=== PATIENT | female | born 1980 | race Caucasian/White ===

== ENCOUNTER 2025-02-26 21:18 | Observation (INO) | payer OTHER, SELFPAY ==
--- NOTE | ~2025-02-26 | CT_ITS ---
EXAMINATION: CT pelvis wo con DATE: 02/27/2025 01:01 INDICATION: Left hip pain post fall TECHNIQUE: High resolution computed tomography (CT) of the pelvis was performed without intravenous contrast. Additional sagittal and coronal reconstructions were performed. Automated exposure control and iterative reconstruction technique were employed. The dose-length product was 1051.27 mGy-cm. COMPARISON: Radiographs dated 02/26/2025 FINDINGS: Noncemented bilateral total hip arthroplasties which are in near-anatomic alignment. Distal tips of the femoral components extend beyond the caudal margin of the field of imaging. No periprosthetic fractures identified. There are prominent lucencies in the bilateral supra-acetabular regions which suggests particle disease. No evident loosening of the arthroplasty components. There is a nondisplaced sagittal oriented fracture of the left sacral ala. Additional minimally displaced fractures of the left superior pubic ramus and left pubic body. Mild to moderate lower lumbar spondylosis with moderate to severe facet osteoarthritis. Bladder, uterus and bilateral adnexa are unremarkable. There are few diverticula without adjacent from trace stranding along the sigmoid colon. Normal appendix. No free fluid in the pelvis. There are some skin thickening and subcutaneous stranding along the pannus of the anterior pelvic wall which could be seen with cellulitis. No pathologically enlarged pelvic or inguinal lymphadenopathy. IMPRESSION: 1. Minimally displaced fractures of the left sacral ala, left superior pubic ramus and left pubic body. 2. 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 Reviewed, dictated and finalized at location A. [facility] IMPRESSION: 1. Minimally displaced fractures of the left sacral ala, left superior pubic ra mus and left pubic body. 2. 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
--- NOTE | ~2025-02-26 | XR_ITS ---
Examination: XR hip LT 2V w AP pelvis Clinical History: fall Comparison: None Technique: 2 views left hip with AP pelvis Findings/impression: No acute abnormality- 1. Left hip arthroplasty intact without associated fracture or dislocation. 2. No pelvic fracture identified but pubic rami poorly seen due to soft tissue attenuation. 3. Single view right hip arthroplasty intact. Reviewed, dictated and finalized at location R. DEVELOPER
--- NOTE | ~2025-02-26 | XR_ITS ---
Examination: XR knee LT 3V Clinical History: fall Comparison: None Technique: 3 views left knee Findings/impression: 1. Arthroplasty intact without associated fracture or effusion. 2. Small posterior calcifications or joint bodies. Reviewed, dictated and finalized at location R. E COMM[employer] MERCHANT
--- NOTE | ~2025-02-26 | US_ITS ---
EXAMINATION: US venous doppler [facility] DATE: 02/28/2025 16:24 INDICATION: Lower extremity swelling. TECHNIQUE: Grayscale ultrasound images without and with compression and Doppler ultrasound images of the bilateral lower extremity veins were obtained. COMPARISON: None. FINDINGS: The visualized portions of right common femoral vein, profunda (deep) femoral vein, femoral vein, popliteal vein, peroneal veins, posterior tibial veins, and greater saphenous vein outflow are patent. The visualized portions of left common femoral vein, profunda femoral vein, femoral vein, popliteal vein, peroneal veins, posterior tibial veins, and greater saphenous vein outflow are patent. IMPRESSION: 1. No evidence of DVT involving major veins of both Reviewed, dictated and finalized at location T. LE BRANDER
[2025-02-26 21:13] VITALS: BP 120/91; PULSE 97; RESP 19; TEMP 36.4; O2SAT 100
[2025-02-26 21:31] VITALS: BP 130/55; PULSE 91; RESP 20; O2SAT 100
[2025-02-26 21:46] VITALS: BP 135/58; PULSE 90; RESP 15; O2SAT 100
[2025-02-26 22:01] VITALS: BP 132/60; PULSE 95; RESP 14; O2SAT 99
--- OUTSIDE RECORDS SUMMARY | 2025-02-26 23:57 | XMS_ITS ---
Author Organization [facility] Address [address] [place] [address] Care Team Providers Care Eyewear Manufacturing Tech Name Role Phone Yari Wu MD Primary Care Prov ider Leah Moran MD Unavailable [phone] Robert Winkler MD Unavailable [phone] Dedrick Kim MD PhD Unavailable [phone] Johnna Walls RN Unavailable [phone] Transplant Episode Liver Candidate [facility] ([place], [place]) - [facility] Evaluation began on 08/10/2024 Marked as Active on 08/10/2024 Reason: Evaluation - Standard Liver CoordinatorJohnna Walls RN Fax: N/A Email: N/A Scores Score Value Updated Expires Exceptions/Juhi sons CPRA Not available MELD (Calc) 22 02/03/2025 Chinik Organ Diagnosis Organ Primary Contributory Liver Cirrhosis: Autoimmune Care Team Name Role Phone Fax Email Johnna Walls RN Liver Coordinator [phone] N/A N/A Debbie Brooks RN Secondary Coordinator [phone] N/A Robert Winkler MD Referring Physician [phone] N/A Sherrie Álvarez Primary Virtual Recruiter N/A N/A N/A Vanda Flood Resident Services Manager [phone] N/A N/A Events Pre-Transplant Referred: 08/10/2024 Evaluation began: 08/10/2024 Committee: 09/22/2024
--- OUTSIDE RECORDS SUMMARY | 2025-02-26 23:57 | XMS_ITS | Encounter Summary ---
Author Organization [facility] Address [address] [place] [address] Phone Care Team Providers Care Purchasing Coordinator Name Role Phone Yari Wu MD Primary Care Prov ider Leah Moran MD Unavailable [phone] Robert Winkler MD Unavailable Dedrick Kim MD PhD Unavailable [phone] Johnna Walls RN Unavailable [phone] Cheryl Owusu RN Unavailable [phone] Encounter Details Date Type Department Care Team (Latest Contact Info) Description 01/05/2025 Results Follow-Up [facility] Medicine Allergy and Immunology [address] [facility] [address] [place] [address] Adithya Ferrari MD [address] [place] [address] Respiratory pathogen panel Nasopharyngeal, Immune competence, CT Sinus WO Contrast, Cytomegalovirus (CMV) DNA PCR, quantitative Blood Social History Tobacco Use Types Packs/Day Years Used Date Smoking Tobacco: Never Smokeless Tobacco: Never [facility] Utilities Answer Date Recorded In the past 12 months has [employer] electric, gas, oil, or water company threatened to shut off services in your home? No 09/09/2023 Social Connection and Isolation Panel Answer Date Recorded In a typical week, how many times do you talk on the phone with family, friends, or neighbors? More than three times a week 09/09/2023 How often do you get togethe r with friends or relatives? More than three times a week 09/09/2023 How often do you attend chur ch or islam services? Patient declined 09/09/2023 Do you belong to any clubs o r organizations such as mosque groups, unions, fraternal or athletic groups, or school groups? Patient declined 09/09/2023 How often do you attend meet ings of the clubs or organizations you belong to? Patient declined 09/09/2023 Are you , , di vorced, , never , or living with a partner? Never 09/09/2023 Overall Financial Resource Strain (CARDIA) Answe r Date Recorded How hard is it for you to pa y for the very basics like food, housing, medical care, and heating? Not hard at all 08/31/2023 PHQ-2 Answer Date Recorded PHQ-2 Total Score 2 09/17/2024 Exercise Vital Sign Answer Date Recorde d On average, how many days pe r week do you engage in moderate to strenuous exercise (like a brisk walk)? 0 days 08/31/2023 On average, how many minutes do you engage in exercise at this level? 0 min 08/31/2023 Hunger Vital Sign Answer Date Recorded Within the past 12 months, y ou worried that your food would run out before you got the money to buy more. Never true 09/09/19 24 Within the past 12 months, t he food you bought just didn't last and you didn't have money to get more. Never true 09/09/2023 PRAPARE - Transportation Answer Date Re corded In the past 12 months, has l ack of transportation kept you from medical appointments or from getting medications? No 10/2023 In the past 12 months, has l ack of transportation kept you from meetings, work, or from getting things needed for daily living? No 09/09/2023 PHQ-9 Answer Date Recorded PHQ-9 Total Score 11 09/17/2024 Housing Stability Vital Sign Answer Edin e Recorded In the last 12 months, was t here a time when you were not able to pay the mortgage or rent on time? No 09/09/2023 In the past 12 months, how m any times have you moved where you were living? 0 09/09/2023 At any time in the past 12 m [facility], were you homeless or living in a intermediate (including now)? No 09/09/2023 AUDIT-C Answer Date Recorded Frequency of Alcohol Consumption Not on file 12/15/2024 Q2: How many drinks containi ng alcohol do you have on a typical day when you are drinking? Patient does not drink Frequency of Binge Drinking Not on file 12/02 Personal Safety Answer Date Recorded Have you ever been in or are you currently in a harmful physical or emotional relationship or is someone making you feel afraid or unsafe? Denies 09/15/2024 Comments No Sex and Gender Information Value Date Recorded Sex Assigned at Not on file Legal Sex Female 7:24 AM JEWELRY JOBBER Gender Identity Not on file Sexual Orientation Not on file documented as of this encounter Plan of Treatment Upcoming Encounters Date Type Department Care Team (Latest Contact Info) Description 03/11/2025 12:15 PM JEWELRY JOBBER Hospital Encounter [facility] Operating Room [address] [place] [address] [id number] Jay Desouza MD [address] [id number] 03/11/2025 12:15 PM JEWELRY JOBBER - 03/11/2025 1:[address] [facility] Surgery [facility] Operating Room [id number] [place] [address] Jay Desouza MD [address] [address] LARYNGOSCOPY W BIOPSIES Scheduled Procedures Name Priority Associated Diagnoses Date/Ti ms LARYNGOSCOPY PROCEDURE Chronic laryngitis 03/11/2025 12:15 PM JEWELRY JOBBER TRANSPLANT LIVER Encounter for pre-transplant evaluation for liver transplant Autoimmune hepatitis (HCC) documented as of this encounter Visit Diagnoses Not on filedocumented in this encounter Additional Health Concerns Infection Onset Date Last Indicated Resolved Time COVID: Suspected 01/05/2025 01/05/2025 01/05/2025 10:00 PM JEWELRY JOBBER Ring Surveillance: C. auris 01/20/2025 01/20/2025 01/27/2025 7:26 PM JEWELRY JOBBER documented as of this encounter Care Teams Purchasing Coordinator Relationship Specialty Start Date End Date Yari Wu MD PCP - General Family Medicine 06/11/19 Leah Moran MD [address] [place] [address] Referring Physician Gastroenterology 06/13/22 Robert Winkler MD [address] [facility] [address] [place] [address] Referring Physician Transplant Hepatology 06/21/22 Dedrick Kim MD PhD [address] [facility] [address] [place] [address] Referring Physician Allergy and Immunology 06/19/23 Johnna Walls RN [address] [facility] [address] [place] [address] Verifying Specialist 08/10/24 Cheryl Owusu RN [address] [facility] [address] [place] [address] SHOP Outpatient Oral And Maxillofacial Surgeon 01/22/25 02/03/25 documented as of this encounter
--- OUTSIDE RECORDS SUMMARY | 2025-02-26 23:57 | XMS_ITS | Clinical Summary ---
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 Name Role Phone Yari Wu MD Primary Care Prov ider Leah Moran MD Unavailable [phone] Robert Winkler MD Unavailable [phone] Dedrick Kim MD PhD Unavailable [phone] Johnna Walls RN Unavailable [phone] Allergies Active Allergy Reactions Criticality Noted Date Comments Infliximab Itching,Rash Medium 03/10/2015 Cerner Allergy Text Annotation: Remicade rigors Penicillins Rash,Other (See comments) Medium 11/10/2014 Reaction: Cerner Allergy Text Annotation: penicillins Fever Reaction was as a child Medications pantoprazole DR (PROTONIX) 20 mg EC tabletIndications: GERD Take 1 tablet (20 mg total) by mouth nightly 10/10/19 24 Active ursodioL (ACTIGALL) 300 mg capsuleIndications :Cholestatic liver disease Take 5 capsules (1,500 mg total) by mouth with evening meal 150 capsule 11 06/09/19 25 Active predniSONE (DELTASONE) 5 mg tabletIndications: Autoimmune hepatitis (HCC) Take 1.5 tablets (7.5 mg) by mouth daily 7.5 mg QD 45 tablet 11 08/11/19 25 026 Active venlafaxine XR (EFFEXOR-XR) 150 mg 24 hr capsuleIndications :Anxiety with Depression Take 1 capsule (150 mg total) by mouth every morning 75 mg tab and 150 mg tab to equal total daily dose of 225mg 08/20/19 25 Active venlafaxine XR (EFFEXOR-XR) 75 mg 24 hr capsuleIndications :Anxiety with Depression Take 1 capsule (75 mg total) by mouth every morning 75 mg tab and 150 mg tab to equal total daily dose of 225mg 08/20/19 25 Active ibuprofen 200 mg tab/cap Take 2 tablet/capsule (400 mg total) by mouth every 6 (six) hours as needed for pain, fever or headaches Active amitriptyline (ELAVIL) 25 mg tabletIndications: Insomnia, unspecified type Take 2 tablets (50 mg total) by mouth nightly 60 tablet 09/22/19 Active Gammagard Liquid infusionIndication s:D83.9 Gammagard Liquid 14 grams subq weekly 560 mL 10/07/19 Active Additional Information Patient taking differently: Gammagard Liquid 14 grams subq weekly on Fridays, Indications: D83.9, Reported on 01/22/2025 furosemide (Lasix) 20 mg tablet Take 1 tablet (20 mg total) by mouth daily 30 tablet 11/28/19 Active spironolactone (ALDACTONE) 50 mg tablet Take 1 tablet (50 mg total) by mouth daily 30 tablet 11/28/19 Active EPINEPHrine 0.3 mg/0.3 mL auto-injection syringe Active potassium chloride ER 10 mEq CR tablet TAKE 1 TABLET BY MOUTH EVERY DAY FOR 30 DAYS 12/05/19 Active ondansetron ODT (ZOFRAN-ODT) 4 mg disintegrating tablet Take 1 tablet (4 mg total) by mouth every 12 (twelve) hours as needed for nausea or vomiting 20 tablet 01/14/20 25 Active apixaban (ELIQUIS) 5 mg tabletIndications: atrial fibrillation Take 1 tablet (5 mg total) by mouth every 12 (twelve) hours 60 tablet 1 01/22/20 25 Active metoprolol tartrate (LOPRESSOR) 25 mg immediate release tablet Take 1 tablet (25 mg total) by mouth 2 (two) times a day 60 tablet 01/22/20 25 Active sulfamethoxazole-t rimethoprim (BACTRIM) 800-160 mg per tabletIndications: Low natural killer cell count determined by flow cytometry Take 1 tablet (160 mg of trimethoprim total) by mouth daily 30 tablet 02/06/20 25 026 Active sulfamethoxazole-t rimethoprim (BACTRIM) 800-160 mg per tabletIndications: Low natural killer cell count determined by flow cytometry Take 1 tablet (160 mg of trimethoprim total) by mouth 2 (two) times a day for 14 days Patient received 1st dose in the clinic today. 27 tablet 01/23/20 25 025 nystatin 100,000 unit/mL suspensionIndicati ons:oral candidiasis Take 5 mL (500,000 Units total) by mouth 4 (four) times a day for 10 days 200 mL 01/30/20 025 minocycline (MINOCIN,DYNACIN) 100 mg capsuleIndications :Chronic sinusitis Take 1 capsule (100 mg total) by mouth 2 (two) times a day for 10 days 20 capsule 01/30/20 025 Active Problems Problem Noted Date Diagnosed Date Chronic laryngitis 01/27/2025 Hypotension, unspecified hypotension type 2024 Assessment & Plan (01/21/2025 5:08 PM STAFFING COORDINATOR): Most likely iso breakthrough aflutter despite BB usage. Dehydration also possible iso diuretic usage for ascites ppx though she has been on a stable dose of those medications for 2 mos. BP has recovered since resolution of SVT and s/p 1L. Patient with concern for orthostatic symptoms iso BB usage. - orthostatic vitals positive - restart spironolactone 50mg daily for ascites prevention - discontinue furosemide and KCl to avoid over-diuresis Assessment & Plan (01/20/2025 3:14 PM STAFFING COORDINATOR): Most likely iso breakthrough aflutter despite BB usage. Dehydration also possible iso diuretic usage for ascites ppx though she has been on a stable dose of those medications for 2 mos. BP has recovered since resolution of SVT and s/p 1L. Patient with concern for orthostatic symptoms iso BB usage. - hold diuretics: spironolactone and furosemide - orthostatic vitals Assessment & Plan (01/19/2025 10:18 PM STAFFING COORDINATOR): Most likely iso BB usage with clear onset with start of metop tartrate with worsening upon consolidation to metop succinate. No other changes in intake or recent illness to precipitate hypotension. Dehydration also possible iso diuretic usage for ascites ppx though she has been on a stable dose of those medications for an extended period of time without issue. - hold diuretics: spironolactone and furosemide - hold BB - orthostatic vitals Anemia 01/19/2025 Assessment & Plan (01/21/2025 9:14 AM STAFFING COORDINATOR): Chronic, at baseline of ~10.5 - daily CBC Assessment & Plan (01/20/2025 7:13 AM STAFFING COORDINATOR): Chronic, at baseline of ~10.5 - daily CBC Assessment & Plan (01/19/2025 10:18 PM STAFFING COORDINATOR): Chronic, at baseline of ~10.5 - daily CBC Sustained SVT 01/19/2025 Assessment & Plan (01/21/2025 5:08 PM STAFFING COORDINATOR): Unclear etiology, TTE relatively normal. Was being treated with BB outpatient but has since developed symptomatic hypotension. Original EKG on presentation with A flutter, has since converted to sinus rhythm. Symptoms likely 2/2 breakthrough aflutter which warrants ongoing rate control. - discontinue amiodarone, chemically converted and not a good group home medication for this patient - restart metoprolol 25 BID - start eliquis 5mg BID- [id number] score of 3 (Female, Hx of PE)' -DOAC burroughs checked- eliquis and xarelto $0 - cardiology follow-up outpatient, scheduled by patient in 1 month Assessment & Plan (01/20/2025 3:14 PM STAFFING COORDINATOR): Unclear etiology, TTE relatively normal. Was being treated with BB outpatient but has since developed symptomatic hypotension. Original EKG on presentation with A flutter, has since converted to sinus rhythm. Symptoms likely 2/2 breakthrough aflutter which warrants ongoing rate control. - discontinue amiodarone, chemically converted and not a good group home medication for this patient - restart metoprolol 25 BID - patient considering starting DOAC, [id number] score of 3 (Female, Hx of PE)- previously refused 2/2 bruising but with education has decided to consider DOAC burroughs checked- eliquis and xarelto $0 - cardiology follow-up outpatient Assessment & Plan (01/19/2025 10:18 PM STAFFING COORDINATOR): Unclear etiology, TTE relatively normal. Was being treated with BB outpatient but has since developed symptomatic hypotension. Original EKG on presentation with A flutter, has since converted to sinus rhythm. - continue amiodarone gtt to complete 18 at 0.5mg/min - likely resume metop tartrate 6.25 TID tomorrow and monitor inpatient for tolerance and efficacy Atrial flutter 12/04/2024 Assessment & Plan (01/21/2025 5:08 PM STAFFING COORDINATOR): Unclear etiology, TTE relatively normal. Was being treated with BB outpatient but has since developed symptomatic hypotension. Original EKG on presentation with A flutter, has since converted to sinus rhythm. Symptoms likely 2/2 breakthrough aflutter which warrants ongoing rate control. - discontinue amiodarone, chemically converted and not a good group home medication for this patient - restart metoprolol 25 BID - start eliquis 5mg BID- [id number] score of 3 (Female, Hx of PE)' -DOAC burroughs checked- eliquis and xarelto $0 - cardiology follow-up outpatient, scheduled by patient in 1 month Assessment & Plan (01/20/2025 3:14 PM STAFFING COORDINATOR): Unclear etiology, TTE relatively normal. Was being treated with BB outpatient but has since developed symptomatic hypotension. Original EKG on presentation with A flutter, has since converted to sinus rhythm. Symptoms likely 2/2 breakthrough aflutter which warrants ongoing rate control. - discontinue amiodarone, chemically converted and not a good group home medication for this patient - restart metoprolol 25 BID - patient considering starting DOAC, [id number] score of 3 (Female, Hx of PE)- previously refused 2/2 bruising but with education has decided to consider DOAC burroughs checked- eliquis and xarelto $0 - cardiology follow-up outpatient Assessment & Plan (01/19/2025 10:18 PM STAFFING COORDINATOR): Unclear etiology, TTE relatively normal. Was being treated with BB outpatient but has since developed symptomatic hypotension. Original EKG on presentation with A flutter, has since converted to sinus rhythm. - continue amiodarone gtt to complete 18 at 0.5mg/min - likely resume metop tartrate 6.25 TID tomorrow and monitor inpatient for tolerance and efficacy Encounter for pre-transplant evaluation for liver transplant 08/10/2024 ILD (interstitial lung disease) 11/13/2023 Assessment & Plan (01/21/2025 9:14 AM STAFFING COORDINATOR): Follows with pulmonology, Not currently on treatment, most likely 2/2 RA and lung injury due to organizing PNA. - monitor spO2 Assessment & Plan (01/20/2025 7:13 AM STAFFING COORDINATOR): Follows with pulmonology, Not currently on treatment, most likely 2/2 RA and lung injury due to organizing PNA. - monitor spO2 Assessment & Plan (01/19/2025 10:18 PM STAFFING COORDINATOR): Follows with pulmonology, Not currently on treatment, most likely 2/2 RA and lung injury due to organizing PNA. - monitor spO2 Fever of unknown origin (FUO) 08/31/2023 Morbid obesity 05/13/2023 CVID (common variable immunodeficiency) 01/30/20 23 Assessment & Plan (01/21/2025 9:14 AM STAFFING COORDINATOR): Follows with allergy and immunology, On weekly gamma guard qFriday - monitor for infection Assessment & Plan (01/20/2025 7:13 AM STAFFING COORDINATOR): Follows with allergy and immunology, On weekly gamma guard qFriday - monitor for infection Assessment & Plan (01/19/2025 10:18 PM STAFFING COORDINATOR): Follows with allergy and immunology, On weekly gamma guard qFriday - monitor for infection Recurrent sinusitis 01/29/2023 Assessment & Plan (01/21/2025 9:14 AM STAFFING COORDINATOR): Follows with ENT, Unclear etiology - continue minocycline 100mg BID Assessment & Plan (01/20/2025 7:13 AM STAFFING COORDINATOR): Follows with ENT, Unclear etiology - continue minocycline 100mg BID Assessment & Plan (01/19/2025 10:18 PM STAFFING COORDINATOR): Follows with ENT, Unclear etiology - continue minocycline 100mg BID 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 Sinus tachycardia 06/22/2022 Bronchiectasis 06/21/2022 Dyspnea on exertion 06/21/2022 Posterior rhinorrhea 06/21/2022 Calculus of gallbladder with out cholecystitis without obstruction 06/12/2022 Overview (06/12/2022): Added automatically from request for surgery [id number] Splenomegaly 02/16/2020 Vitamin D deficiency 04/25/2018 Iron deficiency 04/25/2018 Depression 03/20/2018 Assessment & Plan (01/21/2025 9:14 AM STAFFING COORDINATOR): -Continue venlafaxine 225mg daily Assessment & Plan (01/20/2025 7:13 AM STAFFING COORDINATOR): -Continue venlafaxine 225mg daily Assessment & Plan (01/19/2025 10:18 PM STAFFING COORDINATOR): -Continue venlafaxine 225mg daily Gastroesophageal reflux disease 10/07/2017 Assessment & Plan (01/21/2025 9:14 AM STAFFING COORDINATOR): Chronic, no hx of ulcer - continue pantoprazole 20mg daily Assessment & Plan (01/20/2025 7:13 AM STAFFING COORDINATOR): Chronic, no hx of ulcer - continue pantoprazole 20mg daily Assessment & Plan (01/19/2025 10:18 PM STAFFING COORDINATOR): Chronic, no hx of ulcer - continue pantoprazole 20mg daily ELVIA (obstructive sleep apnea) 07/22/2015 Overview (06/16/2019): Doesn't tolerate CPAP well due to nasal congestion. Autoimmune hepatitis 07/22/2015 Overview (09/04/2023): >>OVERVIEW FOR ELEVATED LIVER ENZYMES WRITTEN ON 06/16/2019 11:49 AM BY ROSSANA TUCKER RN 02/2015 AP 75, ALT 24, AST 10 03/18/2015 AP 115, ALT 55, AST 41 05/20/2015 AP 85, ALT 67 AST 64 07/12/2015 AP 93, ALT 34, AST 13 As of 07/2015 total cumulative MTX dose over 8g 01/08/19 AP 123, ALT 54, AST 32, t bili 0.7 04/23/19 AP 413, ALT 129, AST 103, t bili 0.9, total prot 6.0, plts 326 04/27/19 US: fatty liver, no focal lesions, large stone in GB 04/27/19 CT w/contrast: multiple faint hypoattenuating areas up to 3.6 cm, large stone in GB, splenomegaly, mild adenopathy throughout 05/23/19 MRI: Non-specific sub-centimeter liver lesion, splenomegaly and non- specific adenopathy, repeat imaging in 1 yr Assessment & Plan (01/21/2025 9:14 AM STAFFING COORDINATOR): Follows with GI, Chronic jaundice/hyperbilirubinemia. On spironolactone and furosemide for ascites ppx. No hx of EGD so EV unknown, no hx of HE. - continue prednisone 7.5mg daily - monitor LFTs Assessment & Plan (01/20/2025 7:13 AM STAFFING COORDINATOR): Follows with GI, Chronic jaundice/hyperbilirubinemia. On spironolactone and furosemide for ascites ppx. No hx of EGD so EV unknown, no hx of HE. - continue prednisone 7.5mg daily - monitor LFTs Assessment & Plan (01/19/2025 10:18 PM STAFFING COORDINATOR): Follows with GI, Chronic jaundice/hyperbilirubinemia. On spironolactone and furosemide for ascites ppx. No hx of EGD so EV unknown, no hx of HE. 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 Assessment & Plan (09/19/2023 6:45 PM CDT): Markedly improved on higher dose prednisone, similar to previous episodes. I will cut the prednisone to 20 mg daily. With the improvement in liver biochemistries, liver transplantation is not an immediate need. She is going to check to see when open enrollment is for her insurance so she may change to a carrier that we are contracted with. Ideally, I would like to control her autoimmune liver disease medically, however, higher dose steroids has been the only treatment that keeps things under control. I added tacrolimus and this has not allowed me to spare the corticosteroids as I had hoped. I will slowly taper the prednisone and also consider the use of other immunosuppressive agents. She will return in 6 months or when clinically indicated. 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 Recent repeat liver bx (11/2022) with moderate lymphoplasmacytic inflammation involving the lobules again suggesting significant autoimmune component to her pathology. She has been treated with a number of different medications including bile acid therapy, azathioprine, mycophenolate, corticosteroids, and most recently tacrolimus (initiated in 01/2023). She initially was not tolerating tacro but now with correction of dosing and appropriate troughs she has been doing well on the medication. Recent lab work from 03/01 indicates some improvement in transaminases but with sustained elevation of alkaline phosphatase. ALP 707 (from 547 on 01/28), AST 229 (from 449 01/28), ALT 142 (from 247 on 01/28). Will continue tacrolimus treatment for now given ongoing immune-mediated injury and continue trending liver chemistries monthly for response. PLAN: - cont tacrolimus 1mg daily, prednisone 2.5mg daily, mycophenolate 1g BID, ursodiol 1500mg daily - cont q2wk tacrolimus troughs, qmonthly liver chemistries - 6 [address] follow up [address]. 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 The transaminases have nearly normalized. Thus, one possibility is that the autoimmune hepatitis is under control and the persistently elevated transaminases are related to MUKHERJEE. The cholestasis has improved, though the alkaline phosphatase remains markedly elevated. I had hoped to see normalization. An alternative therapy would be the addition of obeticholic acid to ursodeoxycholic acid, even though this is not a classic case of primary biliary cholangitis. Based on the laboratory work today, I am not going to make changes. If the alkaline phosphatase fails to improve, I will seek approval for obeticholic acid. We also discussed the possibility of another liver biopsy to see if there was additional improvement in the immune mediated injury. Psoriatic arthropathy 12/02/2014 group home current use of anticoagulant therapy 0 03/12/2013 Cough 01/12/2013 Pulmonary embolism 01/12/2013 Rheumatoid arthritis 06/23/2009 Assessment & Plan (01/21/2025 9:14 AM STAFFING COORDINATOR): Follows with rheumatology, not currently on treatment aside from prednisone for autoimmune hepatitis - monitor for symptoms Assessment & Plan (01/20/2025 7:13 AM STAFFING COORDINATOR): Follows with rheumatology, not currently on treatment aside from prednisone for autoimmune hepatitis - monitor for symptoms Assessment & Plan (01/19/2025 10:18 PM STAFFING COORDINATOR): Follows with rheumatology, not currently on treatment aside from prednisone for autoimmune hepatitis - monitor for symptoms Resolved Problems Problem Noted Date Diagnosed Date Resolved Date Hyponatremia 01/19/2025 01/20/2025 Assessment & Plan (01/20/2025 7:13 AM STAFFING COORDINATOR): Unclear etiology, possibly 2/2 GRIS Assessment & Plan (01/19/2025 10:18 PM STAFFING COORDINATOR): Unclear etiology, possibly 2/2 GRIS GRIS (acute kidney injury) 01/19/2025 Assessment & Plan (01/20/2025 7:13 AM STAFFING COORDINATOR): Likely iso demand ischemia due to hypotension. - hold diuretics - renal dosing as appropriate Assessment & Plan (01/19/2025 10:18 PM STAFFING COORDINATOR): Likely iso demand ischemia due to hypotension. - hold diuretics - renal dosing as appropriate Encounters Date Type Department Care Team Description 02/18/2025 Results Follow-Up [facility] Medicine Allergy and Immunology [address] [facility] [address] [place] [address] Adithya Ferrari MD Miscellaneous Test Sendout Chemistry 02/04/2025 SHOP/CHAP Subsequent Outreach [facility] [address] [place] [address] [phone] [place] [address] Cheryl Owusu RN 02/03/2025 7:10 AM STAFFING COORDINATOR Lab [facility] ([facility]) [address] [place] [phone] Autoimmune hepatitis (HCC); Low natural killer cell count determined by flow cytometry; CD4 T lymphopenia; Autoimmune liver disease; Rheumatoid arthritis with positive rheumatoid factor, involving unspecified site (HCC); ILD (interstitial lung disease) (HCC); High serum interleukin 18 (IL-18); Natural killer (NK) cell deficiency; CVID (common variable immunodeficiency); Oral thrush 02/03/2025 Telephone [facility] Medicine Allergy and Immunology [address] [place] [address] [address] [place] [phone] Liz Davila, BRITTANY Labs 01/29/2025 SHOP/CHAP Subsequent [facility]reach [facility] [address] [facility] [phone] [place] [phone] Cheryl Owusu RN 01/28/2025 Results Follow-Up [facility] Allergy and Immunology [address] [place] [address] [address] [place] [phone] Adithya Ferrari MD BLOOD MISC TO [facility] 01/26/2025 3:59 PM STAFFING COORDINATOR - 01/26/2025 11:59 PM STAFFING COORDINATOR Hospital Encounter [facility] [address] [place] [phone] CVID (common variable immunodeficiency); Recurrent sinusitis Discharge Disposition: Discharge to home or self care 01/26/2025 1:58 PM STAFFING COORDINATOR - 01/26/2025 11:59 PM STAFFING COORDINATOR Hospital Encounter [facility] [address] [place] [address] Discharge Disposition: Discharge to home or self care 01/26/2025 1:20 PM STAFFING COORDINATOR Office Visit [facility] Infectious Diseases [address] [place] [phone] Katya Hinson MD Recurrent sinusitis (Primary Dx); CD4 T lymphopenia; Immunocompromised state 01/22/2025 1:20 PM STAFFING COORDINATOR - 01/22/2025 11:59 PM STAFFING COORDINATOR Hospital Encounter [facility] [address] [place] [address] Discharge Disposition: Discharge to home or self care 01/22/2025 9:00 AM STAFFING COORDINATOR Office Visit [facility] Allergy and Immunology [address] [facility] Medical [facility] Building [address] [place] [phone] Eileen Carolina NP Adverse effect of drug, sequela (Primary Dx); Low natural killer cell count determined by flow cytometry 01/22/2025 Telephone [facility] Medicine Allergy and Immunology [address] [facility] [address] [place] [phone] Radha Lawton RN 01/22/2025 Orders Only [facility] Infectious Diseases [address] [phone] Adithya Frerari MD Recurrent sinusitis; Long-term current use of intravenous immunoglobulin (IVIG); CD4 T lymphopenia; Autoimmune liver disease; Rheumatoid arthritis with positive rheumatoid factor, involving unspecified site (HCC); ILD (interstitial lung disease) ([facility]); Low natural killer cell count determined by flow cytometry 01/22/2025 Orders Only [facility] Medicine Allergy and Immunology [address] [facility] [address] [place] [address] Eileen Carolina NP Low natural killer cell count determined by flow cytometry (Primary Dx) 01/22/2025 SHOP/CHAP Initial Outreach [facility] [address] [phone] [place] [phone] Mily Astorga LCSW 01/22/2025 SHOP/CHAP Initial Eligibility Review [facility] [address] [phone] [place] [phone] Mily Astorga LCSW 01/19/2025 1:47 AM STAFFING COORDINATOR - 01/21/2025 6:30 PM STAFFING COORDINATOR Hospital Encounter [facility] [address] [place] [address] Florencia Thomas MD Bakeer, MD Mariah Richardson, MD Papa Craft, MD Epifanio Licea Anubha, MD Hypotension, unspecified hypotension type (Primary Dx); Atrial tachycardia Discharge Disposition: Discharge to home or self care 01/13/2025 Orders Only [facility] Medicine Allergy and Immunology [address] [place] [phone] Adithya Ferrari MD 01/13/2025 Telephone [facility] Medicine Allergy and Immunology [address] [place] [address] [address] [place] [address] Adithya Ferrari MD Prior Auth (Please see note) 01/13/2025 Telephone [facility] Medicine Allergy and Immunology [address] [place] [phone] Radha Lawton RN 01/13/2025 Telephone [facility] Medicine Allergy and Immunology [address] [place] [phone] Adithya Ferrari MD 01/05/2025 5:39 PM STAFFING COORDINATOR - 01/05/2025 11:59 PM STAFFING COORDINATOR Hospital Encounter [facility] [address] [place] [address] CVID (common variable immunodeficiency); Chronic maxillary sinusitis; Recurrent sinusitis; Pharyngitis, unspecified etiology Discharge Disposition: Discharge to home or self care 01/05/2025 1:30 PM STAFFING COORDINATOR Office Visit [facility] Allergy and Immunology [address] [phone] Adithya Ferrari MD CVID (common variable immunodeficiency); Chronic maxillary sinusitis; Recurrent sinusitis; Pharyngitis, unspecified etiology; Autoimmune liver disease; Rheumatoid arthritis with positive rheumatoid factor, involving unspecified site (HCC); ILD (interstitial lung disease) (HCC); Low natural killer cell count determined by flow cytometry; CD4 T lymphopenia; Long-term current use of intravenous immunoglobulin (IVIG); Oral thrush; High serum interleukin 18 (IL-18); Natural killer (NK) cell deficiency 01/05/2025 Results Follow-Up [facility] Immunology [address] [place] [phone] Adithya Ferrari MD Respiratory pathogen panel Nasopharyngeal, Immune competence, CT Sinus WO Contrast, Cytomegalovirus (CMV) DNA PCR, quantitative Blood 01/05/2025 Orders Only [facility] Infectious Diseases [address] [phone] Araseli Wilson MD CVID (common variable immunodeficiency); Recurrent sinusitis 12/28/2024 Telephone [facility] [address] [place] [phone] Adithya Ferrari MD 12/23/2024 4:12 PM CDT - 12/23/2024 11:59 PM CDT Hospital Encounter [facility] [address] [place] [phone] ELVIA (obstructive sleep apnea); CVID (common variable immunodeficiency); Autoimmune hepatitis (HCC); ILD (interstitial lung disease) (HCC); Seropositive rheumatoid arthritis (HCC) Discharge Disposition: Discharge to home or self care 12/16/2024 Telephone [facility] Medicine Pulmonary [address] [facility] 8th [place] [address] [place] [address] Murtaza Butt MD 12/16/2024 Orders Only [facility] Medicine Rheumatology [address] 2[address] [place] [address] Estuardo Ford 12/16/2024 Results Follow-Up [facility] Transplant Liver [address] [facility] [address] Mailstop [phone] [place] [address] Johnna Walls RN Transthoracic Echo (TTE) With Bubble Study 12/15/2024 4:00 PM CDT Office Visit [facility] Medicine Pulmonary [address] [facility] [address] [place] [phone] Murtaza Butt MD ELVIA (obstructive sleep apnea) (Primary Dx); CVID (common variable immunodeficiency); Autoimmune hepatitis (HCC); ILD (interstitial lung disease) (HCC); Seropositive rheumatoid arthritis (HCC) 12/15/2024 2:49 PM CDT - 12/15/2024 11:59 PM CDT Hospital Encounter [facility] Medicine PFT Lab [address] [facility] [address] [place] [phone] Chronic cough; ELVIA (obstructive sleep apnea); Gastroesophageal reflux disease, unspecified whether esophagitis present; CVID (common variable immunodeficiency); Autoimmune hepatitis (HCC); ILD (interstitial lung disease) (HCC); Rheumatoid arthritis involving both hands with positive rheumatoid factor (HCC) Discharge Disposition: Discharge to home or self care 12/15/2024 1:29 PM CDT - 12/15/2024 11:59 PM CDT Hospital Encounter [facility] Radiology Echo Lab [address] [address] Chronic cough; ELVIA (obstructive sleep apnea); Gastroesophageal reflux disease, unspecified whether esophagitis present; CVID (common variable immunodeficiency); Autoimmune hepatitis (HCC); ILD (interstitial lung disease) (HCC); Rheumatoid arthritis involving both hands with positive rheumatoid factor (HCC) Discharge Disposition: Discharge to home or self care 12/15/2024 Results [facility] Rhe[facility] [address] [facility] 5th [place] [address] [place] [address] Gareth Rodriguez MD XR Hand Bilateral 3 or More Views of Each 12/14/2024 9:30 PM CDT Lab [facility] [address] [place] [phone] 12/14/2024 9:15 PM CDT Lab [facility] [address] [place] [phone] Autoimmune hepatitis (HCC) 12/14/2024 6:07 PM CDT - 12/14/2024 11:59 PM CDT Hospital Encounter [address] [address] Discharge Disposition: Discharge to home or self care 12/14/2024 5:48 PM CDT - 12/14/2024 11:59 PM CDT Hospital Encounter [facility] [address] [place] [phone] Rheumatoid arthritis involving multiple sites with positive rheumatoid factor (HCC) Discharge Disposition: Discharge to home or self care 12/14/2024 5:16 PM CDT - 12/14/2024 11:59 PM CDT Hospital Encounter [facility] [address] [place] [address] Rheumatoid arthritis involving multiple sites with positive rheumatoid factor (HCC) Discharge Disposition: Discharge to home or self care 12/14/2024 4:30 PM CDT [facility] [address] [facility] 5th [place] [address] [place] [phone] Gareth Rodriguez MD Rheumatoid arthritis involving multiple sites with positive rheumatoid factor (HCC) (Primary Dx); Dry mouth; CVID (common variable immunodeficiency); ILD (interstitial lung disease) (HCC); Recurrent sinusitis; Autoimmune hepatitis (HCC) 12/09/2024 Telephone [facility] Transplant Liver [address] [facility] [address] Mailstop [phone] [place] [address] Ryann Jennings 12/04/2024 Orders Only [facility] Transplant Liver [address] [facility] [address] Mailstop [phone] [place] [address] Johnna Walls, RN 12/04/2024 Telephone [facility] Transplant Liver [address] [facility] [address] Mailstop [phone] [place] [address] Johnna Walls, RN 11/27/2024 Telephone [facility] Transplant Liver [address] [facility] [address] Mailstop [phone] [place] [address] Johnna Walls, RN from Last 3 Months Immunizations Immunization Administration Dates Next Due Hep A / Hep B 04/29/2017,03/29/2017 Influenza, Quadrivalent, Светлана l Culture-based MDCK, Preservative Free, Antibiotic Free, Intramuscular 12/17/2022 Influenza, Quadrivalent, Spl it, Intramuscular 01/08/2019,2018,12/26/2016,11/14 Influenza, Quadrivalent, Spl it, Preservative Free, Intramuscular 12/06/2014,11/02/2012 Influenza, Trivalent, IM (MDV) 12/26/2016 Influenza, Trivalent, Preser vative Free, Intramuscular 11/29/2008 Pneumococcal Conjugate PCV 13 06/27/2017 Pneumococcal Polysaccharide PPV23 05/08/2022 Surgical History Surgery Date Site/Laterality Comments TOTAL KNEE ARTHROPLASTY 03/04/2009 - 03/03/2010 Left Knee Replacement - (Added by TW Conv) TOTAL HIP ARTHROPLASTY 03/04/2010 - 03/03/2011 Bilateral Both hips replaced US GUIDED BIOPSY LIVER 05/24/2021 N/A THORACOTOMY 03/04/2006 - 03/03/2007 Right for complications of pneumonia per pt per pt thoracoscopy CHOLECYSTECTOMY 06/25/2022 BRONCHOSCOPY 2006 OTHER SURGICAL HISTORY 03/04/1983 - 03/03/1984 ureter (duplex ureter) when was 4, in surprise Medical History Medical History Date Comments Sleep apnea 2014 Doesnt use machi ne d/t claustrophobia GERD (gastroesophageal reflux disease) PONV (postoperative nausea and vomiting) Obesity 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-- Currently treated with Cellcept-- followed by squilgeer, Dr Winkler Rheumatoid arthritis (HCC) RA dx d 1997-- 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 by 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 sewing 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, Dr Giovanna Riggins Bronchiectasis Sinusitis Nosebleed 2023 Sleep difficulties Autoimmune disease 1997 Family History Medical History Relation Name Comments Diabetes Brother Koby Preston Hypertension Brother Koby Preston Allergies Father Virgil Preston Snoring Father Virgil Preston No Known Problems Half-Brother Asthma Mother Myrna Flood Diabetes Mother Myrna Flood Fibromyalgia Mother Myrna Flood Family history of fibromyalgia - (Added by TW Conv) Osteoarthritis Mother Myrna Flood Family histor y of osteoarthritis - (Added by TW Conv) anxiety/depression Mother Myrna Flood fast heart beat Mother Myrna Flood fibromyalgia Mother Myrna Flood graves disease Mother Myrna Flood osteonecropathy Mother Myrna Flood Anesthesia problems Neg Hx Relation Name Status Comments Brother Koby Preston Alive Father Virgil Preston Alive Half-Brother Alive Mother Myrna Flood Social History Tobacco Use Types Packs/Day Years Used Date Smoking Tobacco: Never Smokeless Tobacco: Never Tobacco Cessation:Counseling Given: Not Answered Social Connection and Isolation Panel Answer Date Recorded In a typical week, how many times do you talk on the phone with family, friends, or neighbors? More than three times a week 09/09/2023 How often do you get togethe r with friends or relatives? More than three times a week 09/09/2023 How often do you attend chur or confucianist services? Patient declined 09/09/2023 Do you belong to any clubs o r organizations such as zoroastrian groups, unions, fraternal or athletic groups, or [...] exercise at this level? 0 min 08/31/2023 PRAPARE - Transportation Answer Date Re corded [...] any time in the past 12 m [facility], were you homeless or living in a prison (including now)? No 09/09/2023 Social Connection and Isolation Panel Answer Date Recorded In a typical week, how many times do you talk on the phone with family, friends, or neighbors? More than three times a week 01/22/2025 How often do you get togethe r with friends or relatives? More than three times a week 01/22/2025 How often do you attend chur ch or confucianist services? Never 01/22/2025 Do you belong to any clubs o r organizations such as zoroastrian groups, unions, fraternal or athletic groups, or school groups? No 01/22/2025 How often do you attend meet ings of the clubs or organizations you belong to? Never 01/22/2025 Are you , , di vorced, , never , or living with a partner? Never 01/22/2025 AUDIT-C Answer Date Recorded Frequency of Alcohol Consumption Not on file 01/22/2025 Q2: How many drinks containi ng alcohol do you have on a typical day when you are drinking? Patient does not drink Frequency of Binge Drinking Not on file 01/03 Overall Financial Resource Strain (CARDIA) Answe r Date Recorded How hard is it for you to pa y for the very basics like food, housing, medical care, and heating? Not hard at all 01/22/2025 Hunger Vital Sign Answer Date Recorded Within the past 12 months, y ou worried that your food would run out before you got the money to buy more. Never true 01/23/20 25 Within the past 12 months, t he food you bought just didn't last and you didn't have money to get more. Never true 01/22/2025 PRAPARE - Transportation Answer Date Re corded In the past 12 months, has l ack of transportation kept you from medical appointments or from getting medications? No 01/03 In the past 12 months, has l ack of transportation kept you from meetings, work, or from getting things needed for daily living? No 01/22/2025 Housing Stability Vital Sign Answer Edin e Recorded In the last 12 months, was t here a time when you were not able to pay the mortgage or rent on time? No 01/22/2025 In the past 12 months, how m any times have you moved where you were living? 0 01/22/2025 At any time in the past 12 m [facility], were you homeless or living in a prison (including now)? No 01/22/2025 [facility] Utilities Answer Date Recorded In the past 12 months has th e electric, gas, oil, or water company threatened to shut off services in your home? No 01/22/2025 Personal Safety Answer Date Recorded Have you ever been in or are you currently in a harmful physical or emotional relationship or is someone making you feel afraid or unsafe? Denies 01/19/2025 Comments No Sex and Gender Information Value Date Recorded Sex Assigned at Not on file Legal Sex Female 7:24 AM STAFFING COORDINATOR Gender Identity Not on file Sexual Orientation Not on file Last Filed Vital Signs Vital Sign Reading Time Taken Comments Blood Pressure 105/68 01/26/2025 1:19 PM STAFFING COORDINATOR Pulse 82 01/26/2025 1:19 PM STAFFING COORDINATOR Temperature 37.3 C (99.1 F) 01/26/2025 1:19 PM STAFFING COORDINATOR Respiratory Rate 18 01/22/2025 9:09 AM STAFFING COORDINATOR Oxygen Saturation 99% 01/26/2025 1:19 PM STAFFING COORDINATOR Inhaled Oxygen Concentration - - Weight 124.5 kg (274 lb 6.4 oz) 01/26/2025 1:19 PM STAFFING COORDINATOR Height 172.7 cm (5' 8) 01/26/2025 1:19 PM STAFFING COORDINATOR Body Mass Index 41.72 01/26/2025 1:19 PM STAFFING COORDINATOR Plan of Treatment Upcoming Encounters Date Type Department Care Team (Latest Contact Info) Description 03/11/2025 12:15 PM STAFFING COORDINATOR [facility] [address] [address] [id number] Jay Desouza MD [address] [phone] 03/11/2025 12:15 PM STAFFING COORDINATOR - 03/11/2025 1:20 PM STAFFING COORDINATOR [facility] [address] [address] [address] Jay Desouza MD [address] [employer] [address] [phone] LARYNGOSCOPY W BIOPSIES Scheduled Procedures Name Priority Associated Diagnoses Date/Ti me LARYNGOSCOPY PROCEDURE Chronic laryngitis 03/11/2025 12:15 PM STAFFING COORDINATOR TRANSPLANT LIVER Encounter for pre-transplant evaluation for liver transplant Autoimmune hepatitis (HCC) Health Maintenance Due Date Last Done Comments Breast Cancer Screening-Mammogram 1982 Cervical Cancer Screening 1982 DTaP/Tdap/Td Vaccine (1 - Tdap) 1993 Varicella Vaccines (1 of 2 - 13+ 2-dose series) 1995 Regular Well Visit/Exam 18-64 02/08/2000 Zoster Vaccine (1 of 2) 2001 HPV Vaccines (1 - 3-dose SCD M series) 2009 Depression Screening 09/16/2025 09/16/2024, 09/17/19 25 Pneumococcal vaccine <65 (3 of 3 - PCV20 or PCV21) 05/09/2027 05/08/2022, 06/27/2017 Hepatitis C Screening Completed 09/15/2024 , 04/19/2021, 06/17/2019 Influenza Vaccine Completed 11/06/2024, , 12/17/2022, Additional history exists Medical Devices Implanted Type Area Lending Manager Device Identifier Shelf Expiration Date Model / Serial / Lot [employer] Surgery Ligaclip Extra Ligate Open Medium Large Clip Internal Titanium Latex Free Lt300 - [id number] Implanted:Qty: 1 on 06/25/2022 by Fariba Shook MD at [facility] Clip N/A: Bile Duct [employer] [id number] 04/03/2027 [id number] / / [id number] [employer] End[employer] Surgery Ligaclip Extra Ligate Open Medium Large Clip Internal Titanium Latex Free Lt300 - [id number] Implanted:Qty: 1 on 06/25/2022 by Fariba Shook MD at [facility] Clip N/A: Bile Duct [employer] [id number] 08/31/2026 LT300 / / [id number] Procedures Procedure Name Priority Date/Time Associated Diagnosis Comments MISCELLANEOUS MOLECULAR SEND-OUT REQUEST Routine 02/03/2025 7:24 AM STAFFING COORDINATOR MISCELLANEOUS TEST SENDOUT CHEMISTRY Routine 02/03/2025 7:24 AM STAFFING COORDINATOR MISCELLANEOUS TEST SENDOUT CHEMISTRY Routine 02/03/2025 7:24 AM STAFFING COORDINATOR MISCELLANEOUS TEST SENDOUT CHEMISTRY Routine 02/03/2025 7:24 AM STAFFING COORDINATOR TIFFANIE-BAJWA VIRUS (EBV) DNA QUANTITATIVE Routine 02/03/2025 7:24 AM STAFFING COORDINATOR Low natural killer cell count determined by flow cytometry CD4 T lymphopenia CYTOMEGALOVIRUS (CMV) DNA, QUANT GEN LAB Routine 02/03/2025 7:24 AM STAFFING COORDINATOR Low natural killer cell count determined by flow cytometry CD4 T lymphopenia EGFR Routine 02/03/2025 7:20 AM STAFFING COORDINATOR Autoimmune hepatitis (HCC) BILIRUBIN, DIRECT Routine 02/03/2025 7:2 0 AM STAFFING COORDINATOR Autoimmune hepatitis (HCC) DIFFERENTIAL AUTO Routine 02/03/2025 7:2 0 AM STAFFING COORDINATOR Autoimmune hepatitis (HCC) FERRITIN Routine 02/03/2025 7:20 AM STAFFING COORDINATOR High serum interleukin 18 (IL-18) LACTATE DEHYDROGENASE Routine 02/03/2025 7:20 AM STAFFING COORDINATOR High serum interleukin 18 (IL-18) TRIGLYCERIDES Routine 02/03/2025 7:20 AM STAFFING COORDINATOR High serum interleukin 18 (IL-18) CBC WITH AUTO DIFFERENTIAL Routine 02/03/2025 7:20 AM STAFFING COORDINATOR Autoimmune hepatitis (HCC) COMPREHENSIVE METABOLIC PANEL Routine 02/03/2025 7:20 AM STAFFING COORDINATOR Autoimmune hepatitis (HCC) PROTIME-INR Routine 02/03/2025 7:20 AM STAFFING COORDINATOR Autoimmune hepatitis (HCC) T-SPOT.TB Routine 02/03/2025 7:20 AM STAFFING COORDINATOR CVID (common variable immunodeficiency) Autoimmune liver disease Rheumatoid arthritis with positive rheumatoid factor, involving unspecified site (HCC) ILD (interstitial lung disease) (HCC) Low natural killer cell count determined by flow cytometry CD4 T lymphopenia High serum interleukin 18 (IL-18) GENOMICS ([facility]) Routine 01/29/2025 12:00 AM STAFFING COORDINATOR Autoimmune liver disease Rheumatoid arthritis with positive rheumatoid factor, involving unspecified site (HCC) ILD (interstitial lung disease) (HCC) Low natural killer cell count determined by flow cytometry CD4 T lymphopenia [address] SINUS WO CONTRAST Schedule Routine, Read Routine (OP Routine) 01/26/2025 4:18 PM STAFFING COORDINATOR CVID (common variable immunodeficiency) Recurrent sinusitis MISCELLANEOUS TEST SENDOUT CHEMISTRY Routine 01/26/2025 1:58 PM STAFFING COORDINATOR CD4 T lymphopenia LYMPHOCYTE PROLIFERATION TO MITOGENS Routine 01/26/2025 1:58 PM STAFFING COORDINATOR CD4 T lymphopenia MISCELLANEOUS TEST SENDOUT CHEMISTRY Routine 01/26/2025 1:54 PM STAFFING COORDINATOR BLOOD MISC TO VERONICA Routine 01/26/2025 1: 54 PM STAFFING COORDINATOR BLOOD MISC TO [place] Routine 01/22/2025 1: 20 PM STAFFING COORDINATOR BLOOD MISC TO [place] Routine 01/22/2025 1:20 PM STAFFING COORDINATOR DIFFERENTIAL AUTO Routine 01/22/2025 1:2 0 PM STAFFING COORDINATOR CD4 T lymphopenia CBC WITH AUTO DIFFERENTIAL Routine 01/22/2025 1:20 PM STAFFING COORDINATOR CD4 T lymphopenia IMMUNE COMPETENCE Routine 01/22/2025 1:2 0 PM STAFFING COORDINATOR CD4 T lymphopenia MISCELLANEOUS TEST SENDOUT CHEMISTRY Routine 01/22/2025 1:13 PM STAFFING COORDINATOR STREP PNEUMONIAE ANTIBODY SEROTYPES Routine 01/22/2025 1:13 PM STAFFING COORDINATOR Recurrent sinusitis Long-term current use of intravenous immunoglobulin (IVIG) SCAN - LABS 01/22/2025 EGFR Timed 01/21/2025 9:38 AM STAFFING COORDINATOR DIFFERENTIAL AUTO Timed 01/21/2025 9:3 8 AM STAFFING COORDINATOR COMPREHENSIVE METABOLIC PANEL Timed 01/21/2025 9:38 AM STAFFING COORDINATOR CBC WITH AUTO DIFFERENTIAL Timed 01/21/2025 9:38 AM STAFFING COORDINATOR INFECTION PREVENTION ZACH AURIS PCR, SURVEILLANCE Routine 01/20/2025 11:06 AM STAFFING COORDINATOR EGFR Routine 01/20/2025 6:18 AM STAFFING COORDINATOR PHOSPHORUS Routine 01/20/2025 6:18 AM STAFFING COORDINATOR MAGNESIUM Routine 01/20/2025 6:18 AM STAFFING COORDINATOR BASIC METABOLIC PANEL Routine 01/20/2025 6:18 AM STAFFING COORDINATOR TROPONIN I HIGH-SENSITIVITY SERIES (BASELINE, 2HR, 4HR, 6HR) Routine 01/19/2025 11:59 AM STAFFING COORDINATOR URINALYSIS, MICROSCOPIC ONLY STAT 01/19/2025 10:34 AM STAFFING COORDINATOR URINALYSIS AND REFLEX TO MICROSCOPIC AND CULTURE STAT 01/19/2025 10:34 AM STAFFING COORDINATOR CRITICAL RESULT CALLBACK CARDIO CHEM Timed 01/19/2025 9:58 AM STAFFING COORDINATOR TROPONIN I HIGH-SENSITIVITY 6-HOUR Timed 01/19/2025 9:58 AM STAFFING COORDINATOR TROPONIN I HIGH-SENSITIVITY 4-HOUR Timed 01/19/2025 8:08 AM STAFFING COORDINATOR ECG 12-LEAD Routine 01/19/2025 7:16 AM STAFFING COORDINATOR ECG 12-LEAD STAT 01/19/2025 7:02 AM STAFFING COORDINATOR TROPONIN I HIGH-SENSITIVITY 2-HOUR Timed 01/19/2025 5:50 AM STAFFING COORDINATOR TROPONIN I HIGH-SENSITIVITY SERIES (BASELINE, 2HR, 4HR, 6HR) STAT 01/19/2025 4:03 AM STAFFING COORDINATOR XR CHEST 1 VIEW ED 01/19/2025 3:13 AM STAFFING COORDINATOR ECG 12-LEAD STAT 01/19/2025 2:46 AM STAFFING COORDINATOR T4, FREE STAT 01/19/2025 2:02 AM STAFFING COORDINATOR THYROID FUNCTION CASCADE STAT 01/19/2025 2:02 AM STAFFING COORDINATOR PRO B-TYPE NATRIURETIC PEPTIDE STAT 01/19/2025 2:02 AM STAFFING COORDINATOR EGFR STAT 01/19/2025 2:02 AM STAFFING COORDINATOR DIFFERENTIAL AUTO STAT 01/19/2025 2:0 2 AM STAFFING COORDINATOR HCG, BLOOD, QUANTITATIVE STAT 01/19/2025 2:02 AM STAFFING COORDINATOR TROPONIN I HIGH-SENSITIVITY Routine 01/19/2025 2:02 AM STAFFING COORDINATOR COMPREHENSIVE METABOLIC PANEL STAT 01/19/2025 2:02 AM STAFFING COORDINATOR CBC WITH AUTO DIFFERENTIAL STAT 01/19/2025 2:02 AM STAFFING COORDINATOR RESPIRATORY PATHOGEN PANEL Routine 01/05/2025 4:23 PM STAFFING COORDINATOR CVID (common variable immunodeficiency) Chronic maxillary sinusitis Recurrent sinusitis Pharyngitis, unspecified etiology THROAT CULTURE Routine 01/05/2025 4:23 PM STAFFING COORDINATOR CVID (common variable immunodeficiency) Chronic maxillary sinusitis Recurrent sinusitis Pharyngitis, unspecified etiology IMMUNE COMPETENCE Routine 01/05/2025 3:3 9 PM STAFFING COORDINATOR CVID (common variable immunodeficiency) Recurrent sinusitis ERYTHROCYTE SEDIMENTATION RATE Routine 01/05/2025 3:39 PM STAFFING COORDINATOR CVID (common variable immunodeficiency) Recurrent sinusitis CRP (ACUTE PHASE) Routine 01/05/2025 3:3 9 PM STAFFING COORDINATOR CVID (common variable immunodeficiency) Recurrent sinusitis STREP PNEUMONIAE ANTIBODY SEROTYPES Routine 01/05/2025 3:39 PM STAFFING COORDINATOR CVID (common variable immunodeficiency) Recurrent sinusitis ALLERGEN MUGWORT (WEED) IGE Routine 01/05/2025 3:39 PM STAFFING COORDINATOR CVID (common variable immunodeficiency) Recurrent sinusitis ALLERGEN PECAN (TREE) IGE Routine 01/05/2025 3:39 PM STAFFING COORDINATOR CVID (common variable immunodeficiency) Recurrent sinusitis ALLERGEN OTTONIEL WHITE (TREE) IGE Routine 01/05/2025 3:39 PM STAFFING COORDINATOR CVID (common variable immunodeficiency) Recurrent sinusitis ALLERGEN COTTONWOOD (TREE) IGE Routine 01/05/2025 3:39 PM STAFFING COORDINATOR CVID (common variable immunodeficiency) Recurrent sinusitis ALLERGEN MOUSE URINE PROTEINS (ANIMAL) IGE E72 Routine 01/05/2025 3:39 PM STAFFING COORDINATOR CVID (common variable immunodeficiency) Recurrent sinusitis ALLERGEN EPITHELIA/DANDER DOG (ANIMAL) IGE Routine 01/05/2025 3:39 PM STAFFING COORDINATOR CVID (common variable immunodeficiency) Recurrent sinusitis ALLERGEN DERMATOPHAGOIDES PTERONYSSINUS (INSECT) IGE Routine 01/05/2025 3:39 PM STAFFING COORDINATOR CVID (common variable immunodeficiency) Recurrent sinusitis ALLERGEN DERMATOPHAGOIDES FARINAE (INSECT) IGE Routine 01/05/2025 3:39 PM STAFFING COORDINATOR CVID (common variable immunodeficiency) Recurrent sinusitis ALLERGEN COCKROACH COSTA RICAN (INSECT) IGE Routine 01/05/2025 3:39 PM STAFFING COORDINATOR CVID (common variable immunodeficiency) Recurrent sinusitis ALLERGEN EPITHELIA/DANDER CAT (ANIMAL) IGE Routine 01/05/2025 3:39 PM STAFFING COORDINATOR CVID (common variable immunodeficiency) Recurrent sinusitis ALLERGEN PENICILLIUM CHRYSOGENUM (MOLD) IGE Routine 01/05/2025 3:39 PM STAFFING COORDINATOR CVID (common variable immunodeficiency) Recurrent sinusitis ALLERGEN CLADOSPORIUM HERBARUM (MOLD) IGE Routine 01/05/2025 3:39 PM STAFFING COORDINATOR CVID (common variable immunodeficiency) Recurrent sinusitis ALLERGEN ASPERGILLUS FUMIGATUS (MOLD) IGE Routine 01/05/2025 3:39 PM STAFFING COORDINATOR CVID (common variable immunodeficiency) Recurrent sinusitis ALLERGEN ALTERNARIA TENUIS (MOLD) IGE Routine 01/05/2025 3:39 PM STAFFING COORDINATOR CVID (common variable immunodeficiency) Recurrent sinusitis ALLERGEN NETTLE (WEED) IGE Routine 01/05/2025 3:39 PM STAFFING COORDINATOR CVID (common variable immunodeficiency) Recurrent sinusitis ALLERGEN RAGWEED SHORT/COMMON (WEED) IGE Routine 01/05/2025 3:39 PM STAFFING COORDINATOR CVID (common variable immunodeficiency) Recurrent sinusitis ALLERGEN PIGWEED ROUGH (WEED) IGE Routine 01/05/2025 3:39 PM STAFFING COORDINATOR CVID (common variable immunodeficiency) Recurrent sinusitis ALLERGEN LAWTON'S QUARTER (WEED) IGE Routine 01/05/2025 3:39 PM STAFFING COORDINATOR CVID (common variable immunodeficiency) Recurrent sinusitis ALLERGEN PLANTAIN TAMAZIGHT (WEED) IGE Routine 01/05/2025 3:39 PM STAFFING COORDINATOR CVID (common variable immunodeficiency) Recurrent sinusitis ALLERGEN JARED GRASS (GRASS) IGE Routine 01/05/2025 3:39 PM STAFFING COORDINATOR CVID (common variable immunodeficiency) Recurrent sinusitis ALLERGEN RADHA GRASS (GRASS) IGE Routine 01/05/2025 3:39 PM STAFFING COORDINATOR CVID (common variable immunodeficiency) Recurrent sinusitis ALLERGEN BERMUDA GRASS (GRASS) IGE Routine 01/05/2025 3:39 PM STAFFING COORDINATOR CVID (common variable immunodeficiency) Recurrent sinusitis ALLERGEN WALNUT (TREE) IGE Routine 01/05/2025 3:39 PM STAFFING COORDINATOR CVID (common variable immunodeficiency) Recurrent sinusitis ALLERGEN SYCAMORE COSTA RICAN (TREE) IGE Routine 01/05/2025 3:39 PM STAFFING COORDINATOR CVID (common variable immunodeficiency) Recurrent sinusitis ALLERGEN OAK RED (TREE) IGE Routine 01/05/2025 3:39 PM STAFFING COORDINATOR CVID (common variable immunodeficiency) Recurrent sinusitis ALLERGEN MULBERRY (TREE) IGE Routine 01/05/2025 3:39 PM STAFFING COORDINATOR CVID (common variable immunodeficiency) Recurrent sinusitis ALLERGEN MOUNTAIN JUNIPER (TREE) IGE Routine 01/05/2025 3:39 PM STAFFING COORDINATOR CVID (common variable immunodeficiency) Recurrent sinusitis ALLERGEN MAPLE/BOX ELDER (TREE) IGE Routine 01/05/2025 3:39 PM STAFFING COORDINATOR CVID (common variable immunodeficiency) Recurrent sinusitis ALLERGEN ELM (TREE) IGE Routine 01/05/2025 3:39 PM STAFFING COORDINATOR CVID (common variable immunodeficiency) Recurrent sinusitis ALLERGEN BIRCH COMMON SILVER (TREE) IGE Routine 01/05/2025 3:39 PM STAFFING COORDINATOR CVID (common variable immunodeficiency) Recurrent sinusitis IGE Routine 01/05/2025 3:39 PM STAFFING COORDINATOR CVID (common variable immunodeficiency) Recurrent sinusitis IGG Routine 01/05/2025 3:39 PM STAFFING COORDINATOR CVID (common variable immunodeficiency) Recurrent sinusitis CT CHEST HIGH RESOLUTION WO CONTRAST Routine 12/23/2024 4:56 PM CDT ELVIA (obstructive sleep apnea) CVID (common variable immunodeficiency) Autoimmune hepatitis (HCC) ILD (interstitial lung disease) (HCC) Seropositive rheumatoid arthritis (HCC) PULMONARY FUNCTION TEST (PFT) Routine 12/15/2024 3:18 PM CDT Chronic cough ELVIA (obstructive sleep apnea) Gastroesophageal reflux disease, unspecified whether esophagitis present CVID (common variable immunodeficiency) Autoimmune hepatitis (HCC) ILD (interstitial lung disease) (HCC) Rheumatoid arthritis involving both hands with positive rheumatoid factor (HCC) TRANSTHORACIC ECHO (TTE) COMPLETE W DOPPLER/CF W CONTRAST W BUBBLE Routine 12/15/2024 2:30 PM CDT Chronic cough ELVIA (obstructive sleep apnea) Gastroesophageal reflux disease, unspecified whether esophagitis present CVID (common variable immunodeficiency) Autoimmune hepatitis (HCC) ILD (interstitial lung disease) (HCC) Rheumatoid arthritis involving both hands with positive rheumatoid factor (HCC) XR HAND BILATERAL 3 OR MORE VIEWS OF EACH Schedule Routine, Read Routine (OP Routine) 12/14/2024 6:10 PM CDT Rheumatoid arthritis involving multiple sites with positive rheumatoid factor (HCC) XR FOOT BILATERAL 2 VIEWS OF EACH Schedule Routine, Read Routine (OP Routine) 12/14/2024 6:10 PM CDT Rheumatoid arthritis involving multiple sites with positive rheumatoid factor (HCC) EGFR Routine 12/14/2024 5:36 PM CDT Autoimmune hepatitis (HCC) DIFFERENTIAL AUTO Routine 12/14/2024 5:3 6 PM CDT Autoimmune hepatitis (HCC) FERRITIN Routine 12/14/2024 5:36 PM CDT Autoimmune hepatitis (HCC) IRON PROFILE W/ IBC Routine 12/14/2024 5 :36 PM CDT Autoimmune hepatitis (HCC) CBC WITH AUTO DIFFERENTIAL Routine 12/14/2024 5:36 PM CDT Autoimmune hepatitis (HCC) COMPREHENSIVE METABOLIC PANEL Routine 12/14/2024 5:36 PM CDT Autoimmune hepatitis (HCC) PROTIME-INR Routine 12/14/2024 5:36 PM CDT Autoimmune hepatitis (HCC) HEPATITIS C ANTIBODY Routine 09/15/2024 9:40 AM CDT Encounter for pre-transplant evaluation for liver transplant Autoimmune hepatitis (HCC) from Last 3 Months or Most Recently Relevant to Health Maintenance Results * -Miscellaneous Molecular Send-out Request (02/03/2025 7:24 AM STAFFING COORDINATOR) Result 1 Test Name:T-Cell Receptor V-Beta, Spectratyping ([place]) Specimen Type:PB Result: See attached scanned report for results. Test name T-Cell Receptor V-Beta, Spectratyping ([place]) [facility] Blood 02/03/2025 7:24 AM STAFFING COORDINATOR 02/03/2025 10:03 AM STAFFING COORDINATOR Adithya Ferrari MD LAB GENETIC TESTING Final Resu lt Performing Organization Address City/[facility]/ZIP Co de Phone Number [facility] Department [place] [address] * Cytomegalovirus (CMV) DNA PCR, quantitative Blood (02/03/2025 7:24 AM STAFFING COORDINATOR) Pathologist [facility] CMV DNA Not Detected [facility] Comment: Interpretive Data: The quantifiable range of this assay is 34 IUnits/mL to 10,000,000 IUnits/mL (1.53 log IUnits/mL to 7.0 log IUnits/mL). Testing was performed by the TAYLOR 6800 CMV Test ([employer] Testing performed at [facility]. Current interpretive data was last revised on 2020. Blood 02/03/2025 7:24 AM STAFFING COORDINATOR 02/03/2025 8:35 AM STAFFING COORDINATOR Adithya Ferrari MD LAB MICROBIOLOGY - GENERAL ORD ERABLES Final Result Performing Organization Address City/[facility] Co de Phone Number [facility] [place] [address] [facility] * Tiffanie-Bajwa Virus (EBV) DNA Quantitative Blood (02/03/2025 7:24 AM STAFFING COORDINATOR) Pathologist [facility] EBV DNA Result Not Detected [facility] Comment: Interpretive Data The quantifiable range of this assay is 35 IUnits/mL to 100,000,000 IUnits/mL (1.54 log IUnits/mL to 8.0 log IUnits/mL). Testing was performed by the TAYLOR 6800 EBV Test ([employer] Testing performed at [facility]. Current interpretive data was last revised on 2022. Blood 02/03/2025 7:24 AM STAFFING COORDINATOR 02/03/2025 8:35 AM STAFFING COORDINATOR us Adithya Ferrari MD LAB MICROBIOLOGY - GENERAL ORD ERABLES Final Result Performing Organization Address [facility] Co de Phone Number [facility] [place] [address] [facility] * Miscellaneous Test Sendout Chemistry (02/03/2025 7:24 AM STAFFING COORDINATOR) Test name Perforin/Gran zyme B Result 1 Specimen Type: Blood Result: See scanned result in Medical Record. [facility] Blood 02/03/2025 7:24 AM STAFFING COORDINATOR 02/03/2025 9:43 AM STAFFING COORDINATOR us Adithya Ferrari MD LAB BLOOD ORDERABLES Final Res ult Performing Organization Address [facility] [place] [address] * Miscellaneous Test Sendout Chemistry (02/03/2025 7:24 AM STAFFING COORDINATOR) Test name [id number] Mobilization (NK Cell Degranulation) Result 1 Specimen Type: Blood Result: See scanned result in Medical Record. [facility] Blood 02/03/2025 7:24 AM STAFFING COORDINATOR 02/03/2025 8:47 AM STAFFING COORDINATOR Adithya Ferrari MD LAB BLOOD ORDERABLES Final Res ult Performing Organization Address City/[facility] [place] [address] * Miscellaneous Test Sendout Chemistry (02/03/2025 7:24 AM STAFFING COORDINATOR) Test name Natural Killer Cell Functional Result 1 See Comment [facility] Comment:Credited, testing do wn. Blood 02/03/2025 7:24 AM STAFFING COORDINATOR 02/03/2025 8:36 AM STAFFING COORDINATOR Adithya Ferrari MD LAB BLOOD ORDERABLES Edited Re sult - Final [facility] Department [place] [address] * T-SPOT.TB Blood (02/03/2025 7:20 AM STAFFING COORDINATOR) [facility] [address] T-SPOT.TB Negative SeeBel Comment: Normal Value: Negative A negative test result does not exclude the possibility of exposure to or infection with Mycobacterium tuberculosis (M. tuberculosis). Patients with recent exposure to TB infected individuals exhibiting a negative T-SPOT.TB result should be considered for retesting within 6 weeks or if other relevant clinical symptoms indicate. Results from T-SPOT.TB testing must be used in conjunction with each individual's epidemiological history, current medical status, and results of other diagnostic evaluations. The T-SPOT.TB test is qualitative and results are reported as positive, borderline or negative, given that the test controls perform as expected. In line with the Centers for Disease Control and Prevention's 2010 recommendation to report quantitative measurements alongside the qualitative result, the laboratory provides spot counts for informational purposes only. The T-SPOT.TB test should not be interpreted as a quantitative test. T-SPOT.TB Panel A Spot Count 0 [facility] T-SPOT.TB Panel B Spot Count 0 [facility] T-SPOT.TB Negative Control Passed [facility] T-SPOT.TB Positive Control Passed [facility] Comment: Test Performed at: [facility], [employer] [address] [place] [phone] ELIO MENDOZA,PHD Blood 02/03/2025 7:20 AM STAFFING COORDINATOR 02/03/2025 10:37 AM STAFFING COORDINATOR Adithya Ferrari MD LAB MICROBIOLOGY - GENERAL ORD ERABLES Final Result [facility] Department [place] [address] * eGFR (02/03/2025 7:20 AM STAFFING COORDINATOR) Pathologist [facility] eGFR 60 >=60 mL/min/1. 73 m2 Comment: Interpretive Data Reference Interval Normal >/= 90 mL/min/1.73m2 Mildly decreased* 60 - 89 mL/min/1.73m2 Mildly to moderately decreased 45 - 59 mL/min/1.73m2 Moderately to severely decreased 30 - 44 mL/min/1.73m2 Severely decreased 15 - 29 mL/min/1.73m2 Kidney Failure < 15 mL/min/1.73m2 *Relative to young adult level Estimated glomerular filtration rate is determined by the 2020 CKD-EPI equation recommended by the National Kidney Foundation (A Unifying Approach to GFR Estimation: Recommendations of the NKF-ASK Task Force on Reassessing the Inclusion of Race in Diagnosing Kidney Disease, JASN 2020). The CKD-EPI equation should not be used for patients with unstable renal function and has not been validated in children and those over 70. Current interpretive data was last reviewed 2021. Blood 02/03/2025 7:20 AM STAFFING COORDINATOR 02/03/2025 8:12 AM STAFFING COORDINATOR Robert Winkler MD LAB BLOOD ORDERABLES F inal Result [facility] Department [place] [address] * (ABNORMAL) Differential, auto (02/03/2025 7:20 AM STAFFING COORDINATOR) Pathologist [facility] Neutrophil abs 2.94 1.50 - 6.50 K/cumm Imm gran abs 0.02 0.00 - 0.10 K/cumm [facility] Lymphocyte abs 3.60(H) 0.80 - 3.30 K/cumm [facility] Monocyte abs 0.44 0.20 - 0.80 K/cumm [facility] Eosinophil abs 0.00 0.00 - 0.50 K/cumm [facility] Basophil abs 0.01 0.00 - 0.10 K/cumm [facility] Neutrophil pct 41.9 % [facility] Comment: Interpretive Data Percent cell count reference ranges are not reported, since discordance with absolute values may lead to misinterpretation of CBC data. Current Interpretive Data was last revised on 2017. Imm gran pct 0.3 % [facility] Comment: Interpretive Data Percent cell count reference ranges are not reported, since discordance with absolute values may lead to misinterpretation of CBC data. Current Interpretive Data was last revised on 2017. Lymphocyte pct 51.4 % [facility] Comment: Interpretive Data Percent cell count reference ranges are not reported, since discordance with absolute values may lead to misinterpretation of CBC data. Current Interpretive Data was last revised on 2017. Monocyte pct 6.3 % [facility] Comment: Interpretive Data Percent cell count reference ranges are not reported, since discordance with absolute values may lead to misinterpretation of CBC data. Current Interpretive Data was last revised on 2017. Eosinophil pct 0.0 % [facility] Comment: Interpretive Data Percent cell count reference ranges are not reported, since discordance with absolute values may lead to misinterpretation of CBC data. Current Interpretive Data was last revised on 2017. Basophil pct 0.1 % [facility] Comment: Interpretive Data Percent cell count reference ranges are not reported, since discordance with absolute values may lead to misinterpretation of CBC data. Current Interpretive Data was last revised on 2017. Blood 02/03/2025 7:20 AM STAFFING COORDINATOR 02/03/2025 8:12 AM STAFFING COORDINATOR us Robert Winkler MD LAB BLOOD ORDERABLES F inal Result [facility] Department [place] [address] * (ABNORMAL) CBC with auto differential (02/03/2025 7:20 AM STAFFING COORDINATOR) WBC 7.01 3.80 - 9.90 K/cumm Hgb 7.2(L) 11.9 - 15.5 g/dL [facility] Hct 21.9(L) 35.6 - 45.5 % [facility] Plt 236 150 - 400 K/cumm [facility] MPV 11.0 9.1 - 12.3 fL [facility] RBC 2.94(L) 3.90 - 5.20 M/cumm [facility] MCV 74.5(L) 81.3 - 96.4 fL [facility] MCH 24.5(L) 27.1 - 33.3 pg [facility] MCHC 32.9 32.3 - 35.7 g/dL [facility] RDW CV 23.1(H) 11.1 - 14.9 % [facility] RDW SD 62.6(H) 35.7 - 48.1 fL [facility] NRBC abs 0.00 0.00 - 0.01 K/cumm [facility] Blood 02/03/2025 7:20 AM STAFFING COORDINATOR 02/03/2025 8:12 AM STAFFING COORDINATOR Robert Winkler MD LAB BLOOD ORDERABLES F inal Result [facility] Department [place] [address] * (ABNORMAL) Protime-INR (02/03/2025 7:20 AM STAFFING COORDINATOR) PT 16.3(H) 10.2 - 13.5 sec INR 1.45(H) 0.90 - 1.20 [facility] Comment: Interpretive data Oral anticoagulant therapeutic ranges: Venous thromboembolism prophylaxis or treatment: 2.0-3.0 CARDIOLOGY Standard range: 2.0-3.0 High-intensity range: 2.5-3.5 Refer to indication-specific guidelines for appropriate target ranges for prosthetic heart valve replacement. Current interpretive data was last revised on 2019. Blood 02/03/2025 7:20 AM STAFFING COORDINATOR 02/03/2025 8:12 AM STAFFING COORDINATOR Robert Winkler MD LAB BLOOD ORDERABLES F inal Result Performing Organization Address [facility] Co de Phone Number [facility] [place] [address] * (ABNORMAL) Triglycerides (02/03/2025 7:20 AM STAFFING COORDINATOR) Triglycerides 151(H) <=149 mg/dL Comment: Interpretive Data Ages < or = 9 years Acceptable: <75 mg/dL Borderline high: 75-99 mg/dL High: >or= 100 mg/dL Ages 10 to 20 years Acceptable: <90 mg/dL Borderline high: 90-129 mg/dL High: >or= 130 mg/dL Ages > or = 20 years Desirable: <150 mg/dL Borderline high: 150-199 mg/dL High: 200-499 mg/dL Very high: >or= 499 mg/dL Literature References: 1. Expert Panel on Integrated Guidelines for Cardiovascular Health and Risk Reduction in Children and Adolescents. Pediatrics 2011;128:S213 2. NCEP Expert Panel. Circulation 2004;110:227 Current Interpretive Data was last revised on 2017. Blood 02/03/2025 7:20 AM STAFFING COORDINATOR 02/03/2025 8:12 AM STAFFING COORDINATOR Adithya Ferrari MD LAB BLOOD ORDERABLES Final Res ult Performing Organization Address [facility] Co de Phone Number [facility] [place] [address] * Lactate dehydrogenase (LD) (02/03/2025 7:20 AM STAFFING COORDINATOR) Lactate dehydrogenase (LDH) 130 100 - 250 Units/L Blood 02/03/2025 7:20 AM STAFFING COORDINATOR 02/03/2025 8:12 AM STAFFING COORDINATOR Adithya Ferrari MD LAB BLOOD ORDERABLES Final Res ult Performing Organization Address [facility] Co de Phone Number [facility] [place] [address] * Ferritin (02/03/2025 7:20 AM STAFFING COORDINATOR) [facility] [address] Ferritin 44 13 - 150 ng/mL Blood 02/03/2025 7:20 AM STAFFING COORDINATOR 02/03/2025 8:12 AM STAFFING COORDINATOR Adithya Ferrari MD LAB BLOOD ORDERABLES Final Res ult Performing Organization Address City/[facility]/ZIP Co de Phone Number [facility] Department [place] [address] * (ABNORMAL) Bilirubin, direct (02/03/2025 7:20 AM STAFFING COORDINATOR) [facility] [address] Bilirubin, direct 5.4(H) 0.1 - 0.3 mg/dL Blood 02/03/2025 7:20 AM STAFFING COORDINATOR 02/03/2025 8:12 AM STAFFING COORDINATOR Robert Winkler MD LAB BLOOD ORDERABLES F inal Result Performing Organization Address [facility] de Phone Number [facility] Department [place] [address] * (ABNORMAL) Comprehensive metabolic panel (02/03/2025 7:20 AM STAFFING COORDINATOR) [facility] [address] Sodium 138 135 - 145 mmol/L Potassium, pl 4.1 3.3 - 4.9 mmol/L [facility] Chloride 107 97 - 110 mmol/L [facility] CO2 20(L) 22 - 32 mmol/L [facility] Anion gap 11 2 - 15 mmol/L [facility] BUN 22 6 - 25 mg/dL [facility] Creatinine 1.17(H) 0.60 - 1.10 mg/dL [facility] Glucose 80 70 - 199 mg/dL [facility] Comment: Interpretive Data Fasting glucose >/= 126 mg/dl is diagnostic for diabetes. Fasting is defined as no caloric intake for at least 8 hours. Fasting glucose between 100 mg/dl to 125 mg/dl is diagnostic of prediabetes. In a patient with classic symptoms of hyperglycemia or hyperglycemic crisis, a random glucose >/= 200 mg/dl is diagnostic for diabetes. In the absence of unequivocal hyperglycemia, results should be confirmed by repeat testing. The classification and Diagnosis of Diabetes Diabetes Care 202; 46: S19-S40. Current interpretive data was last revised 2022. Calcium 8.7 8.5 - 10.3 mg/dL [facility] Bilirubin, total 7.0(H) 0.1 - 1.2 mg/dL [facility] Protein, pl 5.3(L) 6.5 - 8.5 g/dL [facility] Albumin 3.1(L) 3.5 - 5.0 g/dL [facility] Alk phos 247(H) 40 - 130 Units/L [facility] ALT 19 7 - 45 Units/L [facility] AST 28 10 - 45 Units/L [facility] Blood 02/03/2025 7:20 AM STAFFING COORDINATOR 02/03/2025 8:12 AM STAFFING COORDINATOR Robert Winkler MD LAB BLOOD ORDERABLES F inal Result [facility] Department [place] [address] * Genomics ([facility]) (01/29/2025 12:00 AM STAFFING COORDINATOR) Peripheral Blood For Pathologist Review 01/29/2025 02/03/2025 Narrative [facility] DIAGNOSTIC [facility] - CYTOGENETICS - 02/17/2025 4:23 AM STAFFING COORDINATOR REPORT IMAGES AND/OR SCANNED DOCUMENTS ONLY VIEWABLE IN PDF FORMAT Adithya Ferrari MD LAB GENETIC TESTING Edited Res ult - Final [facility] DIAGNOSTIC [facility] - CYTOGENETICS [address] [place] [address] * CT Sinus WO Contrast (01/26/2025 4:18 PM STAFFING COORDINATOR) Anatomical Region Laterality Modality Head and Neck N/A Computed Tomogra phy 01/26/2025 4:30 PM STAFFING COORDINATOR Impressions 01/26/2025 4:30 PM STAFFING COORDINATOR Chronic left maxillary sinusitis. Otherwise interval improvement of previously described left-sided predominant paranasal mucosal thickening. Electronically signed by: Jazz Estrella M.D. Narrative 01/26/2025 4:30 PM STAFFING COORDINATOR EXAMINATION: CT of the paranasal sinuses without contrast HISTORY: Sinusitis, chronic or recurrent Dx: CVID (common variable immunodeficiency) [D83.9 (ICD-10-CM)]; Recurrent sinusitis [J32.9 (ICD-10-CM)] TECHNIQUE: CT of the paranasal sinuses was performed using the sinus protocol without contrast. COMPARISON: CT sinus dated 12/20/2022. FINDINGS: The frontal sinuses are normal. The ethmoid sinuses are normal. Hyperostosis with peripheral mucosal thickening at the left maxillary sinus. The sphenoid sinuses are normal. The right ostiomeatal unit is completely opacified. The sphenoethmoidal recesses are open bilaterally. The nasal septum is an osseous spur. No areas of bony erosion are identified. The orbits are normal. Limited view of the frontal lobes is normal. Multiple dental caries. Advanced degenerative change of the atlantoaxial joint. A fibro-osseous lesion located superior to the anterior ethmoid air cells is identified measuring up to 1.5 cm in size. Degenerative changes of the bilateral temporomandibular joints. There is Keros type 3 olfactory fossa. There are air cells above the bilateral ethmoidal artery recesses. Procedure Note Jazz Pagan MD - 01/26/2025 EXAMINATION: CT of the paranasal sinuses without contrast HISTORY: Sinusitis, chronic or recurrent Dx: CVID (common variable immunodeficiency) [D83.9 (ICD-10-CM)]; Recurrent sinusitis [J32.9 (ICD-10-CM)] TECHNIQUE: CT of the paranasal sinuses was performed using the sinus protocol without contrast. COMPARISON: CT sinus dated 12/20/2022. FINDINGS: The frontal sinuses are normal. The ethmoid sinuses are normal. Hyperostosis with peripheral mucosal thickening at the left maxillary sinus. The sphenoid sinuses are normal. The right ostiomeatal unit is completely opacified. The sphenoethmoidal recesses are open bilaterally. The nasal septum is an osseous spur. No areas of bony erosion are identified. The orbits are normal. Limited view of the frontal lobes is normal. Multiple dental caries. Advanced degenerative change of the atlantoaxial joint. A fibro-osseous lesion located superior to the anterior ethmoid air cells is identified measuring up to 1.5 cm in size. Degenerative changes of the bilateral temporomandibular joints. There is Keros type 3 olfactory fossa. There are air cells above the bilateral ethmoidal artery recesses. IMPRESSION: Chronic left maxillary sinusitis. Otherwise interval improvement of previously described left-sided predominant paranasal mucosal thickening. Electronically signed by: Jazz Estrella M.D. us Araseli Wilson MD IMG CT PROCEDURES Final Res ult * (ABNORMAL) Lymphocyte proliferation to mitogens (01/26/2025 1:58 PM STAFFING COORDINATOR) Viability of lymphocytes at day 0 79.6 >=75.0 % [place] ref Lab Max Prolif of PWM as %CD45 19.0 >=4.5 % [facility] Max Prolif of PWM as %CD3 15.0 >=3.5 % [facility] Max Prolif of PWM as %CD19 18.2 >=3.9 % [facility] Max Prolif of PHA as %CD45 19.4(L) >=49.9 % [facility] Max Prolif of PHA as %CD3 22.4(L) >=58.5 % [facility] Lymph prolif mitogen, interp See Footnote [facility] Comment: Significantly decreased CD45+ total lymphocyte and CD3+ T cell proliferative responses to PHA. Normal lymphocyte proliferative response to PWM. There is no linear correlation between reduced proliferative responses and the magnitude of immune compromise. Clinical correlation recommended along with other immunological parameters to determine significance of the observed decreases in proliferative response to PHA. Reviewed by: Sosa Goldstein M.D., D. Ludwig., D([facility]) ADDITIONAL INFORMATION Reference values implemented March 22, 2010. Data are expressed as % proliferating cells of total specific cell population. The % Day 0 viability of the sample was determined using a flow cytometry assay which includes individual assessment of viable, apoptotic and cells. This method differs from the commonly used method of trypan blue dye exclusion which only identifies cells, and counts apoptotic cells along with the viable cells, resulting in an apparent higher cell viability. However, apoptotic cells do not contribute to cell proliferation and therefore accurate measurement of only viable cells provides meaningful information on the cells involved in stimulation and proliferative response. Strongly recommend using critical ambient shipping boxes available through [facility] ([facility]) inventory to ensure optimal transport of critical samples used for functional cellular assays. This test was developed using an analyte specific reagent. Its performance characteristics were determined by [facility] in a manner consistent with CLIA requirements. This test has not been cleared or approved by the U.S. Food and Drug Administration. Blood 01/26/2025 1:58 PM STAFFING COORDINATOR 01/26/2025 4:42 PM STAFFING COORDINATOR Adithya Ferrari MD LAB BLOOD ORDERABLES Final Res ult TERRIE [facility] [place] [address] [place] ref [facility] * Miscellaneous Test Sendout Chemistry (01/26/2025 1:58 PM STAFFING COORDINATOR) Test name Additional Flow Stimulant Result 1 Specimen Type: Blood Supplemental Comments: Additional Procedure [facility] Blood 01/26/2025 1:58 PM STAFFING COORDINATOR 01/26/2025 4:42 PM STAFFING COORDINATOR Adithya Ferrari MD LAB BLOOD ORDERABLES Final Res ult TERRIE [facility] [place] [address] * (ABNORMAL) BLOOD MISC TO [place] (01/26/2025 1:54 PM STAFFING COORDINATOR) Test name, chem LPAGF Lymphocyte Proliferation , Antigens [place] ref [facility] Misc See Footnote(A) TERRIE [place] Comment: Test Result Flag Unit RefValue Lymphocyte Proliferation, Antigens Interpretation See Footnote Essentially normal proliferative responses to Zach (CA), but decreased proliferative responses to Tetanus toxoid (TT). The decreased proliferative response to TT is unusual if vaccinated as per standard protocol. This result may reflect either a rapidly waning memory T cell response to TT or an inability to mount a T cell recall response to TT. Recommend re-vaccinating with TT if clinically appropriate and re-assess proliferative responses in 4-6 weeks. Clinical correlation recommended along with other immunological parameters to determine significance of decreased proliferative responses to TT. Reviewed by: Zeke Godfrey M.D. A portion of testing was performed at [facility] (CLIA #[id number]), [address] [place] [address]. ADDITIONAL INFORMATION Reference values implemented March 22, 2010. Data are expressed as % proliferating cells of total specific cell population. The % Day 0 viability of the sample was determined using a flow cytometry assay which includes individual assessment of viable, apoptotic and cells. This method differs from the commonly used method of trypan blue dye exclusion which only identifies cells, and counts apoptotic cells along with the viable cells, resulting in an apparent higher cell viability. However, apoptotic cells do not contribute to cell proliferation and therefore accurate measurement of only viable cells provides meaningful information on the cells involved in stimulation and proliferative response. Strongly recommend using critical ambient shipping boxes available through [facility] ([facility]) inventory to ensure optimal transport of critical samples used for functional cellular assays. This test was developed using an analyte specific reagent. Its performance characteristics were determined by [facility] in a manner consistent with CLIA requirements. This test has not been cleared or approved by the U.S. Food and Drug Administration. Viab of Lymphs at Day 0 79.6 % >=75.0 Max Prolif of CA as % CD45 4.2 L % >=5.7 Max Prolif of CA as % CD3 3.4 % >=3.0 Max Prolif of TT as % CD45 0.0 L % >=5.2 Max Prolif of TT as % CD3 0.0 L % >=3.3 Antigen Comment See Footnote Lymphocyte proliferative responses are affected by sample age. Samples received between 24-48 hours post-collection can show significant decrease in lymphocyte proliferative responses. Caution should be used when interpreting the results and clinical correlation is strongly recommended. Suggest repeat testing when clinically appropriate. Mononuclear cell preparation contains excess neutrophils. Consider repeating this test if clinically indicated. Test Performed by: [place] [address] Tobacco Blender: Jacky Thurman Ph.D.; CLIA# [id number] Blood 01/26/2025 1:54 PM STAFFING COORDINATOR 01/26/2025 4:42 PM STAFFING COORDINATOR Adithya Ferrari MD LAB BLOOD ORDERABLES Final Res ult Performing Organization Address City/[facility]/ZIP Co de Phone Number [facility] [place] [address] [place] ref [facility] * Miscellaneous Test Sendout Chemistry (01/26/2025 1:54 PM STAFFING COORDINATOR) Test name Additional Flow Stimulant Result 1 Specimen Type: blood Supplemental Comments: Additional Procedure [facility] Blood 01/26/2025 1:54 PM STAFFING COORDINATOR 02/05/2025 8:18 AM STAFFING COORDINATOR us Adithya Ferrari MD LAB BLOOD ORDERABLES Final Res ult TERRIE [facility] [place] [address] * (ABNORMAL) BLOOD MISC TO [place] (01/22/2025 1:20 PM STAFFING COORDINATOR) Test name, chem CYPAN,CYT OKINE PANEL,PAYTON SMA [place] ref [facility] Mis See Footnote( A) TERRIE [place] Comment: Test Result Flag Unit RefValue Cytokine Panel, P TNF 45.2 H pg/mL <10.0 IL-6 7.1 H pg/mL <5.0 IFN-beta <20.0 pg/mL <20.0 IL-10 <7.0 pg/mL <7.0 MCP-1 137 pg/mL <=198 IL-1 beta <20.0 pg/mL <20.0 IFN-gamma <60.0 pg/mL <60.0 MIP-1 alpha See Footnote pg/mL <220 RESULT: Unable to perform test due to a reagent issue. GM-CSF <15.0 pg/mL <15.0 IL-2 receptor alpha 2068 H pg/mL <=959 soluble IFN-alpha <20.0 pg/mL <20.0 IL-18 2437 H pg/mL <=468 ADDITIONAL INFORMATION This test was developed and its performance characteristics determined by [facility] in a manner consistent with CLIA requirements. This test has not been cleared or approved by the U.S. Food and Drug Administration. Test Performed by: [facility] [id number] [place] [address] Tobacco Blender: Jacky Thurman Ph.D.; CLIA# [id number] Blood 01/22/2025 1:20 PM STAFFING COORDINATOR 01/22/2025 3:43 PM STAFFING COORDINATOR us Adithya Ferrari MD LAB BLOOD ORDERABLES Final Res ult [facility]RIE [place] Department [place] [address] [place] ref [facility] * BLOOD MISC TO [place] (01/22/2025 1:20 PM STAFFING COORDINATOR) Test name, chem SIL2R,INTERL EUKIN-2 RECEPTOR ALPHA SOLUBLE [place] ref [facility] Misc see comment [facility] Comment:Credited, test not i ndicated. Blood 01/22/2025 1:20 PM STAFFING COORDINATOR 01/25/2025 2:48 PM STAFFING COORDINATOR us Adithya Ferrari MD LAB BLOOD ORDERABLES Final Res ult TERRIE [place] [facility] Department [place] [address] [place] ref [facility] * Differential, auto (01/22/2025 1:20 PM STAFFING COORDINATOR) Pathologist [facility] Neutrophil abs 3.46 1.50 - 6.50 K/cumm Imm gran abs 0.02 0.00 - 0.10 K/cumm [facility] Lymphocyte abs 1.45 0.80 - 3.30 K/cumm [facility] Monocyte abs 0.32 0.20 - 0.80 K/cumm [facility] Eosinophil abs 0.00 0.00 - 0.50 K/cumm [facility] Basophil abs 0.01 0.00 - 0.10 K/cumm [facility] Neutrophil pct 65.7 % [facility] Comment: Interpretive Data Percent cell count reference ranges are not reported, since discordance with absolute values may lead to misinterpretation of CBC data. Current Interpretive Data was last revised on 2017. Imm gran pct 0.4 % [facility] Comment: Interpretive Data Percent cell count reference ranges are not reported, since discordance with absolute values may lead to misinterpretation of CBC data. Current Interpretive Data was last revised on 2017. Lymphocyte pct 27.6 % [facility] Comment: Interpretive Data Percent cell count reference ranges are not reported, since discordance with absolute values may lead to misinterpretation of CBC data. Current Interpretive Data was last revised on 2017. Monocyte pct 6.1 % [facility] Comment: Interpretive Data Percent cell count reference ranges are not reported, since discordance with absolute values may lead to misinterpretation of CBC data. Current Interpretive Data was last revised on 2017. Eosinophil pct 0.0 % [facility] Comment: Interpretive Data Percent cell count reference ranges are not reported, since discordance with absolute values may lead to misinterpretation of CBC data. Current Interpretive Data was last revised on 2017. Basophil pct 0.2 % [facility] Comment: Interpretive Data Percent cell count reference ranges are not reported, since discordance with absolute values may lead to misinterpretation of CBC data. Current Interpretive Data was last revised on 2017. Blood 01/22/2025 1:20 PM STAFFING COORDINATOR 01/22/2025 2:29 PM STAFFING COORDINATOR us Adithya Ferrari MD LAB BLOOD ORDERABLES Final Res ult [facility] Department [place] [address] * (ABNORMAL) Immune competence (01/22/2025 1:20 PM STAFFING COORDINATOR) CD3 pct 90(H) 60 - 88 % CD3 Absolute 1,419 661 - 1,963 cells/mcL [facility] CD4 pct 13(L) 31 - 64 % [facility] CD4 Absolute 204(L) 365 - 1,294 cells/mcL [facility] CD8 pct 77(H) 12 - 40 % [facility] CD8 Absolute 1,207(H) 187 - 781 cells/mcL [facility] CD19 pct 3(L) 6 - 25 % [facility] CD19 Absolute 41(L) 86 - 488 cells/mcL [facility] [id number] pct 6 5 - 25 % [facility] [id number] Absolute 94 76 - 467 cells/mcL [facility] CD4/CD8 ratio 0.2(L) 0.9 - 4.4 [facility] Blood 01/22/2025 1:20 PM STAFFING COORDINATOR 01/22/2025 2:29 PM STAFFING COORDINATOR Adithya Ferrari MD LAB BLOOD ORDERABLES Final Res ult [facility] Department [place] [address] * (ABNORMAL) CBC with auto differential (01/22/2025 1:20 PM STAFFING COORDINATOR) [facility] [address] WBC 5.26 3.80 - 9.90 K/cumm Hgb 8.7(L) 11.9 - 15.5 g/dL [facility] Hct 26.0(L) 35.6 - 45.5 % [facility] Plt 133(L) 150 - 400 K/cumm [facility] MPV Not Measured 9.1 - 12.3 fL [facility] RBC 3.58(L) 3.90 - 5.20 M/cumm [facility] MCV 72.6(L) 81.3 - 96.4 fL [facility] MCH 24.3(L) 27.1 - 33.3 pg [facility] MCHC 33.5 32.3 - 35.7 g/dL [facility] RDW CV 21.5(H) 11.1 - 14.9 % [facility] RDW SD 55.7(H) 35.7 - 48.1 fL [facility] NRBC abs 0.00 0.00 - 0.01 K/cumm [facility] Blood 01/22/2025 1:20 PM STAFFING COORDINATOR 01/22/2025 2:29 PM STAFFING COORDINATOR Adithya Ferrari MD LAB BLOOD ORDERABLES Final Res ult [facility] [place] [address] * Miscellaneous Test Sendout Chemistry (01/22/2025 1:13 PM STAFFING COORDINATOR) [facility] [address] Test name CXCL9 Result 1 Specimen Type: EDTA Plasma Result: See scanned result in Medical Record. [facility] Blood 01/22/2025 1:13 PM STAFFING COORDINATOR 01/22/2025 3:10 PM STAFFING COORDINATOR us Kim Lee MD LAB BLOOD ORDERABLES Final Result [facility] Department [place] [address] * Strep pneumoniae antibody serotypes (01/22/2025 1:13 PM STAFFING COORDINATOR) Pathologist [facility] S. pneumo Type 1 (1) 1.0 >=1.0 mcg/mL [facility] S. pneumo Type 2 (2) 1.7 >=1.0 mcg/mL [facility] S. pneumo Type 3 (3) 0.3 >=1.0 mcg/mL [facility] S. pneumo Type 4 (4) 0.5 >=1.0 mcg/mL [facility] S. pneumo Type 5 (5) 0.6 >=1.0 mcg/mL [facility] S. pneumo Type 8 (8) 2.1 >=1.0 mcg/mL [facility] S. pneumo Type 9N (9) 0.9 >=1.0 mcg/mL [facility] S. pneumo Type 12F (12) 0.7 >=1.0 mcg/mL [facility] S. pneumo Type 14 (14) 2.9 >=1.0 mcg/mL [facility] S. pneumo Type 17F (17) 1.6 >=1.0 mcg/mL [facility] S. pneumo Type 19F (19) 3.5 >=1.0 mcg/mL [facility] S. pneumo Type 20 (20) 3.4 >=1.0 mcg/mL [facility] S. pneumo Type 22F (22) 2.0 >=1.0 mcg/mL [facility] S. pneumo Type 23F (23) 1.4 >=1.0 mcg/mL [facility] S. pneumo Type 6B (26) 0.9 >=1.0 mcg/mL [facility] S. pneumo Type 10A (34) 2.0 >=1.0 mcg/mL [facility] S. pneumo Type 11A (43) 1.0 >=1.0 mcg/mL [facility] S. pneumo Type 7F (51) 1.2 >=1.0 mcg/mL [facility] S. pneumo Type 15B (54) 3.0 >=1.0 mcg/mL [facility] S. pneumo Type 18C (56) 0.8 >=1.0 mcg/mL [facility] S. pneumo Type 19A (57) 3.1 >=1.0 mcg/mL [facility] S. pneumo Type 9V (68) 0.6 >=1.0 mcg/mL [facility] S. pneumo Type 33F (70) 3.4 >=1.0 mcg/mL [facility] Pneum Ab 23 interp See Footnote TERRIE [place] Comment: Evaluation of the immune response following pneumococcal vaccination can be assessed by measuring serotype-specific Streptococcus pneumonia IgG antibodies. Either of the following conditions is consistent with a normal response to Streptococcus pneumonia vaccination: 1. When comparing pre and post-vaccination samples, antibody concentrations increased by at least 2-fold for either >50% of serotypes in children <6 years of age or >70% of serotypes for individuals >6 years of age. 2. In either a pre- or post-vaccination sample, antibody concentrations >=1.0 mcg/mL for either >50% of serotypes for children <6 years of age or >70% of serotypes for individuals >6 years of age. Results >=1.0 mcg/mL or those showing a >=2-fold change are consistent with an immune response, but are not necessarily sufficient to provide protection against infection. ADDITIONAL INFORMATION This test was developed and its performance characteristics determined by [facility] in a manner consistent with CLIA requirements. This test has not been cleared or approved by the U.S. Food and Drug Administration. Test Performed by: [facility] - [address] [address] Tobacco Blender: Jacky Thurman Ph.D.; CLIA# [id number] Blood 01/22/2025 1:13 PM STAFFING COORDINATOR 01/22/2025 3:00 PM STAFFING COORDINATOR us Adithya Ferrari MD LAB BLOOD ORDERABLES Final Res ult Performing Organization Address City/[facility]/ZIP Co de Phone Number TERRIE [facility] Department [place] [address] [place] ref Lab * SCAN - LABS (01/22/2025) us Provider Scanning Final Result * eGFR (01/21/2025 9:38 AM STAFFING COORDINATOR) eGFR 74 >=60 mL/min/1. 73 m2 Comment: Interpretive Data Reference Interval Normal >/= 90 mL/min/1.73m2 Mildly decreased* 60 - 89 mL/min/1.73m2 Mildly to moderately decreased 45 - 59 mL/min/1.73m2 Moderately to severely decreased 30 - 44 mL/min/1.73m2 Severely decreased 15 - 29 mL/min/1.73m2 Kidney Failure < 15 mL/min/1.73m2 *Relative to young adult level Estimated glomerular filtration rate is determined by the 2020 CKD-EPI equation recommended by the National Kidney Foundation (A Unifying Approach to GFR Estimation: Recommendations of the NKF-ASK Task Force on Reassessing the Inclusion of Race in Diagnosing Kidney Disease, JASN 2020). The CKD-EPI equation should not be used for patients with unstable renal function and has not been validated in children and those over 70. Current interpretive data was last reviewed 2021. Blood 01/21/2025 9:38 AM STAFFING COORDINATOR 01/21/2025 9:50 AM STAFFING COORDINATOR us Gena Godfrey MD LAB BLOOD ORDERABLES Final Res ult TERRIE [place] [facility] Department [place] [address] * (ABNORMAL) Differential, auto (01/21/2025 9:38 AM STAFFING COORDINATOR) Neutrophil abs 2.88 1.50 - 6.50 K/cumm Imm gran abs 0.02 0.00 - 0.10 K/cumm [facility] Lymphocyte abs 3.55(H) 0.80 - 3.30 K/cumm [facility] Monocyte abs 0.33 0.20 - 0.80 K/cumm [facility] Eosinophil abs 0.00 0.00 - 0.50 K/cumm [facility] Basophil abs 0.02 0.00 - 0.10 K/cumm [facility] Neutrophil pct 42.3 % [facility] Comment: Interpretive Data Percent cell count reference ranges are not reported, since discordance with absolute values may lead to misinterpretation of CBC data. Current Interpretive Data was last revised on 2017. Imm gran pct 0.3 % [facility] Comment: Interpretive Data Percent cell count reference ranges are not reported, since discordance with absolute values may lead to misinterpretation of CBC data. Current Interpretive Data was last revised on 2017. Lymphocyte pct 52.2 % [facility] Comment: Interpretive Data Percent cell count reference ranges are not reported, since discordance with absolute values may lead to misinterpretation of CBC data. Current Interpretive Data was last revised on 2017. Monocyte pct 4.9 % [facility] Comment: Interpretive Data Percent cell count reference ranges are not reported, since discordance with absolute values may lead to misinterpretation of CBC data. Current Interpretive Data was last revised on 2017. Eosinophil pct 0.0 % [facility] Comment: Interpretive Data Percent cell count reference ranges are not reported, since discordance with absolute values may lead to misinterpretation of CBC data. Current Interpretive Data was last revised on 2017. Basophil pct 0.3 % [facility] Comment: Interpretive Data Percent cell count reference ranges are not reported, since discordance with absolute values may lead to misinterpretation of CBC data. Current Interpretive Data was last revised on 2017. Blood 01/21/2025 9:38 AM STAFFING COORDINATOR 01/21/2025 9:50 AM STAFFING COORDINATOR Gena Godfrey MD LAB BLOOD ORDERABLES Final Res ult Performing Organization Address City/[facility] Co de Phone Number [facility] Department [place] [address] * (ABNORMAL) CBC with auto differential (01/21/2025 9:38 AM STAFFING COORDINATOR) Pathologist [facility] WBC 6.80 3.80 - 9.90 K/cumm Hgb 8.8(L) 11.9 - 15.5 g/dL [facility] Hct 27.2(L) 35.6 - 45.5 % [facility] Plt 127(L) 150 - 400 K/cumm [facility] MPV Not Measured 9.1 - 12.3 fL [facility] RBC 3.66(L) 3.90 - 5.20 M/cumm [facility] MCV 74.3(L) 81.3 - 96.4 fL [facility] MCH 24.0(L) 27.1 - 33.3 pg [facility] MCHC 32.4 32.3 - 35.7 g/dL [facility] RDW CV 21.2(H) 11.1 - 14.9 % [facility] RDW SD 55.9(H) 35.7 - 48.1 fL [facility] NRBC abs 0.00 0.00 - 0.01 K/cumm [facility] Blood 01/21/2025 9:38 AM STAFFING COORDINATOR 01/21/2025 9:50 AM STAFFING COORDINATOR us Gena Godfrey MD LAB BLOOD ORDERABLES Final Res ult Performing Organization Address City/[facility]/ZIP Co de Phone Number [facility] Department [place] [address] * (ABNORMAL) Comprehensive metabolic panel (01/21/2025 9:38 AM STAFFING COORDINATOR) Sodium 135 135 - 145 mmol/L Potassium, pl 4.2 3.3 - 4.9 mmol/L [facility] Comment:Hemolyzed; Potassium value may be falsely elevated by as much as 0.3-0.5 mmol/L. Suggest redraw and reanalysis. Chloride 105 97 - 110 mmol/L [facility] CO2 19(L) 22 - 32 mmol/L [facility] Anion gap 11 2 - 15 mmol/L [facility] BUN 20 6 - 25 mg/dL [facility] Creatinine 0.98 0.60 - 1.10 mg/dL [facility] Glucose 106 70 - 199 mg/dL [facility] Comment: Interpretive Data Fasting glucose >/= 126 mg/dl is diagnostic for diabetes. Fasting is defined as no caloric intake for at least 8 hours. Fasting glucose between 100 mg/dl to 125 mg/dl is diagnostic of prediabetes. In a patient with classic symptoms of hyperglycemia or hyperglycemic crisis, a random glucose >/= 200 mg/dl is diagnostic for diabetes. In the absence of unequivocal hyperglycemia, results should be confirmed by repeat testing. The classification and Diagnosis of Diabetes Diabetes Care 2021; 46: S19-S40. Current interpretive data was last revised 2022. Calcium 8.5 8.5 - 10.3 mg/dL [facility] Bilirubin, total 7.5(H) 0.1 - 1.2 mg/dL [facility] Protein, pl 5.8(L) 6.5 - 8.5 g/dL [facility] Albumin 2.6(L) 3.5 - 5.0 g/dL [facility] Alk phos 261(H) 40 - 130 Units/L [facility] ALT 28 7 - 45 Units/L [facility] AST 57(H) 10 - 45 Units/L [facility] Comment:Hemolyzed; result ma y be falsely elevated Blood 01/21/2025 9:38 AM STAFFING COORDINATOR 01/21/2025 9:50 AM STAFFING COORDINATOR us Gena Godfrey MD LAB BLOOD ORDERABLES Final Res ult [facility] Department [place] [address] * Infection Prevention Zach auris PCR, surveillance Axilla/Groin (01/20/2025 11:06 AM STAFFING COORDINATOR) Zach auris DNA Not Detected Not Detected [facility] Comment: Interpretive Data Testing performed by [facility] using the Ishmael taylor [id number] Zach auris assay. This assay detects DNA from Zach auris using Real-Time PCR. This assay is laboratory developed and is not cleared by the [place] Food and Drug Administration. The performance characteristics have been verified by the [facility]. Axilla/Groin 01/20/2025 11:0 6 AM STAFFING COORDINATOR 01/20/2025 11:32 AM STAFFING COORDINATOR Narrative TERRIE [facility] - 01/21/2025 1:38 PM STAFFING COORDINATOR Order placed by [facility] due to ring surveillance. us Instant Order Generic Provider LAB MICROBIOLOGY - GENERAL ORDERABLES Final Result [facility] Department [place] [address] [facility] * eGFR (01/20/2025 6:18 AM STAFFING COORDINATOR) eGFR 70 >=60 mL/min/1. 73 m2 Comment: Interpretive Data Reference Interval Normal >/= 90 mL/min/1.73m2 Mildly decreased* 60 - 89 mL/min/1.73m2 Mildly to moderately decreased 45 - 59 mL/min/1.73m2 Moderately to severely decreased 30 - 44 mL/min/1.73m2 Severely decreased 15 - 29 mL/min/1.73m2 Kidney Failure < 15 mL/min/1.73m2 *Relative to young adult level Estimated glomerular filtration rate is determined by the 2020 CKD-EPI equation recommended by the National Kidney Foundation (A Unifying Approach to GFR Estimation: Recommendations of the NKF-ASK Task Force on Reassessing the Inclusion of Race in Diagnosing Kidney Disease, JASN 2020). The CKD-EPI equation should not be used for patients with unstable renal function and has not been validated in children and those over 70. Current interpretive data was last reviewed 2021. Blood 01/20/2025 6:18 AM STAFFING COORDINATOR 01/20/2025 6:28 AM STAFFING COORDINATOR Anyi Becker MANAGER BEAUTY LAB BLOOD ORDERABLES Final Result Performing Organization Address [facility] [facility] de Phone Number [facility] [place] [address] * Phosphorus (01/20/2025 6:18 AM STAFFING COORDINATOR) [facility] [address] Phosphorus, pl 3.5 2.3 - 4.5 mg/dL Blood 01/20/2025 6:18 AM STAFFING COORDINATOR 01/20/2025 6:28 AM STAFFING COORDINATOR Anyi Becker MANAGER BEAUTY LAB BLOOD ORDERABLES Final Result Performing Organization Address [facility] de Phone Number [facility] [place] [address] * Magnesium (01/20/2025 6:18 AM STAFFING COORDINATOR) [facility] [address] Magnesium 1.9 1.4 - 2.5 mg/dL Blood 01/20/2025 6:18 AM STAFFING COORDINATOR 01/20/2025 6:28 AM STAFFING COORDINATOR Anyi Becker NP LAB BLOOD ORDERABLES Final Result Performing Organization Address [facility] de Phone Number [facility] [place] [address] * (ABNORMAL) Basic metabolic panel (01/20/2025 6:18 AM STAFFING COORDINATOR) [facility] [address] Sodium 136 135 - 145 mmol/L Potassium, pl 4.0 3.3 - 4.9 mmol/L [facility] Chloride 105 97 - 110 mmol/L [facility] CO2 20(L) 22 - 32 mmol/L [facility] Anion gap 11 2 - 15 mmol/L [facility] BUN 21 6 - 25 mg/dL [facility] Creatinine 1.03 0.60 - 1.10 mg/dL [facility] Glucose 96 70 - 199 mg/dL [facility] Comment: Interpretive Data Fasting glucose >/= 126 mg/dl is diagnostic for diabetes. Fasting is defined as no caloric intake for at least 8 hours. Fasting glucose between 100 mg/dl to 125 mg/dl is diagnostic of prediabetes. In a patient with classic symptoms of hyperglycemia or hyperglycemic crisis, a random glucose >/= 200 mg/dl is diagnostic for diabetes. In the absence of unequivocal hyperglycemia, results should be confirmed by repeat testing. The classification and Diagnosis of Diabetes Diabetes Care 2021; 46: S19-S40. Current interpretive data was last revised 2022. Calcium 8.9 8.5 - 10.3 mg/dL [facility] Blood 01/20/2025 6:18 AM STAFFING COORDINATOR 01/20/2025 6:28 AM STAFFING COORDINATOR Anyi Becker NP LAB BLOOD ORDERABLES Final Result Performing Organization Address [facility] de Phone Number [facility] Department [place] [address] * (ABNORMAL) Troponin I high-sensitivity series (baseline, 2hr, 4hr, 6hr) (01/19/2025 11:59 AM STAFFING COORDINATOR) Trop I hs 185(H) <=17 ng/L Comment: Interpretive Data For further [facility] resources including the diagnostic algorithm and an aid in interpretation, copy and paste this link: [email or web address].testcatalog.org/show/hsTrop-[email or web address] Current Interpretive Data last revised 2019. Blood 01/19/2025 11:5 9 AM STAFFING COORDINATOR 01/19/2025 1:39 PM STAFFING COORDINATOR Anyi Becker NP LAB BLOOD ORDERABLES Final Result Performing Organization Address [facility] Co de Phone Number [facility] Department [place] [address] * (ABNORMAL) Urinalysis reflex to microscopic and culture Urine (01/19/2025 10:34 AM STAFFING COORDINATOR) Color, ur Yellow Yellow Clarity, ur Cloudy(A) Clear [facility] Specific gravity, ur 1.019 1.003 - 1.030 [facility] pH, urine 6.0 [facility] Comment: Interpretive Data U rine pH is affected by diet, medications, systemic acid-base disturbances, and renal tubular function. pH may affect urinary stone formation. For example, urine pH below 6.0 may help reduce the tendency for calcium phosphate stones and pH greater than 6.0 may reduce the tendency for uric acid stone formation. Source: [facility] [employer] Current Interpretive Data was last revised on 2017 Protein, ur ql Negative Negative [facility] Glucose, ur ql Negative Negative [facility] Ketones, ur Negative Negative [facility] Bilirubin, ur 1+(A) Negative [facility] Blood, ur 2+(A) Negative [facility] Urobilinogen, ur 2.0(A) <2.0 mg/dL [facility] Nitrite, ur Negative Negative [facility] Leukocyte esterase, ur 1+(A) Negative [facility] UA reflex comment Reflex to microscopic UA will be performed. [facility] Urine 01/19/2025 10:3 4 AM STAFFING COORDINATOR 01/19/2025 10:46 AM STAFFING COORDINATOR Florencia Thomas MD LAB MICROBIOLOGY - NERAL ORDERABLES Final Result [facility] Department [place] [address] * (ABNORMAL) Urinalysis, microscopic only (01/19/2025 10:34 AM STAFFING COORDINATOR) WBC, ur 6-10(A) 0 - 5 /HPF RBC, ur 0-2 0 - 2 /HPF [facility] Epithelial cells, squamous, ur 6-10(A) 0 - 5 /HPF [facility] Comment:Suggestive of contam ination. Consider recollection by clean catch. Bacteria, ur 1+(A) [facility] Mucous, ur Present(A) [facility] Hyaline casts, ur 1-5 0 - 10 /LPF [facility] Culture Reflex Comment Reflex conditions for urine culture (WBC >10) not met. [facility] Urine 01/19/2025 10:3 4 AM STAFFING COORDINATOR 01/19/2025 10:46 AM STAFFING COORDINATOR Florencia Thomas MD LAB URINE ORDERABLES Final Result Performing Organization Address City/[facility] Co de Phone Number [facility] Department [place] [address] * (ABNORMAL) Troponin I high-sensitivity 6-hour (01/19/2025 9:58 AM STAFFING COORDINATOR) Trop I hs 197(H) <=17 ng/L Comment: Interpretive Data For further hscTnI resources including the diagnostic algorithm and an aid in interpretation, copy and paste this link: https://bjhlab.testcatalog.org/show/hsTrop-1 Current Interpretive Data last revised 2019. Trop I hs pct delta 35(C) % [facility] Trop I hs interp Significa nt(C) [facility] Blood 01/19/2025 9:58 AM STAFFING COORDINATOR 01/19/2025 10:24 AM STAFFING COORDINATOR Florencia Thomas MD LAB BLOOD ORDERABLES Final Result Performing Organization Address City/[facility] Co de Phone Number [facility] Department [place] [address] * Critical result callback Cardio chemistry (01/19/2025 9:58 AM STAFFING COORDINATOR) Date Notified [id number] Time Notified 1108 [facility] Test name Trop I hs 6hr [facility] Called/Read Back Paige Greenwood [facility] Credentials [facility] Called By tmp [facility] Blood 01/19/2025 9:58 AM STAFFING COORDINATOR 01/19/2025 10:24 AM STAFFING COORDINATOR Florencia Thomas MD LAB BLOOD ORDERABLES Final Result Performing Organization Address [facility] de Phone Number [facility] Department [place] [address] * (ABNORMAL) Troponin I high-sensitivity 4-hour (01/19/2025 8:08 AM STAFFING COORDINATOR) Trop I hs 156(H) <=17 ng/L Comment: Interpretive Data For further hscTnI resources including the diagnostic algorithm and an aid in interpretation, copy and paste this link: https://bjhlab.testcatalog.org/show/hsTrop-1 Current Interpretive Data last revised 2019. Trop I hs pct delta 7 % [facility] Trop I hs interp Equivocal [facility] Blood 01/19/2025 8:08 AM STAFFING COORDINATOR 01/19/2025 8:36 AM STAFFING COORDINATOR Florencia Thomas MD LAB BLOOD ORDERABLES Final Result Performing Organization Address [facility] de Phone Number [facility] Department [place] [address] * (ABNORMAL) ECG 12-LEAD (01/19/2025 7:16 AM STAFFING COORDINATOR) Narrative [facility] - 01/19/2025 7:16 AM STAFFING COORDINATOR Florencia Thomas MD 01/19/2025 7:17 AM ECG 12 lead Date/Time: 01/19/2025 7:16 AM Performed by: Florencia Thomas MD Authorized by: Dudley Pettit MD Rate: ECG rate: 118 ECG rate assessment: normal Rhythm: Rhythm: atrial flutter Rhythm comment: Vs junctional w narrow ventricular complexes Ectopy: Ectopy: none QRS: QRS axis: Normal QRS intervals: Normal Conduction: Conduction: normal ST segments: ST segments: Normal T waves: T waves: normal Previous ECG: Previous ECG: Unavailable Interpretation: Interpretation: abnormal Recommended Follow-up: Recommended follow up: further workup in the ED Procedure Note Florencia Thomas MD - 01/19/2025 7:16 AM CST Procedure ECG 12 lead Date/Time: 01/19/2025 7:16 AM Performed by: Florencia Thomas MD Authorized by: Dudley Pettit MD Rate: ECG rate: 118 ECG rate assessment: normal Rhythm: Rhythm: atrial flutter Rhythm comment: Vs junctional w narrow ventricular complexes Ectopy: Ectopy: none QRS: QRS axis: Normal QRS intervals: Normal Conduction: Conduction: normal ST segments: ST segments: Normal T waves: T waves: normal Previous ECG: Previous ECG: Unavailable Interpretation: Interpretation: abnormal Recommended Follow-up: Recommended follow up: further workup in the ED Florencia Thomas MD 01/19/25 0717 Dudley Pettit MD ECG ORDERABLES Edit ed Result - Final [facility] * ECG 12-LEAD (01/19/2025 7:02 AM STAFFING COORDINATOR) Narrative [facility] - 01/19/2025 7:02 AM STAFFING COORDINATOR Asim Lemus MD 01/19/2025 7:02 AM ECG 12 lead Date/Time: 01/19/2025 7:02 AM Performed by: Asim Lemus MD Authorized by: Florencia Thomas MD Comments: Repeat EKG obtained for suspected conversion to sinus rhythm. Compared to prior from earlier in the day. Sinus rhythm with a ventricular rate of 73 with normal axis, narrow complex QRS with a normal intervals and no acute ischemia. Procedure Note Asim Lemus MD - 01/19/2025 7:02 AM CST Procedure ECG 12 lead Date/Time: 01/19/2025 7:02 AM Performed by: Asim Lemus MD Authorized by: Florencia Thomas MD Comments: Repeat EKG obtained for suspected conversion to sinus rhythm. Comparedto prior from earlier in the day. Sinus rhythm with a ventricular rate of73 with normal axis, narrow complex QRS with a normal intervals and noacute ischemia. Asim Lemus MD 01/19/25 0702 Florencia Thomas MD ECG ORDERABLES Edite d Result - Final Performing Organization Address [facility]/ZIP Co de Phone Number [facility] * (ABNORMAL) Troponin I high-sensitivity 2-hour (01/19/2025 5:50 AM STAFFING COORDINATOR) Trop I hs 156(H) <=17 ng/L Comment: Interpretive Data For further hscTnI resources including the diagnostic algorithm and an aid in interpretation, copy and paste this link: https://[email or web address] [email or web address]/show/hsTrop-[email or web address] Current Interpretive Data last revised 2019. Trop I hs pct delta 7 % [facility] Trop I hs interp Equivocal [facility] Blood 01/19/2025 5:50 AM STAFFING COORDINATOR 01/19/2025 6:04 AM STAFFING COORDINATOR Florencia Thomas MD LAB BLOOD ORDERABLES Final Result Performing Organization Address [facility] Co de Phone Number [facility] Department [place] [address] * (ABNORMAL) Troponin I high-sensitivity series (baseline, 2hr, 4hr, 6hr) (01/19/2025 4:03 AM STAFFING COORDINATOR) Trop I hs 146(H) <=17 ng/L Comment: Interpretive Data For further hscTnI resources including the diagnostic algorithm and an aid in interpretation, copy and paste this link: [email or web address] [email or web address] [email or web address]/show/hsTrop-[email or web address] Current Interpretive Data last revised 2019. Blood 01/19/2025 4:03 AM STAFFING COORDINATOR 01/19/2025 4:14 AM STAFFING COORDINATOR Florencia Thomas MD LAB BLOOD ORDERABLES Final Result [facility] Department [place] [address] * XR Chest 1 Vw Portable (01/19/2025 3:13 AM STAFFING COORDINATOR) Anatomical Region Laterality Modality Body, Chest N/A Digital Radiogra phy 01/19/2025 4:07 AM STAFFING COORDINATOR Impressions 01/19/2025 11:15 AM STAFFING COORDINATOR FINDINGS/IMPRESSION: Small lung volumes with atelectasis at the bases. No pleural effusion or pneumothorax. Cardiomediastinal silhouette is within normal limits. Dictated by: Satish Dozier MD The radiology attending physician has personally reviewed this study, and had reviewed and/or edited this written report and agrees with it. Electronically signed by: Misa Boyle M.D. Narrative 01/19/2025 11:15 AM STAFFING COORDINATOR EXAMINATION: XR CHEST 1 VIEW HISTORY: tachycardia COMPARISON: Radiograph from 09/15/2024 Procedure Note Misa Boyle MD - 01/19/2025 EXAMINATION: XR CHEST 1 VIEW HISTORY: tachycardia COMPARISON: Radiograph from 09/15/2024 IMPRESSION: FINDINGS/IMPRESSION: Small lung volumes with atelectasis at the bases. No pleural effusion or pneumothorax. Cardiomediastinal silhouette is within normal limits. Dictated by: Satish Dozier MD The radiology attending physician has personally reviewed this study, and had reviewed and/or edited this written report and agrees with it. Electronically signed by: Misa Boyle M.D. Florencia Thomas MD IMG XR PROCEDURES Fin al Result * ECG 12-LEAD (01/19/2025 2:46 AM STAFFING COORDINATOR) Narrative [facility] - 01/19/2025 2:46 AM STAFFING COORDINATOR Florencia Thomas MD 01/19/2025 2:47 AM ECG 12 lead Date/Time: 01/19/2025 2:46 AM Performed by: Florencia Thomas MD Authorized by: Florencia Thomas MD Rate: ECG rate: 133 ECG rate assessment: tachycardic Rhythm: Rhythm: sinus rhythm and atrial flutter Rhythm comment: Vs SVT Ectopy: Ectopy: none QRS: QRS axis: Normal QRS intervals: Normal Conduction: Conduction: normal ST segments: ST segments: Normal T waves: T waves: normal Previous ECG: Previous ECG: Unavailable Interpretation: Interpretation: non-specific Recommended Follow-up: Recommended follow up: further workup in the ED Florencia Thomas MD ECG ORDERABLES Final Result Performing Organization Address City/State/[facility] Co de Phone Number [facility] * (ABNORMAL) Troponin I high-sensitivity (01/19/2025 2:02 AM STAFFING COORDINATOR) Trop I hs 136(H) <=17 ng/L Comment: Interpretive Data For further hscTnI resources including the diagnostic algorithm and an aid in interpretation, copy and paste this link: https://bjhlab.testcatalog.org/show/hsTrop-1 Current Interpretive Data last revised 2019. Blood 01/19/2025 2:02 AM STAFFING COORDINATOR 01/19/2025 2:32 AM STAFFING COORDINATOR Florencia Thomas MD LAB BLOOD ORDERABLES Final Result Performing Organization Address [facility] Co de Phone Number [facility] Department [place] [address] * (ABNORMAL) eGFR (01/19/2025 2:02 AM STAFFING COORDINATOR) eGFR 57(L) >=60 mL/min/1. 73 m2 Comment: Interpretive Data Reference Interval Normal >/= 90 mL/min/1.73m2 Mildly decreased* 60 - 89 mL/min/1.73m2 Mildly to moderately decreased 45 - 59 mL/min/1.73m2 Moderately to severely decreased 30 - 44 mL/min/1.73m2 Severely decreased 15 - 29 mL/min/1.73m2 Kidney Failure < 15 mL/min/1.73m2 *Relative to young adult level Estimated glomerular filtration rate is determined by the 2020 CKD-EPI equation recommended by the National Kidney Foundation (A Unifying Approach to GFR Estimation: Recommendations of the NKF-ASK Task Force on Reassessing the Inclusion of Race in Diagnosing Kidney Disease, JASN 2020). The CKD-EPI equation should not be used for patients with unstable renal function and has not been validated in children and those over 70. Current interpretive data was last reviewed 2021. Blood 01/19/2025 2:02 AM STAFFING COORDINATOR 01/19/2025 2:33 AM STAFFING COORDINATOR Florencia Thomas MD LAB BLOOD ORDERABLES Final Result [facility] Department [place] [address] * (ABNORMAL) Differential, auto (01/19/2025 2:02 AM STAFFING COORDINATOR) Pathologist [facility] Neutrophil abs 3.99 1.50 - 6.50 K/cumm Imm gran abs 0.03 0.00 - 0.10 K/cumm [facility] Lymphocyte abs 5.11(H) 0.80 - 3.30 K/cumm [facility] Monocyte abs 0.76 0.20 - 0.80 K/cumm [facility] Eosinophil abs 0.13 0.00 - 0.50 K/cumm [facility] Basophil abs 0.03 0.00 - 0.10 K/cumm [facility] Neutrophil pct 39.7 % [facility] Comment: Interpretive Data Percent cell count reference ranges are not reported, since discordance with absolute values may lead to misinterpretation of CBC data. Current Interpretive Data was last revised on 2017. Imm gran pct 0.3 % [facility] Comment: Interpretive Data Percent cell count reference ranges are not reported, since discordance with absolute values may lead to misinterpretation of CBC data. Current Interpretive Data was last revised on 2017. Lymphocyte pct 50.8 % [facility] Comment: Interpretive Data Percent cell count reference ranges are not reported, since discordance with absolute values may lead to misinterpretation of CBC data. Current Interpretive Data was last revised on 2017. Monocyte pct 7.6 % [facility] Comment: Interpretive Data Percent cell count reference ranges are not reported, since discordance with absolute values may lead to misinterpretation of CBC data. Current Interpretive Data was last revised on 2017. Eosinophil pct 1.3 % [facility] Comment: Interpretive Data Percent cell count reference ranges are not reported, since discordance with absolute values may lead to misinterpretation of CBC data. Current Interpretive Data was last revised on 2017. Basophil pct 0.3 % [facility] Comment: Interpretive Data Percent cell count reference ranges are not reported, since discordance with absolute values may lead to misinterpretation of CBC data. Current Interpretive Data was last revised on 2017. Blood 01/19/2025 2:02 AM STAFFING COORDINATOR 01/19/2025 2:32 AM STAFFING COORDINATOR Florencia Thomas MD LAB BLOOD ORDERABLES Final Result [facility] Department [place] [address] * (ABNORMAL) Pro B-type natriuretic peptide (01/19/2025 2:02 AM STAFFING COORDINATOR) NT-proBNP 1,299(H) <=300 pg/mL Comment: Interpretive Comments: A. Dyspnea in Acute Care Setting All Ages: < 300 pg/ml, acute heart failure unlikely. < 50 yrs: 300 - 450 pg/ml, further investigation warranted. > 450 pg/ml, acute heart failure likely. 50 - 74 yrs: 300 - 900 pg/ml, further investigation warranted. > 900 pg/ml, acute heart failure likely . > or = 75 yrs: 450 - 1800 pg/ml, further investigation warranted. > 1800 pg/ml, acute heart failure likely. B. Non-acute Setting < 75 yrs < 125 pg/ml, rules out heart failure. > or = 125 pg/ml, further investigation warranted. > or = 75 yrs < 450 pg/ml, rules out heart failure. > or = 450 pg/ml, further investigation warranted. - Knowledge of each individual patient's NT-proBNP range may be more useful than using similar cut-points for every patient. Please note that marked elevations in NT-proBNP levels may be observed in state other than Left Ventricular Congestive Failure, including: acute coronary syndromes, right heart strain/failure (including pulmonary embolism and cor pulmonale), critical illness, renal failure, as well as advanced age. - References: 1. Jl HAWK et.al. Eur Heart J. 2006:27:330-337. 2. Morales RW, Robert SORIA. J. AM Josie Cardiol: Cardiovasc Imag. 2009;2: 216- 225. Interpretive Data Last Revised Date: 2017. Blood 01/19/2025 2:02 AM STAFFING COORDINATOR 01/19/2025 2:33 AM STAFFING COORDINATOR Florencia Thomas MD LAB BLOOD ORDERABLES Final Result Performing Organization Address [facility]/ZIP Co de Phone Number [facility] Department [place] [address] * (ABNORMAL) Thyroid Function [place] (01/19/2025 2:02 AM STAFFING COORDINATOR) Pathologist [facility] TSH 6.76(H) 0.30 - 4.20 mcIUnit/mL Blood 01/19/2025 2:02 AM STAFFING COORDINATOR 01/19/2025 2:33 AM STAFFING COORDINATOR Asim Lemus MD LAB BLOOD ORD ERABLES Final Result [facility] [place] [address] * (ABNORMAL) CBC with auto differential (01/19/2025 2:02 AM STAFFING COORDINATOR) Pathologist [facility] WBC 10.05(H) 3.80 - 9.90 K/cumm Hgb 10.3(L) 11.9 - 15.5 g/dL [facility] Hct 31.8(L) 35.6 - 45.5 % [facility] Plt 152 150 - 400 K/cumm [facility] MPV Not Measured 9.1 - 12.3 fL [facility] RBC 4.35 3.90 - 5.20 M/cumm [facility] MCV 73.1(L) 81.3 - 96.4 fL [facility] MCH 23.7(L) 27.1 - 33.3 pg [facility] MCHC 32.4 32.3 - 35.7 g/dL [facility] RDW CV 21.0(H) 11.1 - 14.9 % [facility] RDW SD 53.8(H) 35.7 - 48.1 fL [facility] NRBC abs 0.00 0.00 - 0.01 K/cumm [facility] Blood 01/19/2025 2:02 AM STAFFING COORDINATOR 01/19/2025 2:32 AM STAFFING COORDINATOR Florencia Thomas MD LAB BLOOD ORDERABLES Final Result [facility] [place] [address] * hCG, blood, quantitative (01/19/2025 2:02 AM STAFFING COORDINATOR) [facility] [address] hCG, quant <5.0 0.0 - 5.0 IUnits/L Comment: Interpretive Data Male: < 5 IU/L Non- premenopausal Female: <5 IU/L The [employer] hCG Beta Quant assay procedure was used. Results from different manufacturers or methods may not be comparable. Serial testing should be performed using the same method. Interpretive Data was last revised on 2023 Blood 01/19/2025 2:02 AM STAFFING COORDINATOR 01/19/2025 2:33 AM STAFFING COORDINATOR us Florencia Thomas MD LAB BLOOD ORDERABLES Final Result Performing Organization Address City/[facility]/ZIP Co de Phone Number [facility] [place] [address] * T4, free (01/19/2025 2:02 AM STAFFING COORDINATOR) Free T4 1.13 0.90 - 1.70 ng/dL Blood 01/19/2025 2:02 AM STAFFING COORDINATOR 01/19/2025 2:33 AM STAFFING COORDINATOR Narrative [facility] - 01/19/2025 3:50 PM STAFFING COORDINATOR This test was reflexed from a TSH result. Asim Lemus MD LAB BLOOD ORD ERABLES Final Result [facility] [place] [address] * (ABNORMAL) Comprehensive metabolic panel (01/19/2025 2:02 AM STAFFING COORDINATOR) Pathologist [facility] Sodium 134(L) 135 - 145 mmol/L Potassium, pl 4.2 3.3 - 4.9 mmol/L [facility] Chloride 97 97 - 110 mmol/L [facility] CO2 20(L) 22 - 32 mmol/L [facility] Anion gap 17(H) 2 - 15 mmol/L [facility] BUN 29(H) 6 - 25 mg/dL [facility] Creatinine 1.21(H) 0.60 - 1.10 mg/dL [facility] Glucose 88 70 - 199 mg/dL [facility] Comment: Interpretive Data Fasting glucose >/= 126 mg/dl is diagnostic for diabetes. Fasting is defined as no caloric intake for at least 8 hours. Fasting glucose between 100 mg/dl to 125 mg/dl is diagnostic of prediabetes. In a patient with classic symptoms of hyperglycemia or hyperglycemic crisis, a random glucose >/= 200 mg/dl is diagnostic for diabetes. In the absence of unequivocal hyperglycemia, results should be confirmed by repeat testing. The classification and Diagnosis of Diabetes Diabetes Care 2021; 46: S19-S40. Current interpretive data was last revised 2022. Calcium 8.7 8.5 - 10.3 mg/dL [facility] Bilirubin, total 7.4(H) 0.1 - 1.2 mg/dL [facility] Protein, pl 6.4(L) 6.5 - 8.5 g/dL [facility] Albumin 3.2(L) 3.5 - 5.0 g/dL [facility] Alk phos 306(H) 40 - 130 Units/L [facility] ALT 31 7 - 45 Units/L [facility] AST 52(H) 10 - 45 Units/L [facility] Blood 01/19/2025 2:02 AM STAFFING COORDINATOR 01/19/2025 2:33 AM STAFFING COORDINATOR Florencia Thomas MD LAB BLOOD ORDERABLES Final Result [facility] Department [place] [address] * Respiratory pathogen panel Nasopharyngeal (01/05/2025 4:23 PM STAFFING COORDINATOR) Pathologist [facility] Influenza A RNA Not Detected Not Detected Influenza B RNA Not Detected Not Detected [facility] RSV RNA Not Detected Not Detected [facility] COVID-19 RNA Not Detected Not Detected [facility] Coronavirus 229E RNA Not Detected Not Detected [facility] Coronavirus HKU1 RNA Not Detected Not Detected [facility] Coronavirus NL63 RNA Not Detected Not Detected [facility] Coronavirus OC43 RNA Not Detected Not Detected [facility] Adenovirus DNA Not Detected Not Detected [facility] Metapneumovirus RNA Not Detected Not Detected [facility] Rhinovirus/Enterov irus RNA Not Detected Not Detected [facility] Parainfluenza 1 RNA Not Detected Not Detected [facility] Parainfluenza 2 RNA Not Detected Not Detected [facility] Parainfluenza 3 RNA Not Detected Not Detected [facility] Parainfluenza 4 RNA Not Detected Not Detected [facility] B. pertussis DNA Not Detected Not Detected [facility] B. parapertussis DNA Not Detected Not Detected [facility] C. pneumoniae DNA Not Detected Not Detected [facility] M. pneumoniae DNA Not Detected Not Detected [facility] Nasopharyngeal 01/05/2025 4: 23 PM STAFFING COORDINATOR 01/05/2025 8:36 PM STAFFING COORDINATOR Olayinka [facility] - 01/05/2025 9:59 PM STAFFING COORDINATOR Is the Patient experiencing symptoms consistent with COVID?->Unknown Surveillance testing for transplant patient?->No Interpretive Data The [employer] FilmArray Respiratory Panel (RP2.1) assay is a multiplexed real-time PCR based nucleic acid test capable of simultaneous qualitative detection and identification of multiple respiratory viral and bacterial nucleic acids, including SARS Coronavirus 2 (the causative agent of COVID-19). The following bacteria, viruses and virus subtypes can be identified using the FilmArray RP2.1 assay: Bordetella pertussis, Bordetella parapertussis, Chlamydia pneumoniae, Mycoplasma pneumoniae, Adenovirus, SARS Coronavirus 2, seasonal coronaviruses (Coronavirus HKU1, Coronavirus NL63, Coronavirus 229E, and Coronavirus OC43), Influenza A, Influenza A subtype H1, Influenza A subtype H3, Influenza A subtype 2009 H1, Influenza B, Metapneumovirus, Parainfluenza 1, Parainfluenza 2, Parainfluenza 3, Parainfluenza 4, RSV, Rhinovirus/Enterovirus. Due to the genetic similarity between human Rhinovirus and Enterovirus, the FilmArray RP2.1 assay cannot reliably differentiate them. Coronavirus OC43 may cross-react with some isolates of Coronavirus HKU1. A dual positive result may be due to cross-reactivity or may indicate a co- infection. The detection and identification of specific viral and bacterial nucleic acids from individuals exhibiting signs and symptoms of a respiratory infection aids in the diagnosis of respiratory infection if used in conjunction with other clinical and epidemiological information. The results of this test should not be used as the sole basis for diagnosis, treatment, or other management decisions. Negative results in the setting of a respiratory illness may be due to infection with pathogens that are not detected by this test. Positive results do not rule out infection/co-infection with other organisms. The agent(s) detected by the FilmArray RP2.1 may not be the definite cause of disease. Additional testing (lab, imaging, etc.) may be necessary when evaluating a patient with possible respiratory tract infection. The FilmArray RP2.1 assay has FDA clearance for testing of MANAGER BEAUTY swabs. The performance of additional specimen types has been assessed by the performing laboratory. The performance characteristics of this assay have been determined by [facility] Molecular Infectious Disease Laboratory. Current interpretive data was last revised on 21. Adithya Ferrari MD LAB MICROBIOLOGY - GENERAL ORD ERABLES Final Result Performing Organization Address [facility] de Phone Number [facility] Department [place] [address] * Throat culture Throat (01/05/2025 4:23 PM STAFFING COORDINATOR) [facility] [address] Report Final Report: No growth of pathogens. Throat 01/05/2025 4:23 PM STAFFING COORDINATOR 01/05/2025 8:41 PM STAFFING COORDINATOR Narrative [facility] - 01/06/2025 6:00 PM STAFFING COORDINATOR Testing performed by [facility] Microbiology Laboratory ([phone]). Adithya Ferrari MD LAB MICROBIOLOGY - GENERAL ORD ERABLES Final Result Performing Organization Address [facility] de Phone Number [facility] Department [place] [address] * Allergen Mouse urine proteins (animal) IgE e72 (01/05/2025 3:39 PM STAFFING COORDINATOR) [facility] [address] Mouse urine proteins IgE <0.10 0.00 - 0.34 kUnits/L Blood 01/05/2025 3:39 PM STAFFING COORDINATOR 01/05/2025 7:57 PM STAFFING COORDINATOR Araseli Wilson MD LAB BLOOD ORDERABLES Final Result Performing Organization Address [facility] de Phone Number [facility] [place] [address] * (ABNORMAL) Immune competence (01/05/2025 3:39 PM STAFFING COORDINATOR) [facility] [address] CD3 pct 92(H) 60 - 88 % CD3 Absolute 592(L) 661 - 1,963 cells/mcL [facility] CD4 pct 14(L) 31 - 64 % [facility] CD4 Absolute 88(L) 365 - 1,294 cells/mcL [facility] CD8 pct 82(H) 12 - 40 % [facility] CD8 Absolute 508 187 - 781 cells/mcL [facility] CD19 pct 1(L) 6 - 25 % [facility] CD19 Absolute <25(L) 86 - 488 cells/mcL [facility] Comment:verified [id number] pct 3(L) 5 - 25 % [facility] [id number] Absolute <35(L) 76 - 467 cells/mcL [facility] Comment:verified CD4/CD8 ratio 0.2 [facility] Blood 01/05/2025 3:39 PM STAFFING COORDINATOR 01/05/2025 7:57 PM STAFFING COORDINATOR Araseli Wilson MD LAB BLOOD ORDERABLES Final Result Performing Organization Address City/[facility] Co de Phone Number [facility] Department [place] [address] * Allergen Penicillium chrysogenum (mold) IgE (01/05/2025 3:39 PM STAFFING COORDINATOR) Penicillium chrysogenum IgE <0.10 0.00 - 0.34 kUnits/L Blood 01/05/2025 3:39 PM STAFFING COORDINATOR 01/05/2025 7:57 PM STAFFING COORDINATOR Araseli Wilson MD LAB BLOOD ORDERABLES Final Result [facility] Department [place] [address] * Allergen [place] (tree) IgE (01/05/2025 3:39 PM STAFFING COORDINATOR) [place] IgE <0.10 0.00 - 0.34 kUnits/L Blood 01/05/2025 3:39 PM STAFFING COORDINATOR 01/05/2025 7:57 PM STAFFING COORDINATOR Araseli Wilson MD LAB BLOOD ORDERABLES Final Result [facility] Department [place] [address] * Allergen Mountain lien (tree) IgE (01/05/2025 3:39 PM STAFFING COORDINATOR) Pathologist [facility] Rajesh emmanuel IgE <0.10 0.00 - 0.34 kUnits/L Blood 01/05/2025 3:39 PM STAFFING COORDINATOR 01/05/2025 7:57 PM STAFFING COORDINATOR Araseli Wilson MD LAB BLOOD ORDERABLES Final Result Performing Organization Address City/[facility]/ZIP Co de Phone Number [facility] [place] [address] * Strep pneumoniae antibody serotypes (01/05/2025 3:39 PM STAFFING COORDINATOR) Pathologist [facility] S. pneumo Type 1 (1) TNP/SEE COMMENT [place] ref [facility] Comment: Credited, quantity not sufficient. S. pneumoniae IgG Ab,23 serotypes,S was cancelled on 01/12/2025 at 11:37; Quantity was not sufficient for testing. Test Performed by: [facility] [address] [place] [address] Tobacco Blender: Jacky Thurman Ph.D.; CLIA# [id number] S. pneumo Type 2 (2) Not Reported [facility] S. pneumo Type 3 (3) Not Reported [facility] S. pneumo Type 4 (4) Not Reported [facility] S. pneumo Type 5 (5) Not Reported [facility] S. pneumo Type 8 (8) Not Reported [facility] S. pneumo Type 9N (9) Not Reported [facility] S. pneumo Type 12F (12) Not Reported [facility] S. pneumo Type 14 (14) Not Reported [facility] S. pneumo Type 17F (17) Not Reported [facility] S. pneumo Type 19F (19) Not Reported [facility] S. pneumo Type 20 (20) Not Reported [facility] S. pneumo Type 22F (22) Not Reported [facility] S. pneumo Type 23F (23) Not Reported [facility] S. pneumo Type 6B (26) Not Reported [facility] S. pneumo Type 10A (34) Not Reported [facility] S. pneumo Type 11A (43) Not Reported [facility] S. pneumo Type 7F (51) Not Reported [facility] S. pneumo Type 15B (54) Not Reported [facility] S. pneumo Type 18C (56) Not Reported [facility] S. pneumo Type 19A (57) Not Reported [facility] S. pneumo Type 9V (68) Not Reported [facility] S. pneumo Type 33F (70) Not Reported [facility] Pneum Ab 23 interp Not Reported [facility] Blood 01/05/2025 3:39 PM STAFFING COORDINATOR 01/05/2025 10:32 PM STAFFING COORDINATOR Araseli Wilson MD LAB BLOOD ORDERABLES Edited Result - Final [facility] Department [place] [address] [facility] * Allergen Bermuda grass (grass) IgE (01/05/2025 3:39 PM STAFFING COORDINATOR) [facility] [address] Bermuda grass IgE <0.10 0.00 - 0.34 kUnits/L Blood 01/05/2025 3:39 PM STAFFING COORDINATOR 01/05/2025 7:57 PM STAFFING COORDINATOR Araseli Wilson MD LAB BLOOD ORDERABLES Final Result [facility] Department [place] [address] * Allergen Plantain norwegian (weed) IgE (01/05/2025 3:39 PM STAFFING COORDINATOR) [facility] [address] Plantain norwegian IgE <0.10 0.00 - 0.34 kUnits/L Blood 01/05/2025 3:39 PM STAFFING COORDINATOR 01/05/2025 7:57 PM STAFFING COORDINATOR Araseli Wilson MD LAB BLOOD ORDERABLES Final Result Performing Organization Address [facility] Co de Phone Number [facility] [place] [address] * Allergen Elm (tree) IgE (01/05/2025 3:39 PM STAFFING COORDINATOR) Elm IgE <0.10 0.00 - 0.34 kUnits/L Blood 01/05/2025 3:39 PM STAFFING COORDINATOR 01/05/2025 7:57 PM STAFFING COORDINATOR Araseli Wilson MD LAB BLOOD ORDERABLES Final Result Performing Organization Address [facility] de Phone Number [facility] [place] [address] * Allergen Cladosporium herbarum (mold) IgE (01/05/2025 3:39 PM STAFFING COORDINATOR) Cladosporium herbarum IgE <0.10 0.00 - 0.34 kUnits/L Blood 01/05/2025 3:39 PM STAFFING COORDINATOR 01/05/2025 7:57 PM STAFFING COORDINATOR Araseli Wilson MD LAB BLOOD ORDERABLES Final Result Performing Organization Address [facility] [place] [address] * Allergen Birch common silver (tree) IgE (01/05/2025 3:39 PM STAFFING COORDINATOR) Birch common silver IgE <0.10 0.00 - 0.34 kUnits/L Blood 01/05/2025 3:39 PM STAFFING COORDINATOR 01/05/2025 7:57 PM STAFFING COORDINATOR Araseli Wilson MD LAB BLOOD ORDERABLES Final Result Performing Organization Address [facility] [place] [address] * Allergen Alternaria tenuis (mold) IgE (01/05/2025 3:39 PM STAFFING COORDINATOR) Alternaria tenius IgE <0.10 0.00 - 0.34 kUnits/L Blood 01/05/2025 3:39 PM STAFFING COORDINATOR 01/05/2025 7:57 PM STAFFING COORDINATOR Araseli Wilson MD LAB BLOOD ORDERABLES Final Result Performing Organization Address [facility] [place] [address] * Allergen Aspergillus fumigatus (mold) IgE (01/05/2025 3:39 PM STAFFING COORDINATOR) Aspergillus fumigatus IgE <0.10 0.00 - 0.34 kUnits/L Blood 01/05/2025 3:39 PM STAFFING COORDINATOR 01/05/2025 7:57 PM STAFFING COORDINATOR Araseli Wilson MD LAB BLOOD ORDERABLES Final Result Performing Organization Address [facility] [place] [address] * Allergen Dermatophagoides pteronyssinus (insect) IgE (01/05/2025 3:39 PM STAFFING COORDINATOR) Dermatophyton pteronyssinus IgE <0.10 0.00 - 0.34 kUnits/L Blood 01/05/2025 3:39 PM STAFFING COORDINATOR 01/05/2025 7:57 PM STAFFING COORDINATOR Araseli Wilson MD LAB BLOOD ORDERABLES Final Result Performing Organization Address [facility] Co de Phone Number [facility] [place] [address] * Allergen Dermatophagoides farniae (insect) IgE (01/05/2025 3:39 PM STAFFING COORDINATOR) Dermatophyton farinae IgE <0.10 0.00 - 0.34 kUnits/L Blood 01/05/2025 3:39 PM STAFFING COORDINATOR 01/05/2025 7:57 PM STAFFING COORDINATOR Result [facility] Araseli Wilson MD LAB BLOOD ORDERABLES Final Result Performing Organization Address [facility] de Phone Number [facility] [place] [address] * Allergen Epithelia/dander dog (animal) IgE (01/05/2025 3:39 PM STAFFING COORDINATOR) Dog dander IgE <0.10 0.00 - 0.34 kUnits/L Blood 01/05/2025 3:39 PM STAFFING COORDINATOR 01/05/2025 7:57 PM STAFFING COORDINATOR Result [facility] Araseli Wilson MD LAB BLOOD ORDERABLES Final Result Performing Organization Address [facility] Co de Phone Number [facility] Department [place] [address] * Allergen Pecan (tree) IgE (01/05/2025 3:39 PM STAFFING COORDINATOR) Pecan (tree) IgE <0.10 0.00 - 0.34 kUnits/L Blood 01/05/2025 3:39 PM STAFFING COORDINATOR 01/05/2025 7:57 PM STAFFING COORDINATOR Araseli Wilson MD LAB BLOOD ORDERABLES Final Result Performing Organization Address [facility] Co de Phone Number [facility] [place] [address] * Allergen Cockroach ukrainian (insect) IgE (01/05/2025 3:39 PM STAFFING COORDINATOR) Cockroach IgE <0.10 0.00 - 0.34 kUnits/L Blood 01/05/2025 3:39 PM STAFFING COORDINATOR 01/05/2025 7:57 PM STAFFING COORDINATOR Araseli Wilson MD LAB BLOOD ORDERABLES Final Result Performing Organization Address [facility] [place] [address] * Allergen Epithelia/dander cat (animal) IgE (01/05/2025 3:39 PM STAFFING COORDINATOR) Cat dander IgE <0.10 0.00 - 0.34 kUnits/L Blood 01/05/2025 3:39 PM STAFFING COORDINATOR 01/05/2025 7:57 PM STAFFING COORDINATOR Araseli Wilson MD LAB BLOOD ORDERABLES Final Result Performing Organization Address [facility] Co de Phone Number [facility] [place] [address] * Allergen Ragweed short/common (weed) IgE (01/05/2025 3:39 PM STAFFING COORDINATOR) Ragweed common IgE <0.10 0.00 - 0.34 kUnits/L Blood 01/05/2025 3:39 PM STAFFING COORDINATOR 01/05/2025 7:57 PM STAFFING COORDINATOR Araseli Wilson MD LAB BLOOD ORDERABLES Final Result Performing Organization Address [facility] Co de Phone Number [facility] [place] [address] * Allergen Pigweed, rough (weed) IgE (01/05/2025 3:39 PM STAFFING COORDINATOR) Pigweed rough IgE <0.10 0.00 - 0.34 kUnits/L Blood 01/05/2025 3:39 PM STAFFING COORDINATOR 01/05/2025 7:57 PM STAFFING COORDINATOR Araseli Wilson MD LAB BLOOD ORDERAB[place] [address] * Allergen Nettle (weed) IgE (01/05/2025 3:39 PM STAFFING COORDINATOR) Nettle IgE <0.10 0.00 - 0.34 kUnits/L Blood 01/05/2025 3:39 PM STAFFING COORDINATOR 01/05/2025 7:57 PM STAFFING COORDINATOR Araseli Wilson MD LAB BLOOD ORDERABLES Final Result Performing Organization Address City/[facility]/[place] [address] * Allergen Mugwort (weed) IgE (01/05/2025 3:39 PM STAFFING COORDINATOR) Mugwort IgE <0.10 0.00 - 0.34 kUnits/L Blood 01/05/2025 3:39 PM STAFFING COORDINATOR 01/05/2025 7:57 PM STAFFING COORDINATOR Araseli Wilson MD LAB BLOOD ORDERABLES Final Result Performing Organization Address City/[facility]/[place] [address] * Allergen Lawton's quarter (weed) IgE (01/05/2025 3:39 PM STAFFING COORDINATOR) Lawton's quarters IgE <0.10 0.00 - 0.34 kUnits/L Blood 01/05/2025 3:39 PM STAFFING COORDINATOR 01/05/2025 7:57 PM STAFFING COORDINATOR Araseli Wilson MD LAB BLOOD ORDERABLES Final Result Performing Organization Address [facility] Co de Phone Number [facility] [place] [address] * Allergen Jared grass (grass) IgE (01/05/2025 3:39 PM STAFFING COORDINATOR) Jared grass IgE <0.10 0.00 - 0.34 kUnits/L Blood 01/05/2025 3:39 PM STAFFING COORDINATOR 01/05/2025 7:57 PM STAFFING COORDINATOR Araseli Wilson MD LAB BLOOD ORDERABLES Final Result Performing Organization Address [facility] [place] [address] * Allergen Radha grass (grass) IgE (01/05/2025 3:39 PM STAFFING COORDINATOR) Radha grass IgE <0.10 0.00 - 0.34 kUnits/L Blood 01/05/2025 3:39 PM STAFFING COORDINATOR 01/05/2025 7:57 PM STAFFING COORDINATOR Araseli Wilson MD LAB BLOOD ORDERABLES Final Result Performing Organization Address [facility] de Phone Number [facility] [place] [address] * Allergen [place] (tree) IgE (01/05/2025 3:39 PM STAFFING COORDINATOR) [place] (tree) IgE <0.10 0.00 - 0.34 kUnits/L Blood 01/05/2025 3:39 PM STAFFING COORDINATOR 01/05/2025 7:57 PM STAFFING COORDINATOR Araseli Wilson MD LAB BLOOD ORDERABLES Final Result Performing Organization Address [facility] Co de Phone Number [facility] [place] [address] * Allergen [place] ukrainian (tree) IgE (01/05/2025 3:39 PM STAFFING COORDINATOR) [place] IgE <0.10 0.00 - 0.34 kUnits/L Blood 01/05/2025 3:39 PM STAFFING COORDINATOR 01/05/2025 7:57 PM STAFFING COORDINATOR Araseli Wilson MD LAB BLOOD ORDERABLES Final Result Performing Organization Address [facility] de Phone Number [facility] Department [place] [address] * Allergen [place] (tree) IgE (01/05/2025 3:39 PM STAFFING COORDINATOR) [place] IgE <0.10 0.00 - 0.34 kUnits/L Blood Venous blood specimen / Unknown 01/05/2025 3:39 PM STAFFING COORDINATOR 01/05/2025 7:57 PM STAFFING COORDINATOR Araseli Wilson MD LAB BLOOD ORDERABLES Final Result Performing Organization Address [facility] [place] [address] * Allergen Maple/Box elder (tree) IgE (01/05/2025 3:39 PM STAFFING COORDINATOR) Maple/box elder IgE <0.10 0.00 - 0.34 kUnits/L Blood 01/05/2025 3:39 PM STAFFING COORDINATOR 01/05/2025 7:57 PM STAFFING COORDINATOR Araseli Wilson MD LAB BLOOD ORDERABLES Final Result Performing Organization Address [facility] Co de Phone Number [facility] [place] [address] * Allergen Ottoniel white (tree) IgE (01/05/2025 3:39 PM STAFFING COORDINATOR) Ottoniel white IgE <0.10 0.00 - 0.34 kUnits/L Blood 01/05/2025 3:39 PM STAFFING COORDINATOR 01/05/2025 7:57 PM STAFFING COORDINATOR Araseli Wilson MD LAB BLOOD ORDERABLES Final Result Performing Organization Address [facility] de Phone Number [facility] [place] [address] * Allergen [place] red (tree) IgE (01/05/2025 3:39 PM STAFFING COORDINATOR) [place] IgE <0.10 0.00 - 0.34 kUnits/L Blood 01/05/2025 3:39 PM STAFFING COORDINATOR 01/05/2025 7:57 PM STAFFING COORDINATOR Araseli Wilson MD LAB BLOOD ORDERABLES Final Result Performing Organization Address [facility] [place] [address] * (ABNORMAL) Erythrocyte sedimentation rate (01/05/2025 3:39 PM STAFFING COORDINATOR) Erythrocyte sedimentation rate 82(H) 1 - 20 mm/hr Blood 01/05/2025 3:39 PM STAFFING COORDINATOR 01/05/2025 7:57 PM STAFFING COORDINATOR Araseli Wilson MD LAB BLOOD ORDERABLES Final Result Performing Organization Address [facility] Co de Phone Number [facility] [place] [address] * (ABNORMAL) CRP (acute phase) (01/05/2025 3:39 PM STAFFING COORDINATOR) Pathologist [facility] CRP 14.7(H) <=10.0 mg/L Blood 01/05/2025 3:39 PM STAFFING COORDINATOR 01/05/2025 7:57 PM STAFFING COORDINATOR us Araseli Wilson MD LAB BLOOD ORDERABLES Final Result Performing Organization Address [facility] [place] [address] * IgE (01/05/2025 3:39 PM STAFFING COORDINATOR) [facility] [address] IgE <2 <=100 IUnits/mL Blood 01/05/2025 3:39 PM STAFFING COORDINATOR 01/05/2025 7:57 PM STAFFING COORDINATOR us Araseli Wilson MD LAB BLOOD ORDERABLES Final Result Performing Organization Address [facility] Co de Phone Number [facility] [place] [address] * IgG (01/05/2025 3:39 PM STAFFING COORDINATOR) [facility] [address] Immunoglobulin G 1,182 700 - 1,600 mg/dL Blood 01/05/2025 3:39 PM STAFFING COORDINATOR 01/05/2025 7:57 PM STAFFING COORDINATOR Araseli Wilson MD LAB BLOOD ORDERABLES Final Result Performing Organization Address [facility] Co de Phone Number [facility] [place] [address] * CT Chest High Resolution WO Contrast (12/23/2024 4:56 PM CDT) Anatomical Region Laterality Modality Chest N/A Computed Tomogra phy 12/24/2024 7:23 AM CDT Impressions 12/24/2024 7:26 AM CDT Mild fibrosis in the right lung base likely related to the patient's connective tissue disease unchanged since 08/16/2023. Dictated by: Mitchel Alvarado M.D. The radiology attending physician has personally reviewed this study, and had reviewed and/or edited this written report and agrees with it. Electronically signed by: Devan Blankenship M.D. Narrative 12/24/2024 7:26 AM CDT EXAMINATION: Computed tomography of the chest without intravenous contrast HISTORY: Interstitial lung disease. RA and autoimmune hepatitis. Evaluate for change. TECHNIQUE: Transaxial computed tomographic images of the chest were obtained without intravenous contrast according to the high-resolution protocol. COMPARISON: 08/16/2023 FINDINGS: Peripheral reticulation, traction bronchiectasis, mild honeycombing and small cysts are again seen in the right middle and lower lobes this appears unchanged. This is in part of the area of patchy groundglass and consolidation present in both lung bases on PET/CT 01/14/2020 which has otherwise since resolved. No air trapping or central airway collapse. Perifissural lymph nodes along the minor fissure are unchanged. No suspicious pulmonary nodule. No enlarged lymph nodes. Normal caliber pulmonary arteries and aorta. No pleural or pericardial effusion. Trace calcification of left anterior descending coronary artery. Images of the upper abdomen show cholecystectomy clips and splenomegaly approximately 15.6 cm in greatest transverse plane dimension, not significant changed from PET/CT 01/14/2020. No osseous lesion. Procedure Note Devan Blankenship MD - 12/24/2024 EXAMINATION: Computed tomography of the chest without intravenous contrast HISTORY: Interstitial lung disease. RA and autoimmune hepatitis. Evaluate for change. TECHNIQUE: Transaxial computed tomographic images of the chest were obtained without intravenous contrast according to the high-resolution protocol. COMPARISON: 08/16/2023 FINDINGS: Peripheral reticulation, traction bronchiectasis, mild honeycombing and small cysts are again seen in the right middle and lower lobes this appears unchanged. This is in part of the area of patchy groundglass and consolidation present in both lung bases on PET/CT 01/14/2020 which has otherwise since resolved. No air trapping or central airway collapse. Perifissural lymph nodes along the minor fissure are unchanged. No suspicious pulmonary nodule. No enlarged lymph nodes. Normal caliber pulmonary arteries and aorta. No pleural or pericardial effusion. Trace calcification of left anterior descending coronary artery. Images of the upper abdomen show cholecystectomy clips and splenomegaly approximately 15.6 cm in greatest transverse plane dimension, not significant changed from PET/CT 01/14/2020. No osseous lesion. IMPRESSION: Mild fibrosis in the right lung base likely related to the patient's connective tissue disease unchanged since 08/16/2023. Dictated by: Mitchel Alvarado M.D. The radiology attending physician has personally reviewed this study, and had reviewed and/or edited this written report and agrees with it. Electronically signed by: Devan Blankenship M.D. Murtaza Butt MD IMG CT PROCEDURES Final Result * Pulmonary Function Test - (12/15/2024 3:18 PM CDT) FVC PRE 3.56 L [facility] FVC %PRE PRED 89 % [facility] FEV1 PRE 2.99 L [facility] FEV1 %PRE PRED 92 % [facility] FEV1/FVC PRE 83.9 % [facility] Anatomical Region Laterality Modality PFT 12/15/2024 2:52 PM CDT Narrative 12/15/2024 4:03 PM CDT Table formatting from the original result was not included. [facility] Division of Pulmonary & Critical Care Medicine [address] [place] [address]; [address]; [place] [address]; [phone] Pulmonary Function Laboratory Pulmonary Stress Test Simple/Oxygen Assessment Patient: Mehreen Preston Date: 12/15/2024 : 1980 Ht: 68 IN Wt: 270.8 LBS Time (min) Distance (ft)/ [place]illa O2 L/M SpO2 HR Teresa* BP FEV1 % Pred Rest: RA 97 84 0 137/177 2.99 92 % Walk/Bike: 1 RA 95 95 2 2 RA 95 95 1 3 RA 94 97 1 4 RA 95 96 1 5 RA 94 97 2 6 min 0 sec RA 95 97 2 Recovery: 1 RA 97 87 1 149/80 2.99 92% 3 *Teresa rate of perceived exertion (1-10 dyspnea scale) Luis M, CHEST 2003; [id number] Walk Test Summary: Six Minute Walk Distance: 705 ft Six-minute Walk Work [distance (m) x body wt (kg)]: 94371 kg.m (normal >60,000kg.m) Oxygen required to maintain SpO2 greater than 90% during six minutes of walkin L/M Comments: Interpretation: Breathing room air, SpO2 is normal at rest and during exercise sufficient to increase pulse, SpO2 is stable. On this basis, SpO2 is adequate at rest breathing room air and while walking breathing room air. This level of exercise is associated with no significant change of FEV1. By signing this report, the attending pulmonary physician certifies that he/she has personally reviewed and interpreted the graphic and numerical data associated with this pulmonary function study and has reviewed and /or edited a preliminary draft report and agrees with the written final report. PFT performed at:->[facility] Adult PFT Lab- [facility] Procedure:->Spirometry Procedure:->Oxygen Assessment Titration Pulmonary Function Test Interpretation SPIROMETRY: Spirometry is normal. The FEV1 and FVC are normal. The FEV1 to FVC ratio is normal. The inspiratory loop is normal. PULSE OXIMETRY: See Oxygen Assessment/Cardiopulmonary Exercise Study-Simple Impression: There is no ventilatory defect. Compared with most recent study, there has been significant interval improvement of the FVC. Compared with most recent study, there has been significant interval improvement of the FEV1. The attending pulmonary physician certifies a physician presence in the [facility] during the administration of aerosolized bronchodilator. The attending pulmonary physician certifies that he/she has reviewed and interpreted the graphic and numerical data of this pulmonary function study and agrees with the written final report. The lower limit of normal for PaO2 and %HbO2 is age dependent. However, the [facility] Pulmonary Function Laboratory defines hypoxemia as a PaO2 <56 mm Hg or a %HbO2 <89%. Starting on March of 2024 the [facility] Pulmonary Function Laboratory utilizes race neutral GLI Global normative equations. Murtaza Butt MD PFT ORDERABLES Final Result * TRANSTHORACIC ECHO (TTE) COMPLETE W DOPPLER/CF W CONTRAST W BUBBLE (12/15/2024 2:30 PM CDT) EF Mod BP 63 % CONS SCIMAGE Anatomical Region Laterality Modality Ultrasound 12/15/2024 1:53 PM CDT Narrative 12/16/2024 8:17 AM CDT [facility] Cardiac [place] [address] Transthoracic Echocardiographic Report Patient Name: MEHREEN PRESTON A : 1980 (44y 10m) Sex: F Study Date: 12/15/2024 01:53:31 PM Ht(Inch): 68 Wt(Lb): 287.92 BSA: 2.39 Music Educator: Location: [facility] [place] Order Provider: UMRTAZA BUTT Heart Rate: 83 BMI: 43.77 BP: 140 / 79 Ref Provider: MURTAZA BUTT PROCEDURES: Echocardiographic Report: Transthoracic complete echo with strain imaging and contrast, 2D, spectral and tissue Doppler, color flow Doppler, M-mode. Contrast: Contrast Enhancement was Employed: After initial imaging due to sub- optimal quality related to co-morbidity defined by patient's body habitus and due to suboptimal image quality with inadequate visualization of at least 2 of 16 LV wall segments in any view after initial imaging. Perflutren contrast was administered using the volume necessary to obtain adequate images. 0.15 ml Definity Administered, (1.35 ml wasted) & NS Bubble Study. INDICATIONS: R05.3 Chronic cough, G47.33 Obstructive sleep apnea (adult) (pediatric), K21.9 Gastro-esophageal reflux disease without esophagitis, D83.9 Common variable immunodeficiency, unspecified, K75.4 Autoimmune hepatitis, J84.9 Interstitial pulmonary disease, unspecified, M05.741 Rheumatoid arthritis with rheumatoid factor of right hand without organ or systems involvement, and M05.742 Rheumatoid arthritis with rheumatoid factor of left hand without organ or systems involvement. CONCLUSIONS: 1. Normal left ventricular size based on volume index. Concentric LV remodeling. Normal left ventricular systolic function. The Ejection Fraction ([employer]) is measured at 63 %. Normal diastolic function. The average global longitudinal strain is normal. 2. Normal right ventricular size. Normal right ventricular systolic function. TV S'=0.17 m/s (normal function). 3. Bidirectional shunt, positive for PFO or ASD by agitated saline bubble study all associated with small atrial septal aneurysm. 4. The estimated pulmonary artery systolic pressure is 30.0 mmHg. No pulm HTN. ATTESTATION: I have personally reviewed and interpreted this study without fellow or resident. DISCLAIMER: The study images and the final report will be retained in the patient chart by the Echo Laboratory for the legally required time period. This chart constitutes the legal record of any testing performed. FINDINGS: Left Ventricle: Normal left ventricular size based on volume index. Concentric LV remodeling. Normal left ventricular systolic function. The Ejection Fraction ([employer]) is measured at 63 %. Normal diastolic function. The average global longitudinal strain is normal. The LV global strain is: -19.3 %. Right Ventricle: Normal right ventricular size. Normal right ventricular systolic function. TV S'=0.17 m/s (normal function). Left Atrium: The left atrium is normal in size. Right Atrium: The right atrium is normal in size. The right atrium is normal in size. Atrial Septum: Bidirectional shunt, positive for PFO or ASD by agitated saline bubble study all associated with small atrial septal aneurysm. Mitral Valve: Normal mitral valve structure. No mitral regurgitation. Aortic Valve: Normal trileaflet aortic valve. No aortic regurgitation. The mean transaortic gradient is 6 mmHg. The aortic valve area by the continuity equation (using VTI) is 2.5 cm2. Aortic valve dimensionless index is 0.97. Tricuspid Valve: Normal tricuspid valve structure. Mild tricuspid regurgitation. The estimated pulmonary artery systolic pressure is 30.0 mmHg. No pulm HTN. Pulmonic Valve: Normal pulmonic valve structure. No pulmonic regurgitation. Pericardium: Normal pericardium without pericardial effusion. Aorta: Normal aortic root. Normal aortic root size at sinuses of Valsalva. IVC: IVC is normal in size. The IVC was <2.1 cm and collapsibility >50%. (est. RA pressure 0-5 mmHg). MEASUREMENTS: 2D/MM Value Range Doppler Value Range LVIDd 2D 4.5 cm [ 3.8 - 5.2 ] AV Peak Brodie 1.5 m/s [ 1.0 - 1.7 ] LVIDs 2D 2.8 cm [ 2.2 - 3.5 ] AV Peak PG 9 mmHg IVSd 2D 1.3 cm [ 0.6 - 0.9 ] AV Mean PG 6 mmHg LVPWd 2D 1.3 cm [ 0.6 - 0.9 ] AV VTI 31 cm LV Thickness Ratio 1.0 LVOT Peak Brodie 1.4 m/s [ 0.7 - 1.1 ] LV FS 2D 37.13 % [ 27.00 - 45.00 ] LVOT Peak PG 8 mmHg LV Mass 2D 225.48 g LVOT Mean PG 4 mmHg LV Mass Index 2D 94.49 g/m2 LVOT VTI 30 cm RWT 0.58 LVOT Diam 1.8 cm EDV Mod BP 143 ml [ 46 - 106 ] FABIAN VTI 2.5 cm2 LV EDV Index 60 ml/m2 LVOT/AV VTI 0.97 - Dimensionless index (DVI) ESV Mod BP 52 ml [ 14 - 42 ] MV E Peak Brodie 1.18 m/s [ 0.60 - 1.30 ] EF Mod BP 63 % [ 54 - 74 ] MV A Peak Brodie 0.96 m/s [ 1.00 - 1.20 ] LV GLS -19.3 % [ -25.0 - -18.0 ] MV E/A 1.2 ratio [ 0.8 - 1.5 ] LA Length 4C 6.3 cm MV Decel [place] 656 LA Length 2C 5.3 cm MV Decel Time 180 msec [ 104 - 258 ] LA Volume BP 80 ml Med E` Brodie 11.9 cm/sec [ 8.0 - 25.0 ] LA Volume Index 34 ml/m2 [ 16 - 34 ] Lat E` Brodie 12.8 cm/sec [ 10.0 - 25.0 ] RV Base Dimen 2D 4.0 cm [ 2.5 - 4.2 ] Average E/E` 10 TAPSE 2.4 cm [ 1.7 - 5.0 ] RV S` 17.3 cm/sec RA Volume 66 ml TR Peak Brodie 2.3 m/s [ 1.0 - 2.8 ] RA Volume Index 28 ml/m2 TR Peak PG 21 mmHg IVC Diam 0.5 cm PV Peak Brodie 1.4 m/s [ 0.4 - 0.8 ] IVC Collapse 57.0 % PV Peak PG 8 mmHg AoR Diam 2D 2.9 cm [ 2.7 - 3.7 ] Ao Root Index 1.2 cm/m2 [ 1.0 - 2.0 ] Electronically Signed By: Guillermo Dobbins M.D. 12/16/2024 8:16:58 AM CDT Procedure Note Guillermo Dobbins MD PhD - 12/16/2024 [facility] [place] [place] [address] Transthoracic Echocardiographic Report Patient Name: MEHREEN PRESTON A : 1980 (44y 10m) Sex: F Study Date: 12/15/2024 01:53:31 PM Ht(Inch): 68 Wt(Lb): 287.92 BSA: 2.39 Music Educator: ANTONETTE Location: [facility] [place] Order Provider: MURTAZA BUTT Heart Rate: 83 BMI: 43.77 BP: 140 / 79 Ref Provider: UMRTAZA BUTT PROCEDURES: Echocardiographic Report: Transthoracic complete echo with strain imagingand contrast, 2D, spectral and tissue Doppler, color flow Doppler, M-mode. Contrast: Contrast Enhancement was Employed: After initial imaging due tosub- optimal quality related to co-morbidity defined by patient's body habitus and dueto suboptimal image quality with inadequate visualization of at least 2 of 16 LV wallsegments in any view after initial imaging. Perflutren contrast was administered using thevolume necessary to obtain adequate images. 0.15 ml Definity Administered, (1.35ml wasted) & NS Bubble Study. INDICATIONS: R05.3 Chronic cough, G47.33 Obstructive sleep apnea (adult) (pediatric),K21.9 Gastro-esophageal reflux disease without esophagitis, D83.9 Commonvariable immunodeficiency, unspecified, K75.4 Autoimmune hepatitis, J84.9Interstitial pulmonary disease, unspecified, M05.741 Rheumatoid arthritis with rheumatoid factorof right hand without organ or systems involvement, and M05.742 Rheumatoid arthritiswith rheumatoid factor of left hand without organ or systems involvement. CONCLUSIONS: 1. Normal left ventricular size based on volume index. Concentric LVremodeling. Normal left ventricular systolic function. The Ejection Fraction ([employer]) ismeasured at 63 %. Normal diastolic function. The average global longitudinal strain isnormal. 2. Normal right ventricular size. Normal right ventricular systolicfunction. TV S'=0.17 m/s (normal function). 3. Bidirectional shunt, positive for PFO or ASD by agitated saline bubblestudy all associated with small atrial septal aneurysm. 4. The estimated pulmonary artery systolic pressure is 30.0 mmHg. No pulmHTN. ATTESTATION: I have personally reviewed and interpreted this study without fellow orresident. DISCLAIMER: The study images and the final report will be retained in the patientchart by the Echo Laboratory for the legally required time period. This chart constitutesthe legal record of any testing performed. FINDINGS: Left Ventricle: Normal left ventricular size based on volume index.Concentric LV remodeling. Normal left ventricular systolic function. The EjectionFraction ([employer]) is measured at 63 %. Normal diastolic function. The average globallongitudinal strain is normal. The LV global strain is: -19.3 %. Right Ventricle: Normal right ventricular size. Normal right ventricularsystolic function. TV S'=0.17 m/s (normal function). Left Atrium: The left atrium is normal in size. Right Atrium: The right atrium is normal in size. The right atrium isnormal in size. Atrial Septum: Bidirectional shunt, positive for PFO or ASD by agitatedsaline bubble study all associated with small atrial septal aneurysm. Mitral Valve: Normal mitral valve structure. No mitral regurgitation. Aortic Valve: Normal trileaflet aortic valve. No aortic regurgitation. Themean transaortic gradient is 6 mmHg. The aortic valve area by the continuityequation (using VTI) is 2.5 cm2. Aortic valve dimensionless index is 0.97. Tricuspid Valve: Normal tricuspid valve structure. Mild tricuspidregurgitation. The estimated pulmonary artery systolic pressure is 30.0 mmHg. No pulm HTN. Pulmonic Valve: Normal pulmonic valve structure. No pulmonicregurgitation. Pericardium: Normal pericardium without pericardial effusion. Aorta: Normal aortic root. Normal aortic root size at sinuses ofValsalva. IVC: IVC is normal in size. The IVC was <2.1 cm and collapsibility >50%.(est. RA pressure 0-5 mmHg). MEASUREMENTS: 2D/MM Value Range DopplerValue Range LVIDd 2D 4.5 cm [ 3.8 - 5.2 ] AV Peak Vel1.5 m/s [ 1.0 - 1.7 ] LVIDs 2D 2.8 cm [ 2.2 - 3.5 ] AV Peak PG9 mmHg IVSd 2D 1.3 cm [ 0.6 - 0.9 ] AV Mean PG6 mmHg LVPWd 2D 1.3 cm [ 0.6 - 0.9 ] AV VTI31 cm LV Thickness Ratio 1.0 LVOT Peak Vel1.4 m/s [ 0.7 - 1.1 ] LV FS 2D 37.13 % [ 27.00 - 45.00 ] LVOT Peak PG8 mmHg LV Mass 2D 225.48 g LVOT Mean PG4 mmHg LV Mass Index 2D 94.49 g/m2 LVOT VTI30 cm RWT 0.58 LVOT Diam1.8 cm EDV Mod BP 143 ml [ 46 - 106 ] FABIAN VTI2.5 cm2 LV EDV Index 60 ml/m2 LVOT/AV VTI0.97 - Dimensionless index (DVI) ESV Mod BP 52 ml [ 14 - 42 ] MV E Peak Vel1.18 m/s [ 0.60 - 1.30 ] EF Mod BP 63 % [ 54 - 74 ] MV A Peak Vel0.96 m/s [ 1.00 - 1.20 ] LV GLS -19.3 % [ -25.0 - -18.0 ] MV E/A1.2 ratio [ 0.8 - 1.5 ] LA Length 4C 6.3 cm MV Decel [id number] LA Length 2C 5.3 cm MV Decel [id number] msec [ 104 - 258 ] LA Volume BP 80 ml Med E` Vel11.9 cm/sec [ 8.0 - 25.0 ] LA Volume Index 34 ml/m2 [ 16 - 34 ] Lat E` Vel12.8 cm/sec [ 10.0 - 25.0 ] RV Base Dimen 2D 4.0 cm [ 2.5 - 4.2 ] Average E/E`10 TAPSE 2.4 cm [ 1.7 - 5.0 ] RV S`17.3 cm/sec RA Volume 66 ml TR Peak Vel2.3 m/s [ 1.0 - 2.8 ] RA Volume Index 28 ml/m2 TR Peak PG21 mmHg IVC Diam 0.5 cm PV Peak Vel1.4 m/s [ 0.4 - 0.8 ] IVC Collapse 57.0 % PV Peak PG8 mmHg AoR Diam 2D 2.9 cm [ 2.7 - 3.7 ] Ao Root Index 1.2 cm/m2 [ 1.0 - 2.0 ] Electronically Signed By: Guillermo Dobbins M.D. 12/16/2024 8:16:58 AM CDT us Murtaza Butt MD CV ECHO PROCEDURES Final Resul t * XR Hand Bilateral 3 or More Views of Each (12/14/2024 6:10 PM CDT) Anatomical Region Laterality Modality Upper Extremities, Hand Computed Radiography 12/15/2024 7:27 AM CDT Impressions 12/15/2024 7:27 AM CDT 1. Severe erosive changes of the bilateral radiocarpal joints, carpal bones, metacarpal and proximal phalangeal heads consistent with inflammatory arthritis and not significant changed compared to 2020. 2. Multiple large periarticular erosions within the metatarsal heads, also consistent with inflammatory arthritis. Electronically signed by: Ilia Robison M.D. [facility] 12/15/2024 7:27 AM CDT XR FOOT BILATERAL 2 VIEWS OF EACH, XR HAND BILATERAL 3 OR MORE VIEWS OF EACH HISTORY: Rheumatoid arthritis. FINDINGS: 3 views each of the bilateral hands and 2 views each of the bilateral feet are obtained. Hand radiographs are compared with 05/02/2020. Hands: There is unchanged severe radiocarpal joint space narrowing. There are multiple erosions of the carpal bones, metacarpal heads, and heads of proximal phalanges which are grossly unchanged. There is no fracture or dislocation. Mild soft tissue swelling. Feet: There are multiple large periarticular erosions of the metatarsal heads bilaterally. There is mild polyarticular midfoot osteoarthritis. There is no fracture. There is lateral deviation of the proximal phalanges. Mild forefoot soft tissue swelling. Procedure Note Ilia Robison MD - 12/15/2024 XR FOOT BILATERAL 2 VIEWS OF EACH, XR HAND BILATERAL 3 OR MORE VIEWS OF EACH HISTORY: Rheumatoid arthritis. FINDINGS: 3 views each of the bilateral hands and 2 views each of the bilateral feet are obtained. Hand radiographs are compared with 05/02/2020. Hands: There is unchanged severe radiocarpal joint space narrowing. There are multiple erosions of the carpal bones, metacarpal heads, and heads of proximal phalanges which are grossly unchanged. There is no fracture or dislocation. Mild soft tissue swelling. Feet: There are multiple large periarticular erosions of the metatarsal heads bilaterally. There is mild polyarticular midfoot osteoarthritis. There is no fracture. There is lateral deviation of the proximal phalanges. Mild forefoot soft tissue swelling. IMPRESSION: 1. Severe erosive changes of the bilateral radiocarpal joints, carpal bones, metacarpal and proximal phalangeal heads consistent with inflammatory arthritis and not significant changed compared to 2020. 2. Multiple large periarticular erosions within the metatarsal heads, also consistent with inflammatory arthritis. Electronically signed by: Ilia Robison M.D. us Gareth Rodriguez MD IMG XR PROCEDURES Final Result * XR Foot Bilateral 2 Views of Each (12/14/2024 6:10 PM CDT) Anatomical Region Laterality Modality Lower Extremities, Foot Computed Radiography 12/15/2024 7:27 AM CDT Impressions 12/15/2024 7:27 AM CDT 1. Severe erosive changes of the bilateral radiocarpal joints, carpal bones, metacarpal and proximal phalangeal heads consistent with inflammatory arthritis and not significant changed compared to 2020. 2. Multiple large periarticular erosions within the metatarsal heads, also consistent with inflammatory arthritis. Electronically signed by: Ilia Robison M.D. Narrative 12/15/2024 7:27 AM CDT XR FOOT BILATERAL 2 VIEWS OF EACH, XR HAND BILATERAL 3 OR MORE VIEWS OF EACH HISTORY: Rheumatoid arthritis. FINDINGS: 3 views each of the bilateral hands and 2 views each of the bilateral feet are obtained. Hand radiographs are compared with 05/02/2020. Hands: There is unchanged severe radiocarpal joint space narrowing. There are multiple erosions of the carpal bones, metacarpal heads, and heads of proximal phalanges which are grossly unchanged. There is no fracture or dislocation. Mild soft tissue swelling. Feet: There are multiple large periarticular erosions of the metatarsal heads bilaterally. There is mild polyarticular midfoot osteoarthritis. There is no fracture. There is lateral deviation of the proximal phalanges. Mild forefoot soft tissue swelling. Procedure Note Ilia Robison MD - 12/15/2024 XR FOOT BILATERAL 2 VIEWS OF EACH, XR HAND BILATERAL 3 OR MORE VIEWS OF EACH HISTORY: Rheumatoid arthritis. FINDINGS: 3 views each of the bilateral hands and 2 views each of the bilateral feet are obtained. Hand radiographs are compared with 05/02/2020. Hands: There is unchanged severe radiocarpal joint space narrowing. There are multiple erosions of the carpal bones, metacarpal heads, and heads of proximal phalanges which are grossly unchanged. There is no fracture or dislocation. Mild soft tissue swelling. Feet: There are multiple large periarticular erosions of the metatarsal heads bilaterally. There is mild polyarticular midfoot osteoarthritis. There is no fracture. There is lateral deviation of the proximal phalanges. Mild forefoot soft tissue swelling. IMPRESSION: 1. Severe erosive changes of the bilateral radiocarpal joints, carpal bones, metacarpal and proximal phalangeal heads consistent with inflammatory arthritis and not significant changed compared to 202. 2. Multiple large periarticular erosions within the metatarsal heads, also consistent with inflammatory arthritis. Electronically signed by: Ilia Robison M.D. us Gareth Rodriguez MD IMG XR PROCEDURES Final Result * eGFR (12/14/2024 5:36 PM CDT) eGFR 73 >=60 mL/min/1. 73 m2 Comment: Interpretive Data Reference Interval Normal >/= 90 mL/min/1.73m2 Mildly decreased* 60 - 89 mL/min/1.73m2 Mildly to moderately decreased 45 - 59 mL/min/1.73m2 Moderately to severely decreased 30 - 44 mL/min/1.73m2 Severely decreased 15 - 29 mL/min/1.73m2 Kidney Failure < 15 mL/min/1.73m2 *Relative to young adult level Estimated glomerular filtration rate is determined by the 2020 CKD-EPI equation recommended by the National [employer] (A Unifying Approach to GFR Estimation: Recommendations of the NKF-ASK Task Force on Reassessing the Inclusion of Race in Diagnosing Kidney Disease, JASN 2020). The CKD-EPI equation should not be used for patients with unstable renal function and has not been validated in children and those over 70. Current interpretive data was last reviewed 2021. Blood 12/14/2024 5:36 PM CDT 12/14/2024 7:47 PM CDT Robert Winkler MD LAB BLOOD ORDERABLES F inal Result [facility] Department [place] [address] * Differential, auto (12/14/2024 5:36 PM CDT) Neutrophil abs 2.02 1.50 - 6.50 K/cumm Imm gran abs 0.01 0.00 - 0.10 K/cumm [facility] Lymphocyte abs 2.77 0.80 - 3.30 K/cumm [facility] Monocyte abs 0.44 0.20 - 0.80 K/cumm [facility] Eosinophil abs 0.00 0.00 - 0.50 K/cumm [facility] Basophil abs 0.02 0.00 - 0.10 K/cumm [facility] Neutrophil pct 38.3 % [facility] Comment: Interpretive Data Percent cell count reference ranges are not reported, since discordance with absolute values may lead to misinterpretation of CBC data. Current Interpretive Data was last revised on 2017. Imm gran pct 0.2 % [facility] Comment: Interpretive Data Percent cell count reference ranges are not reported, since discordance with absolute values may lead to misinterpretation of CBC data. Current Interpretive Data was last revised on 2017. Lymphocyte pct 52.7 % [facility] Comment: Interpretive Data Percent cell count reference ranges are not reported, since discordance with absolute values may lead to misinterpretation of CBC data. Current Interpretive Data was last revised on 2017. Monocyte pct 8.4 % [facility] Comment: Interpretive Data Percent cell count reference ranges are not reported, since discordance with absolute values may lead to misinterpretation of CBC data. Current Interpretive Data was last revised on 2017. Eosinophil pct 0.0 % [facility] Comment: Interpretive Data Percent cell count reference ranges are not reported, since discordance with absolute values may lead to misinterpretation of CBC data. Current Interpretive Data was last revised on 2017. Basophil pct 0.4 % [facility] Comment: Interpretive Data Percent cell count reference ranges are not reported, since discordance with absolute values may lead to misinterpretation of CBC data. Current Interpretive Data was last revised on 2017. Blood 12/14/2024 5:36 PM CDT 12/14/2024 7:43 PM CDT Robert Winkler MD LAB BLOOD ORDERABLES F inal Result Performing Organization Address [facility] Co de Phone Number [facility] Department [place] [address] * (ABNORMAL) Iron profile w/ IBC (12/14/2024 5:36 PM CDT) [facility] [address] Iron 73 35 - 145 mcg/dL TIBC 388 250 - 400 mcg/dL [facility] Transferrin saturation 19(L) 20 - 50 % [facility] Blood 12/14/2024 5:36 PM CDT 12/14/2024 7:43 PM CDT Robert Winkler MD LAB BLOOD ORDERABLES F inal Result Performing Organization Address [facility] de Phone Number [facility] Department [place] [address] * (ABNORMAL) CBC with auto differential (12/14/2024 5:36 PM CDT) [facility] [address] WBC 5.26 3.80 - 9.90 K/cumm Hgb 9.0(L) 11.9 - 15.5 g/dL [facility] Hct 28.3(L) 35.6 - 45.5 % [facility] Plt 291 150 - 400 K/cumm [facility] MPV 12.2 9.1 - 12.3 fL [facility] RBC 3.70(L) 3.90 - 5.20 M/cumm [facility] MCV 76.5(L) 81.3 - 96.4 fL [facility] MCH 24.3(L) 27.1 - 33.3 pg [facility] MCHC 31.8(L) 32.3 - 35.7 g/dL [facility] RDW CV 16.1(H) 11.1 - 14.9 % [facility] RDW SD 45.1 35.7 - 48.1 fL [facility] NRBC abs 0.00 0.00 - 0.01 K/cumm [facility] Blood 12/14/2024 5:36 PM CDT 12/14/2024 7:43 PM CDT Robert Winkler MD LAB BLOOD ORDERABLES F inal Result Performing Organization Address [facility] de Phone Number [facility] [place] [address] * Protime-INR (12/14/2024 5:36 PM CDT) PT 12.6 10.2 - 13.5 sec INR 1.12 0.90 - 1.20 [facility] Comment: Interpretive data Oral anticoagulant therapeutic ranges: Venous thromboembolism prophylaxis or treatment: 2.0-3.0 CARDIOLOGY Standard range: 2.0-3.0 High-intensity range: 2.5-3.5 Refer to indication-specific guidelines for appropriate target ranges for prosthetic heart valve replacement. Current interpretive data was last revised on 2019. Blood 12/14/2024 5:36 PM CDT 12/14/2024 7:43 PM CDT Robert Winkler MD LAB BLOOD ORDERABLES F inal Result Performing Organization Address [facility] Co de Phone Number [facility] Department [place] [address] * Ferritin (12/14/2024 5:36 PM CDT) Ferritin 38 13 - 150 ng/mL Blood 12/14/2024 5:36 PM CDT 12/14/2024 7:43 PM CDT Robert Winkler MD LAB BLOOD ORDERABLES F inal Result Performing Organization Address [facility]/ZIP Co de Phone Number [facility] Department [place] [address] * (ABNORMAL) Comprehensive metabolic panel (12/14/2024 5:36 PM CDT) Sodium 137 135 - 145 mmol/L Potassium, pl 4.3 3.3 - 4.9 mmol/L [facility] Chloride 105 97 - 110 mmol/L [facility] CO2 22 22 - 32 mmol/L [facility] Anion gap 10 2 - 15 mmol/L [facility] BUN 21 6 - 25 mg/dL [facility] Creatinine 0.99 0.60 - 1.10 mg/dL [facility] Glucose 123 70 - 199 mg/dL [facility] Comment: Interpretive Data Fasting glucose >/= 126 mg/dl is diagnostic for diabetes. Fasting is defined as no caloric intake for at least 8 hours. Fasting glucose between 100 mg/dl to 125 mg/dl is diagnostic of prediabetes. In a patient with classic symptoms of hyperglycemia or hyperglycemic crisis, a random glucose >/= 200 mg/dl is diagnostic for diabetes. In the absence of unequivocal hyperglycemia, results should be confirmed by repeat testing. The classification and Diagnosis of Diabetes Diabetes Care 2021; 46: S19-S40. Current interpretive data was last revised 2022. Calcium 9.1 8.5 - 10.3 mg/dL [facility] Bilirubin, total 3.7(H) 0.1 - 1.2 mg/dL [facility] Protein, pl 6.8 6.5 - 8.5 g/dL [facility] Albumin 3.9 3.5 - 5.0 g/dL [facility] Alk phos 340(H) 40 - 130 Units/L [facility] ALT 45 7 - 45 Units/L [facility] AST 71(H) 10 - 45 Units/L [facility] Blood 12/14/2024 5:36 PM CDT 12/14/2024 7:43 PM CDT Robert Winkler MD LAB BLOOD ORDERABLES F inal Result [facility] Department [place] [address] * Hepatitis C antibody Blood (09/15/2024 9:40 AM CDT) Hep C Ab Nonreactive Nonreactive Comment:Antibodies to HCV no t detected. Does NOT exclude the possibility of recent exposure to HCV. Current interpretive data was last revised on 21 Blood 09/15/2024 9:40 AM CDT 09/15/2024 10:30 AM CDT Narrative [facility] - 09/15/2024 11:24 AM CDT Please add the following comment to each lab: This lab is being obtained as part of a liver transplant evaluation, is time sensitive, and should only be drawn during the evaluation visit at [facility] 3C Lab. Robert Winkler MD LAB MICROBIOLOGY - GEN ERAL ORDERABLES Final Result Performing Organization Address City/State/[facility] Co de Phone Number [facility] Department [place] [address] from Last 3 Months or Most Recently Relevant to Health Maintenance Insurance [facility] Advance Directives For more information, please contact: [phone] * Full Code (Latest Code Status on File) Date Activated Date Inactivated Comments 08/31/2023 8:54 PM 09/06/2023 10:39 PM * Full Code Date Activated Date Inactivated Comments 05/24/2021 11:52 AM 05/25/2021 4:40 AM * Full Code Date Activated Date Inactivated Comments 01/27/2020 10:22 AM 01/28/2020 4:56 AM Care Teams Bobbin Cleaning Machine Operator Relationship Specialty Start Date End Date Yari Wu MD PCP - General Family Medicine 06/11/19 Early, Leah Lin MD [address] [place] [address] Referring Physician Gastroenterology 06/13/22 Robert Winkler MD [id number] [place] [address] Referring Physician Transplant Hepatology 06/21/22 Dedrick Kim MD PhD [address] [place] [address] Referring Physician Allergy and Immunology 06/19/23 Johnna Walls, BRITTANY [address] [facility] [address] [place] [address] Multiskill Operator 08/10/24
--- OUTSIDE RECORDS SUMMARY | 2025-02-26 23:57 | XMS_ITS | Encounter Summary ---
Author Organization [facility] Address [address] [place] [address] Phone Care Team Providers Care Cell Phone Repair Technician Name Role Phone Yari Wu MD Primary Care Prov ider Leah Moran MD Unavailable [phone] Robert Winkler MD Unavailable [phone] Dedrick Kim MD PhD Unavailable [phone] Johnna Walls RN Unavailable [phone] Encounter Details Date Type Department Care Team (Latest Contact Info) Description 02/18/2025 Results Follow-Up [facility] Medicine Allergy and Immunology [address] [place] [phone] Adithya Ferrari MD [address] [place] [address] Miscellaneous Test Sendout Chemistry Social History Tobacco Use Types Packs/Day Years Used Date Smoking Tobacco: Never Smokeless Tobacco: Never Social Connection and Isolation Panel Answer Date Recorded In a typical week, how many times do you talk on the phone with family, friends, or neighbors? More than three times a week 09/09/2023 How often do you get togethe r with friends or relatives? More than three times a week 09/09/2023 How often do you attend [facility] or buddhist services? Patient declined 09/09/2023 Do you belong to any clubs o r organizations such as denominational groups, unions, fraternal or athletic groups, or [...] any time in the past 12 m [facility], were you homeless or living in a mcfp (including now)? No 09/09/2023 Social Connection and Isolation Panel Answer Date Recorded In a typical week, how many times do you talk on the phone with family, friends, or neighbors? More than three times a week 01/22/2025 How often do you get togethe r with friends or relatives? More than three times a week 01/22/2025 How often do you attend [facility] or buddhist services? Never 01/22/2025 Do you belong to any clubs o r organizations such as denominational groups, unions, fraternal or athletic groups, or [...] any time in the past 12 m [facility], were you homeless or living in a mcfp (including now)? No 01/22/2025 [facility] Utilities Answer Date Recorded In the past [...] on file Legal Sex Female 7:24 AM DIRECTOR OF ORTHOPEDICS Gender Identity Not on file Sexual Orientation Not on file documented as of this encounter Plan of Treatment Upcoming Encounters Date Type Department Care Team (Latest Contact Info) Description 03/11/2025 12:15 PM DIRECTOR OF ORTHOPEDICS Hospital Encounter [facility] Operating Room [address] [place] [address] Jay Desouza MD [address] [address] 03/11/2025 12:15 PM DIRECTOR OF ORTHOPEDICS - 03/11/2025 1:20 PM DIRECTOR OF ORTHOPEDICS Surgery [facility] Operating Room [address] [place] [address] Jay Desouza MD [address] [address] LARYNGOSCOPY W BIOPSIES Scheduled Procedures Name Priority Associated Diagnoses Date/Ti me LARYNGOSCOPY PROCEDURE Chronic laryngitis 03/11/2025 12:15 PM DIRECTOR OF ORTHOPEDICS TRANSPLANT LIVER Encounter for pre-transplant evaluation for liver transplant Autoimmune hepatitis (HCC) documented as of this encounter Visit Diagnoses Not on filedocumented in this encounter Care Teams Cell Phone Repair Technician Relationship Specialty Start Date End Date Yari Wu MD PCP - General Family Medicine 06/11/19 Leah Moran MD [address] [place] [address] Referring Physician Gastroenterology 06/13/22 Robert Winkler MD [address] [facility] [address] [place] [address] Referring Physician Transplant Hepatology 06/21/22 Dedrick Kim MD PhD [facility] [address] [place] [address] Referring Physician Allergy and Immunology 06/19/23 Johnna Walls, RN [address] [facility] [address] [place], [place] [id number] Restaurant Area Manager 08/10/24 documented as of this encounter
--- OUTSIDE RECORDS SUMMARY | 2025-02-26 23:57 | XMS_ITS | Encounter Summary ---
Author Organization [facility] Address [address] [place] [address] Phone Care Team Providers Care First Dyer Name Role Phone Yari Wu MD Primary Care Prov ider Leah Moran MD Unavailable [phone] Robert Winkler MD Unavailable [phone] Dedrick Kim MD PhD Unavailable [phone] Johnna Walls RN Unavailable [phone] Cheryl Owusu RN Unavailable [phone] Encounter Details Date Type Department Care Team (Late st Contact Info) Description 01/28/2025 Results Follow-Up [facility] Medicine Allergy and Immunology [address] [facility] [address] [place] [address] Adithya Ferrari MD [address] [place] [address] BLOOD [facility] [place] Social History Tobacco Use Types Packs/Day Years [...] often do you attend chur ch or voodoo services? Patient declined 09/09/2023 Do you belong to any clubs o r organizations such as presybeterian groups, unions, fraternal or athletic groups, or [...] any time in the past 12 m [facility], were you homeless or living in a fpc (including now)? No 09/09/2023 Social Connection and Isolation Panel Answer Date Recorded In a typical week, how many times do you talk on the phone with family, friends, or neighbors? More than three times a week 01/22/2025 How often do you get togethe r with friends or relatives? More than three times a week 01/22/2025 How often do you attend chur ch or voodoo services? Never 01/22/2025 Do you belong to any clubs o r organizations such as presybeterian groups, unions, fraternal or athletic groups, or [...] any time in the past 12 m [facility], were you homeless or living in a fpc (including now)? No 01/22/2025 [facility] Utilities Answer Date Recorded In the past [...] on file Legal Sex Female 7:24 AM PIPE [employer] SAWYER Gender Identity Not on file Sexual Orientation Not on file documented as of this encounter Plan of Treatment Upcoming Encounters Date Type Department Care Team (Latest Contact Info) Description 03/11/2025 12:15 PM P[employer] SAW[employer]ER Hospital Encounter [facility] Operating Room [address] [place] [address] Jay Desouza MD [address] [address] 03/11/2025 12:15 PM P[employer] SAWYER - 03/11/2025 1:20 PM P[employer] SAW[employer]ER Surgery [facility] Operating Room [address] [place] [address] Jay Desouza MD [address] [address] LARYNGOSCOPY W BIOPSIES Scheduled Procedures Name Priority Associated Diagnoses Date/Ti in LARYNGOSCOPY PROCEDURE Chronic laryngitis 03/11/2025 12:15 PM PIPE [employer] SAWYER TRANSPLANT LIVER Encounter for pre-transplant evaluation for liver transplant Autoimmune hepatitis (HCC) documented as of this encounter Visit Diagnoses Not on filedocumented in this encounter Care Teams First Dyer Relationship Specialty Start Date End Date Yari Wu MD PCP - General Family Medicine 06/11/19 Leah Moran MD [address] [place] [address] Referring Physician Gastroenterology 06/13/22 Robert Winkler MD 1 [facility] [address] [place] [address] Referring Physician Transplant Hepatology 06/21/22 Dedrick Kim MD PhD [address] [facility] [address] [place] [address] Referring Physician Allergy and Immunology 06/19/23 Johnna Walls RN [address] [facility] [address] [place] [address] Interior Design Program Chair 08/10/24 Cheryl Owusu RN [address] [facility] [address] [place], [place] [id number] SHOP Outpatient Sql Bi Developer 01/22/25 02/03/25 documented as of this encounter
--- OUTSIDE RECORDS SUMMARY | 2025-02-26 23:58 | XMS_ITS | Clinical Summary ---
Author Organization [facility] Address [facility] [place] [address] Care Team Providers Care Domestic Violence Counselor Name Role Phone Unavailable Primary Care Provider Unavailabl e Social History Tobacco Use Types Packs/Day Years Used Date Smoking Tobacco: Never Assessed Comments Unknown Sex and Gender Information Value Date Recorded Sex Assigned at Not on file Legal Sex Female 4:06 PM CDT Gender Identity Not on file Sexual Orientation Not on file Plan of Treatment Health Maintenance Due Date Last Done Comments Cervical Cancer Screening Pa p Smear (Age 30 to 64) Every 3 Years 1982 Annual Physical 1985 Hepatitis C 02/08/2000 DTaP, Tdap and Td Vaccines ( 1 - Tdap) 2001 Hepatitis B Vaccines (1 of 3 - 19+ 3-dose series) 2001 HPV Vaccines (1 - 3-dose SCD M series) 2009 Cervical Cancer Screening Pa p with HPV Testing (Age 30 to 64) Every 5 Years 02/08/2012 Cervical Cancer Screening with HPV 02/08/2012 Mammogram Screening 2022 COVID-19 Vaccine ( - 2024-2 6 season) 2024 Influenza Adult (#1) 2024 Hepatitis A Vaccines Aged Out No long er eligible based on patient's age to complete this topic Meningococcal B Vaccine Aged Out No l onger eligible based on patient's age to complete this topic Meningococcal Vaccine Aged Out No rei stu eligible based on patient's age to complete this topic Pneumococcal Vaccine: Pediat rics (0 to 5 Years) and At-Risk Patients (6 to 49 Years) Aged Out No longer eligible b ased on patient's age to complete this topic RSV Immunizations Under 20 Months Aged Out No longer eligible based on patient's age to complete this topic
--- OUTSIDE RECORDS SUMMARY | 2025-02-26 23:58 | XMS_ITS | Clinical Summary ---
Author Organization [facility] Address [address] [place] [address] Care Team Providers Care Clothes Ironer Name Role Phone Yari Wu MD Primary Care Provider + Source Comments [facility],non-owned Affiliates and Associated Physician Practices is amultiple site organization consisting of ambulatory clinics and hospital sitesin [place], [place], [place] and [place]. This disclosure is being madepursuant to the Care Everywhere program and may not contain all information available regarding this patient. Last updated 17.[facility] Allergies Active Allergy Reactions Criticality Noted Date Comments Infliximab Itching,Other,Rash Medium 03/10/2015 rigors Penicillins Other,Rash Medium 11/10/2014 Fever Sulfa Drugs Other,Rash Medium 11/10/2014 Fever Medications * Be aware that medications may not be up to date on this document. Alwaysverify current medications with the patient. fluticasone propionate (FLONASE) 50 MCG/ACT nasal spray [place] 1 spray into the nose 2 times daily 7 Active Calcium Citrate-Vitamin D (CALCIUM + D PO) Take 1 tablet by mouth once daily Active triamcinolone acetonide (KENALOG) 0.1 % ointment triamcinolone acetonide 0.1 % topical ointment Active venlafaxine XR 24hr (EFFEXOR XR) 150 MG capsule Take 25 mg by mouth once daily Active albuterol HFA (PROVENTIL HFA) 108 (90 BASE) MCG/ACT inhaler Inhale 2 puff(s) every 4 hours by inhalation route. Active melatonin 5 MG tablet Take 1 tablet by mouth at bedtime 90 tablet 3 9 Active loratadine (CLARITIN) 10 MG tabletIndicatio ns:Allergic rhinitis, unspecified seasonality, unspecified trigger Take 1 tablet by mouth once daily 90 tablet 3 9 Active famotidine (PEPCID) 20 MG tablet Take 20 mg by mouth 2 times daily Active polyethylene glycol 3350 (MIRALAX) 17 GM/SCOOP powder DIS 17 GRAMS IN LIQUID AND DRINK PO QD PRN 0 Active tofacitinib 24hr (XELJANZ XR) 11 MG tablet Take 1 tablet by mouth once daily 30 tablet 4 0 Active diclofenac sodium EC (VOLTAREN) 75 MG tabletIndicatio ns:Rheumatoid arthritis involving multiple sites with positive rheumatoid factor (HCC) Take 1 (one) tablet by mouth 2 times daily 60 tablet 1 Active Active Problems Problem Noted Date Diagnosed Date Vitamin D deficiency 04/25/2018 Iron deficiency 04/25/2018 Depression 03/20/2018 Psoriasis 03/20/2018 Rheumatoid arthritis involvi ng multiple sites with positive rheumatoid factor 11/11/2017 Encounter for long-term (cur rent) use of high-risk medication 11/11/2017 Gastroesophageal reflux disease 10/07/2017 Obesity 03/23/2016 Keratosis pilaris 12/07/2015 Elevated liver enzymes 07/22/2015 Overview (11/25/2019): Overview: 02/2015 AP 75, ALT 24, AST 10 [...] stone in GB, splenomegaly, mild adenopathy throughout 05/05/19 ALT 190, AST 123, AP 388, t bili 0.8 05/23/19 MRI: Non-specific sub-centimeter liver lesion, splenomegaly and non- specific adenopathy, repeat imaging in 1 yr 06/03/19 ALT 164, AST 89, AP 204, t bili 0.80 ELVIA (obstructive sleep apnea) 07/22/2015 Overview (03/20/2018): Overview: Doesn't tolerate CPAP well due to nasal congestion. 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 (F LUZONE; FLULAVAL; FLUARIX; AFLURIA QUADRIVALENT; 6MO+), 0.5 ML (IIV4) 12/06/2014 Pneumococcal Pcv13 Conj 06/27/2017 Family History Medical History Relation Name Comments Diabetes - Type 2 Brother 1 Koby Hypertension Brother 1 Koby in the past Allergic Rhinitis Father 60 Anxiety Disorder Maternal Grandmother Depression Maternal Grandmother Anxiety Disorder Mother 57 Asthma Mother 57 Depression Mother 57 Diabetes - Type 2 Mother 57 Other - Cardiac Mother 57 heart murmur Other - Musculoskeletal Mother 57 fibr omyalgia Sleep Disorder - Other Mother 57 elvia, cpap Arthritis - Rheumatoid Other aunt-dad COPD - Chronic Obstructive P ulmonary Disease Paternal Grandfather smoked Arthritis - Rheumatoid Paternal Grandmother Psoriasis Paternal Grandmother Relation Name Status Comments Brother 1 Koby Alive Brother 2 Juvenal Alive Father 60 Alive Maternal Grandmother Mother 57 Alive Other aunt-dad Alive paternal aunt Paternal Grandfather Paternal Grandmother Social History Tobacco Use Types Packs/Day Years Used Date Smoking Tobacco: Never Smokeless Tobacco: Never Tobacco Cessation:Counseling Given: No Alcohol Use Standard Drinks/Week Comments Yes 0 (1 standard drink = 0.6 oz pur e alcohol) 2-3x/yr usually wine Comments No Sex and Gender Information Value Date Recorded Sex Assigned at Not on file Legal Sex Female 4:25 AM CDT Gender Identity Not on file Sexual Orientation Not on file Occupation Industry Job Start Date Job End Date 2007 Not on file Not on file Not on file Last Filed Vital Signs Vital Sign Reading Time Taken Comments Blood Pressure 130/80 07/07/2018 4:17 PM CDT Pulse 78 07/07/2018 4:17 PM CDT Temperature 36.9 C (98.4 F) 07/07/2018 4:17 PM CDT Respiratory Rate 16 04/10/2018 9:24 AM CLOTHER IN Oxygen Saturation 97% 07/07/2018 4:17 PM CDT Inhaled Oxygen Concentration - - Weight 133.8 kg (295 lb) 05/23/2019 10:03 AM CDT Height 172.7 cm (5' 8) 05/23/2019 10:03 AM CDT Body Mass Index 44.85 05/23/2019 10:03 AM CDT Plan of Treatment Health Maintenance Due Date Last Done Comments LIPID TESTING 1982 MAMMOGRAM 1982 HIV SCREENING 1997 DTAP/TDAP/TD VACCINES (1 - Tdap) 2001 HPV VACCINE (1 - 3-dose SCDM series) 2009 HEPATITIS B VACCINE (3 of 3 - Hep B Twinrix 3-dose series) 09/26/2017 04/29/2017, 03/29/2017 DEPRESSION SCREENING 03/04/2024 COVID-19 VACCINE ( - season) 2024 INFLUENZA VACCINE (#1) 2024 9, 2018, 12/26/2016, Additional history exists ZOSTER VACCINE (1 of 2) 02/08/2032 HEPATITIS C SCREENING Completed 08/11/2015, 015 PNEUMOCOCCAL VACCINE Aged Out 06/27/2017 No long er eligible based on patient's age to complete this topic HIB VACCINE Aged Out No longer eligi ble based on patient's age to complete this topic MENINGOCOCCAL (Group B) VACCINE SHARED DECISION-MAKING Aged Out No longer eligible based on patient's age to complete this topic MENINGOCOCCAL GROUPS A/C/Y/W VACCINE Aged Out No longer eligible based on patient's age to complete this topic Procedures Procedure Name Priority Date/Time Associated Diagnosis Comments HEPATITIS C AB W/RFLX TO HCV RNA QN PCR Routine 08/11/2015 1:16 PM CDT from Last 3 Months or Most Recently Relevant to Health Maintenance Results * HEPATITIS C AB W/RFLX TO HCV RNA QN PCR (08/11/2015 1:16 PM CDT) Hepatitis C Antibody NON-REACTI VE NON-REACT [facility] Signal/Cutoff 0.02 <1.00 [facility] Comment: Test Performed at: [facility] [id number] [place] [address] MILDRED SMITH DO,MPH 08/11/2015 1:16 PM CDT 08/11/2015 1:17 PM CDT Shasta Cerrato PA-C LAB - CHEMISTRY ORDERABLE S Final Result [facility]) [id number] from Last 3 Months or Most Recently Relevant to Health Maintenance Insurance [facility] MEDICAID - [place] Care Teams Clothes Ironer Relationship Specialty Start Date End Date Yari Wu MD PCP - General 06/19/17 Agatha Garza [address] [place] [id number] Traffic Division Commanding Officer Rheumatology 10/21/19
--- OUTSIDE RECORDS SUMMARY | 2025-02-26 23:58 | XMS_ITS | Data Portability ---
Author Organization [place] - [facility] [place], Main Office Address [address] [place] [address] Assessment Encounter Date Assessment Date Assessment LastModified by Organization Details LastModified Time 06/21/2022 06/21/2022 Assessment: RA on Rituxan every 6 months (last dose 09/2021) Hypogammaglobuline benji (low total IgG, IgG1, IgG2, IgG4) 5-lobe pneumonia vs RA lung disease vs drug toxicity RML/RLL bronchiectasis Postnasal drip Resting tachycardia Plan: The following were reviewed and explained to the patient: [facility] 03/15/22 -03/20/22 IV Levaquin, IV vancomycin, IV Solu-Medrol, IV remdesivir 6MW 03/22/22 1 Lpm exertional O2 Chest CT 03/15/22 5-lobe pneumonia, RML/RLL bronchiectasis Chest CT 03/29/22 improving bilateral GGO compared with 03/15/22 Lab data 03/22/22 low total IgG, IgG1, IgG2, IgG4 Sputum culture 03/30/22 nl resp brian Sputum fungal stain 03/30/22 no fungus 2-D echocardiogram 03/30/22 mild LVH, EF 61%, mild RVE Blood cultures 04/10/[address] Dedrick Lindsay heel cementer machine note 05/08/22 received PPSV23, check gG, IgA, IgM, PPSV23 titers PFT 05/03/20 nl FEV1/FVC, FEV1 3.55 L (101%), TLC 5.70 L (100%), DLCO 81% PFT 03/29/22 nl FEV1/FVC, FEV1 3.05 L (97%), TLC 4.84 L (83%), DLCO 31%, DLCO/VA 55% Methacholine challenge testing 06/21/22 Patient is cleared for contemplated laparoscopic cholecystectomy under general anesthesia from pulmonary standpoint. Patient will see [facility] cardiology service tomorrow 05/22/22 for further evaluation of abnormal echocardiogram and resting tachycardia. Start Atrovent nasal spray 0.06% 1 spray to each nostril up to 4 times a day for postnasal drip. Patient will continue in SmartVest Airway Clearance System as the handheld flutter valve oscillatory mucus removal device is not effective. Follow up with Dr. Dedrick Lindsay heel cementer machine for possible IgG treatment of hypogammaglobuline benji. Advised to continue not to smoke. Discontinue Spiriva Respimat 1.25 mcg 2 puffs daily. Continue Ventolin HFA as needed for bronchitic episodes. The patient does not know how to accurately administer the inhaler. Today, the patient was shown how to take this medication. The proper technique for delivering this medication was instructed. The patient expressed a clear understanding and demonstrated back how to use this medication. Without the proper technique, the patient will not reap the benefits of the treatment as the contents of the inhaler will not reach the lower airways as intended to be. Adherence to therapy is advocated. Nonadherence may lead to treatment failure, further progression of the condition, and other complications. Hospitals admissions are often the result of individuals not taking prescription medications accurately. Alternatively, greater adherence to medication regimens have shown to lower rates of hospitalization and decrease total medical costs in patients with chronic medical conditions. Advocated influenza vaccination annually and pneumonia vaccination MIGUEL. Advocated weight loss through diet and exercise. Patient's ideal body weight according to height and gender is up to 150 lbs. Encouraged patient to adjust caloric intake to maintain/achieve ideal body weight, emphasizing on fruits, vegetables, whole grains, and fat-free or low-fat products. These include lean meats, poultry, fish, beans, eggs, and nuts and foods that are low in saturated fats, trans-fats, cholesterol, salt (sodium), and glycemic index. Stressed the importance of regular exercise up to the patient's capacity limits. In this case, we recommend 20 min daily walking, 2 days a week of resistance training. Patient to monitor BP daily and bring records to PCP for further management. Follow-up: 3 months, September 2022 [email or web address] Not available 06/21/2022 17:13:24 09/13/2022 09/13/2022 Assessment: RA on Rituxan every 6 months (last dose 09/2021) Hypogammaglobuline benji (low total IgG, IgG1, IgG2, IgG4) c/o Dr. Dedrick Lindsay RML/RLL bronchiectasis RUL, RML, LLL lung cysts Postnasal drip Mod OSAHS Sinus tachycardia Plan: The following were reviewed and explained to the patient: [facility] 03/15/22 -03/20/22 IV Levaquin, IV vancomycin, IV Solu-Medrol, IV remdesivir 6MW 03/22/22 1 Lpm exertional O2 Chest CT 03/15/22 5-lobe pneumonia, RML/RLL bronchiectasis Chest CT 03/29/22 improving bilateral GGO compared with 03/15/22 Lab data 03/22/22 low total IgG, IgG1, IgG2, IgG4 Sputum culture 03/30/22 nl resp brian Sputum fungal stain 03/30/22 no fungus 2-D echocardiogram 03/30/22 mild LVH, EF 61%, mild RVE Blood cultures 04/10/[address] Dedrick Lindsay heel cementer machine note 05/08/22 received PPSV23, check gG, IgA, IgM, PPSV23 titers PFT 05/03/20 nl FEV1/FVC, FEV1 3.55 L (101%), TLC 5.70 L (100%), DLCO 81% PFT 03/29/22 nl FEV1/FVC, FEV1 3.05 L (97%), TLC 4.84 L (83%), DLCO 31%, DLCO/VA 55% Methacholine challenge testing 06/21/22 Dr. Betsy Lindsay note 07/02/22 CVID to be on IVIG/SCIG Chest CT 08/25/22 pneumonia resolved, RML/RLL bronchiectasis, RUL, RML, LLL lung cysts, borderline splenomegaly [facility] home sleep study 08/23/22 AHI = 17, supine AHI = 32 Atrovent nasal spray 0.06% is no longer formulary. Start fluticasone propionate nasal spray 1 spray to each nostril BID. Patient will continue in SmartVest Airway Clearance System as the handheld flutter valve oscillatory mucus removal device is not effective. Advised to continue not to smoke. Continue Ventolin HFA as needed for bronchitic episodes. The patient does not know how to accurately administer the inhaler. Today, the patient was shown how to take this medication. The proper technique for delivering this medication was instructed. The patient expressed a clear understanding and demonstrated back how to use this medication. Without the proper technique, the patient will not reap the benefits of the treatment as the contents of the inhaler will not reach the lower airways as intended to be. Adherence to therapy is advocated. Nonadherence may lead to treatment failure, further progression of the condition, and other complications. Hospitals admissions are often the result of individuals not taking prescription medications accurately. Alternatively, greater adherence to medication regimens have shown to lower rates of hospitalization and decrease total medical costs in patients with chronic medical conditions. General information on sleep disordered breathing, evaluation of sleep disordered breathing, treatment with PAP therapy, and living with PAP therapy were covered. PSG is medically necessary to determine the management of sleep apnea. We discussed with the patient the impact of weight on: Sleep disordered breathing GABRIELE We discussed with the patient the benefit of PAP therapy on: Sleep disordered breathing Depression Rhinitis Mild RVE GABRIELE Educated the patient on sleep hygiene measures. Relaxing rituals to rest easy, understanding foods with positive and negative impact on sleep, creating a peaceful sleep environment, timing of exercise, using herbal sleep aids, and practicing sleep-friendly meditation were covered. To determine how much sleep is needed, the patient will assess where she falls on the spectrum, examine what lifestyle factor such as stress is affecting the quality and quantity of sleep. In general, adults need 7-9 hours of sleep. Educated the patient regarding foods that promote sleep. These include but are not limited to cherries, bananas, toast, oatmeal, and warm milk. Educated the patient regarding foods and drinks to avoid before bedtime. These include but are not limited to aged cheese, chocolate, spicy foods, tomato-based sauces, soy, ginseng tea and processed meat. Advocated influenza vaccination annually and pneumonia vaccination MIGUEL. Advocated weight loss through diet and exercise. Patient's ideal body weight according to height and gender is up to 150 lbs. Encouraged patient to adjust caloric intake to maintain/achieve ideal body weight, emphasizing on fruits, vegetables, whole grains, and fat-free or low-fat products. These include lean meats, poultry, fish, beans, eggs, and nuts and foods that are low in saturated fats, trans-fats, cholesterol, salt (sodium), and glycemic index. Stressed the importance of regular exercise up to the patient's capacity limits. In this case, we recommend 20 min daily walking, 2 days a week of resistance training. Patient to monitor BP daily and bring records to PCP for further management. Follow-up: 1 week after titration sleep study Not available 10/15/2022 11:46:49 11/19/2022 11/19/2022 Assessment: RA on Rituxan every 6 months (last dose 09/2021) Hypogammaglobuline benji (low total IgG, IgG1, IgG2, IgG4) c/o Dr. Dedrick Lindsay RML/RLL bronchiectasis RUL, RML, LLL lung cysts Postnasal drip Mod OSAHS, AHI = 17 Plan: The following were reviewed and explained to the patient: [facility] 03/15/22 -03/20/22 IV Levaquin, IV vancomycin, IV Solu-Medrol, IV remdesivir 6MW 03/22/22 1 Lpm exertional O2 Chest CT 03/15/22 5-lobe pneumonia, RML/RLL bronchiectasis Chest CT 03/29/22 improving bilateral GGO compared with 03/15/22 Lab data 03/22/22 low total IgG, IgG1, IgG2, IgG4 Sputum culture 03/30/22 nl resp brian Sputum fungal stain 03/30/22 no fungus 2-D echocardiogram 03/30/22 mild LVH, EF 61%, mild RVE Blood cultures 04/10/[address] Dedrick Lindsay heel cementer machine note 05/08/22 received PPSV23, check gG, IgA, IgM, PPSV23 titers PFT 05/03/20 nl FEV1/FVC, FEV1 3.55 L (101%), TLC 5.70 L (100%), DLCO 81% PFT 03/29/22 nl FEV1/FVC, FEV1 3.05 L (97%), TLC 4.84 L (83%), DLCO 31%, DLCO/VA 55% Methacholine challenge testing 06/21/[address] Betsy Lindsay note 07/02/22 CVID to be on IVIG/SCIG Chest CT 08/25/22 pneumonia resolved, RML/RLL bronchiectasis, RUL, RML, LLL lung cysts, borderline splenomegaly [facility] home sleep study 08/23/22 AHI = 17, supine AHI = 32 [facility] titration sleep study 10/31/22 Respironics small DreamWear nasal mask @ 5-6 cmH2O Continue Atrovent nasal spray 0.06% 1 spray to each nostril up to 4 times a day. Patient will continue in SmartVest Airway Clearance System as the handheld flutter valve oscillatory mucus removal device is not effective. Advised to continue not to smoke. Continue Ventolin HFA as needed for bronchitic episodes. The patient does not know how to accurately administer the inhaler. Today, the patient was shown how to take this medication. The proper technique for delivering this medication was instructed. The patient expressed a clear understanding and demonstrated back how to use this medication. Without the proper technique, the patient will not reap the benefits of the treatment as the contents of the inhaler will not reach the lower airways as intended to be. Adherence to therapy is advocated. Nonadherence may lead to treatment failure, further progression of the condition, and other complications. Hospitals admissions are often the result of individuals not taking prescription medications accurately. Alternatively, greater adherence to medication regimens have shown to lower rates of hospitalization and decrease total medical costs in patients with chronic medical conditions. Educated the patient on problems and solutions associated with positive airway pressure (PAP) use. Difficulty tolerating pressure, mask leaks, intolerance of interface, nasal congestion, claustrophobic response, dry mouth, and unintentional mask removal during sleep were covered. Patient experiences nasal congestion. Patient will use nasal saline spray before starting PAP, use heated PAP humidifier, clean/air dry humidifier reservoir daily, use nasal steroid spray, use ipratropium bromide nasal spray if rhinitis/rhinorrhe a is present or obtain an oronasal/oral interface. ResMed Air Sense 11 auto set unit with heated humidifier, Respironics small DreamWear nasal mask and supplies at 5-6 cmH2O ordered. Further titration will be based on clinical response. Provided the patient with a list of local home care stores where positive airway pressure (PAP) units, accoutrement, and services are available. Home care store selection is based on patient's insurance carrier. Patient will setup an appointment with [facility] for supplies and pressure adjustments. A major predictor of success with use of PAP is follow-up with both the respiratory supplier and the treating physician. The respiratory supplier optimally will follow-up within two weeks after starting use while the treating physician optimally will follow-up within 90 days after starting therapy to assess adherence and effectiveness of treatment. The download results can show the treating physician information about adherence to treatment, residual AHI while on treatment and presence of large mask leakage. This information is especially helpful if the patient has residual sleepiness despite treatment. General information on sleep disordered breathing, evaluation of sleep disordered breathing, treatment with PAP therapy, and living with PAP therapy were covered. We discussed with the patient the impact of weight on: Sleep disordered breathing GABRIELE We discussed with the patient the benefit of PAP therapy on: Sleep disordered breathing Depression Rhinitis Mild RVE GABRIELE Educated the patient on sleep hygiene measures. Relaxing rituals to rest easy, understanding foods with positive and negative impact on sleep, creating a peaceful sleep environment, timing of exercise, using herbal sleep aids, and practicing sleep-friendly meditation were covered. To determine how much sleep is needed, the patient will assess where she falls on the spectrum, examine what lifestyle factor such as stress is affecting the quality and quantity of sleep. In general, adults need 7-9 hours of sleep. Educated the patient regarding foods that promote sleep. These include but are not limited to cherries, bananas, toast, oatmeal, and warm milk. Educated the patient regarding foods and drinks to avoid before bedtime. These include but are not limited to aged cheese, chocolate, spicy foods, tomato-based sauces, soy, ginseng tea and processed meat. Advocated influenza vaccination annually and pneumonia vaccination MIGUEL. Advocated weight loss through diet and exercise. Patient's ideal body weight according to height and gender is up to 150 lbs. Encouraged patient to adjust caloric intake to maintain/achieve ideal body weight, emphasizing on fruits, vegetables, whole grains, and fat-free or low-fat products. These include lean meats, poultry, fish, beans, eggs, and nuts and foods that are low in saturated fats, trans-fats, cholesterol, salt (sodium), and glycemic index. Stressed the importance of regular exercise up to the patient's capacity limits. In this case, we recommend 20 min daily walking, 2 days a week of resistance training. Patient to monitor BP daily and bring records to PCP for further management. Follow-up: 3 months, February 2023 Not available 11/19/2022 15:48:28 02/19/2023 02/19/2023 Assessment: RA on Rituxan every 6 months (last dose 09/2021) Hypogammaglobuline benji (low total IgG, IgG1, IgG2, IgG4) c/o Dr. Dedrick Lindsay RML/RLL bronchiectasis RUL, RML, LLL lung cysts Postnasal drip Mod OSAHS, AHI = 17 Plan: The following were reviewed and explained to the patient: [facility] 03/15/22 -03/20/22 IV Levaquin, IV vancomycin, IV Solu-Medrol, IV remdesivir 6MW 03/22/22 1 Lpm exertional O2 Chest CT 03/15/22 5-lobe pneumonia, RML/RLL bronchiectasis Chest CT 03/29/22 improving bilateral GGO compared with 03/15/22 Lab data 03/22/22 low total IgG, IgG1, IgG2, IgG4 Sputum culture 03/30/22 nl resp brian Sputum fungal stain 03/30/22 no fungus 2-D echocardiogram 03/30/22 mild LVH, EF 61%, mild RVE Blood cultures 04/10/[address] Dedrick Lindsay heel cementer machine note 05/08/22 received PPSV23, check gG, IgA, IgM, PPSV23 titers PFT 05/03/20 nl FEV1/FVC, FEV1 3.55 L (101%), TLC 5.70 L (100%), DLCO 81% PFT 03/29/22 nl FEV1/FVC, FEV1 3.05 L (97%), TLC 4.84 L (83%), DLCO 31%, DLCO/VA 55% Methacholine challenge testing 06/21/[address] Betsy Lindsay note 07/02/22 CVID to be on IVIG/SCIG Chest CT 08/25/22 pneumonia resolved, RML/RLL bronchiectasis, RUL, RML, LLL lung cysts, borderline splenomegaly [facility] home sleep study 08/23/22 AHI = 17, supine AHI = 32 [facility] titration sleep study 10/31/22 Respironics small DreamWear nasal mask @ 5-6 cmH2O Continue Atrovent nasal spray 0.06% 1 spray to each nostril up to 4 times a day. Patient will continue in SmartVest Airway Clearance System as the handheld flutter valve oscillatory mucus removal device is not effective. Advised to continue not to smoke. Continue Ventolin HFA as needed for bronchitic episodes. The patient does not know how to accurately administer the inhaler. Today, the patient was shown how to take this medication. The proper technique for delivering this medication was instructed. The patient expressed a clear understanding and demonstrated back how to use this medication. Without the proper technique, the patient will not reap the benefits of the treatment as the contents of the inhaler will not reach the lower airways as intended to be. Adherence to therapy is advocated. Nonadherence may lead to treatment failure, further progression of the condition, and other complications. Hospitals admissions are often the result of individuals not taking prescription medications accurately. Alternatively, greater adherence to medication regimens have shown to lower rates of hospitalization and decrease total medical costs in patients with chronic medical conditions. PAP compliance downloaded and interpreted x 20 minutes. Data reviewed and explained to the patient. Average apnea/hypopnea index (AHI) is 0.2. Patient used PAP > 4 hours 92% of the time. PAP is set at 5-6 cmH2O. PAP will remain at 5-6 cmH2O. Oxygen supplementation: none Patient is benefiting from PAP therapy. Encouraged patient to maintain PAP use more than 70% of the time. Statement of PAP use and benefits will be sent to the home care store. Educated the patient on problems and solutions associated with positive airway pressure (PAP) use. Difficulty tolerating pressure, mask leaks, intolerance of interface, nasal congestion, claustrophobic response, dry mouth, and unintentional mask removal during sleep were covered. Patient experiences nasal congestion. Patient will use nasal saline spray before starting PAP, use heated PAP humidifier, clean/air dry humidifier reservoir daily, use nasal steroid spray, use ipratropium bromide nasal spray if rhinitis/rhinorrhe a is present or obtain an oronasal/oral interface. Provided the patient with a list of local home care stores where positive airway pressure (PAP) units, accoutrement, and services are available. Home care store selection is based on patient's insurance carrier. Patient will setup an appointment with [facility] for supplies and pressure adjustments. A major predictor of success with use of PAP is follow-up with both the respiratory supplier and the treating physician. The download results can show the treating physician information about adherence to treatment, residual AHI while on treatment and presence of large mask leakage. This information is especially helpful if the patient has residual sleepiness despite treatment. General information on sleep disordered breathing, evaluation of sleep disordered breathing, treatment with PAP therapy, and living with PAP therapy were covered. We discussed with the patient the impact of weight on: Sleep disordered breathing GABRIELE We discussed with the patient the benefit of PAP therapy on: Sleep disordered breathing Depression Rhinitis Mild RVE GABRIELE Educated the patient on sleep hygiene measures. Relaxing rituals to rest easy, understanding foods with positive and negative impact on sleep, creating a peaceful sleep environment, timing of exercise, using herbal sleep aids, and practicing sleep-friendly meditation were covered. To determine how much sleep is needed, the patient will assess where she falls on the spectrum, examine what lifestyle factor such as stress is affecting the quality and quantity of sleep. In general, adults need 7-9 hours of sleep. Educated the patient regarding foods that promote sleep. These include but are not limited to cherries, bananas, toast, oatmeal, and warm milk. Educated the patient regarding foods and drinks to avoid before bedtime. These include but are not limited to aged cheese, chocolate, spicy foods, tomato-based sauces, soy, ginseng tea and processed meat. Advocated influenza vaccination annually and pneumonia vaccination MIGUEL. Advocated weight loss through diet and exercise. Patient's ideal body weight according to height and gender is up to 150 lbs. Encouraged patient to adjust caloric intake to maintain/achieve ideal body weight, emphasizing on fruits, vegetables, whole grains, and fat-free or low-fat products. These include lean meats, poultry, fish, beans, eggs, and nuts and foods that are low in saturated fats, trans-fats, cholesterol, salt (sodium), and glycemic index. Stressed the importance of regular exercise up to the patient's capacity limits. In this case, we recommend 20 min daily walking, 2 days a week of resistance training. Patient to monitor BP daily and bring records to PCP for further management. Follow-up: 1 year, February 2024 Not available 07/21/2023 20:26:02 08/05/2023 08/05/2023 Assessment: RA off Rituxan every 6 months (last dose 09/2021) Hypogammaglobuline benji (low total IgG, IgG1, IgG2, IgG4) c/o Dr. Dedrick Lindsay RML/RLL bronchiectasis RUL, RML, LLL lung cysts Postnasal drip Mod OSAHS, AHI = 17 Plan: The following were reviewed and explained to the patient: [facility] 03/15/22 -03/20/22 IV Levaquin, IV vancomycin, IV Solu-Medrol, IV remdesivir 6MW 03/22/22 1 Lpm exertional O2 Chest CT 03/15/22 5-lobe pneumonia, RML/RLL bronchiectasis Chest CT 03/29/22 improving bilateral GGO compared with 03/15/22 Lab data 03/22/22 low total IgG, IgG1, IgG2, IgG4 Sputum culture 03/30/22 nl resp brian Sputum fungal stain 03/30/22 no fungus 2-D echocardiogram 03/30/22 mild LVH, EF 61%, mild RVE Blood cultures 04/10/[address] Dedrick Lindsay heel cementer machine note 05/08/22 received PPSV23, check gG, IgA, IgM, PPSV23 titers PFT 05/03/20 nl FEV1/FVC, FEV1 3.55 L (101%), TLC 5.70 L (100%), DLCO 81% PFT 03/29/22 nl FEV1/FVC, FEV1 3.05 L (97%), TLC 4.84 L (83%), DLCO 31%, DLCO/VA 55% Methacholine challenge testing 06/21/[address] Betsy Lindsay note 07/02/22 CVID to be on IVIG/SCIG Chest CT 08/25/22 pneumonia resolved, RML/RLL bronchiectasis, RUL, RML, LLL lung cysts, borderline splenomegaly [facility] home sleep study 08/23/22 AHI = 17, supine AHI = 32 [facility] titration sleep study 10/31/22 Respironics small DreamWear nasal mask @ 5-6 cmH2O Continue Atrovent nasal spray 0.06% 1 spray to each nostril up to 4 times a day. Patient will continue in SmartVest Airway Clearance System as the handheld flutter valve oscillatory mucus removal device is not effective. Advised to continue not to smoke. Continue Ventolin HFA as needed for bronchitic episodes. The patient does not know how to accurately administer the inhaler. Today, the patient was shown how to take this medication. The proper technique for delivering this medication was instructed. The patient expressed a clear understanding and demonstrated back how to use this medication. Without the proper technique, the patient will not reap the benefits of the treatment as the contents of the inhaler will not reach the lower airways as intended to be. Adherence to therapy is advocated. Nonadherence may lead to treatment failure, further progression of the condition, and other complications. Hospitals admissions are often the result of individuals not taking prescription medications accurately. Alternatively, greater adherence to medication regimens have shown to lower rates of hospitalization and decrease total medical costs in patients with chronic medical conditions. PAP compliance downloaded and interpreted x 20 minutes. Data reviewed and explained to the patient. Average apnea/hypopnea index (AHI) is 0.2. Patient used PAP > 4 hours 92% of the time. PAP is set at 5-6 cmH2O. PAP will remain at 5-6 cmH2O. Keep ramp off. Keep EPR +1. Keep humidifier level @ 4. Keep tube temperature @ 76 F. Oxygen supplementation: none Patient is benefiting from PAP therapy. Encouraged patient to maintain PAP use more than 70% of the time. Statement of PAP use and benefits will be sent to the home care store. Educated the patient on problems and solutions associated with positive airway pressure (PAP) use. Difficulty tolerating pressure, mask leaks, intolerance of interface, nasal congestion, claustrophobic response, dry mouth, and unintentional mask removal during sleep were covered. Patient experiences nasal congestion. Patient will use nasal saline spray before starting PAP, use heated PAP humidifier, clean/air dry humidifier reservoir daily, use nasal steroid spray, use ipratropium bromide nasal spray if rhinitis/rhinorrhe a is present or obtain an oronasal/oral interface. Provided the patient with a list of local home care stores where positive airway pressure (PAP) units, accoutrement, and services are available. Home care store selection is based on patient's insurance carrier. Patient will setup an appointment with [facility] for supplies and pressure adjustments. A major predictor of success with use of PAP is follow-up with both the respiratory supplier and the treating physician. The download results can show the treating physician information about adherence to treatment, residual AHI while on treatment and presence of large mask leakage. This information is especially helpful if the patient has residual sleepiness despite treatment. General information on sleep disordered breathing, evaluation of sleep disordered breathing, treatment with PAP therapy, and living with PAP therapy were covered. We discussed with the patient the impact of weight on: Sleep disordered breathing GABRIELE We discussed with the patient the benefit of PAP therapy on: Sleep disordered breathing Depression Rhinitis Mild RVE GABRIELE Educated the patient on sleep hygiene measures. Relaxing rituals to rest easy, understanding foods with positive and negative impact on sleep, creating a peaceful sleep environment, timing of exercise, using herbal sleep aids, and practicing sleep-friendly meditation were covered. To determine how much sleep is needed, the patient will assess where she falls on the spectrum, examine what lifestyle factor such as stress is affecting the quality and quantity of sleep. In general, adults need 7-9 hours of sleep. Educated the patient regarding foods that promote sleep. These include but are not limited to cherries, bananas, toast, oatmeal, and warm milk. Educated the patient regarding foods and drinks to avoid before bedtime. These include but are not limited to aged cheese, chocolate, spicy foods, tomato-based sauces, soy, ginseng tea and processed meat. Advocated influenza vaccination annually and pneumonia vaccination MIGUEL. Advocated weight loss through diet and exercise. Patient's ideal body weight according to height and gender is up to 150 lbs. Encouraged patient to adjust caloric intake to maintain/achieve ideal body weight, emphasizing on fruits, vegetables, whole grains, and fat-free or low-fat products. These include lean meats, poultry, fish, beans, eggs, and nuts and foods that are low in saturated fats, trans-fats, cholesterol, salt (sodium), and glycemic index. Stressed the importance of regular exercise up to the patient's capacity limits. In this case, we recommend 20 min daily walking, 2 days a week of resistance training. Patient to monitor BP daily and bring records to PCP for further management. Follow-up: 1 year, August 2024 Not available 08/05/2023 15:37:24 Plan of Treatment Reminders Order Date Submit Date Provider Last Modified By Organization Details Last Modified Time Details Appointments None recorded. Lab None recorded. Referral cardiologis t referral 2022 023 [facility] Referral Fax Line, [address], [address], [place], [address], 3 14:01:08 Procedures None recorded. Surgeries None recorded. Imaging polysomnogr am, titration study 2022 023 [facility], [address] [place], [address], 3 19:28:44 CT, chest, w/o contrast 2022 023 [facility] ([facility]), [address] [place], [address], 3 15:23:34 Medication Orders fluticasone propionate 50 mcg/actuati on nasal spray,suspe nsion [address]/[facility]acy #[id number], [address], [place], [address], 3 23:47:05 ipratropium bromide 42 mcg (0.06 %) nasal spray 2022 023 [id number], [address], [place], [address], 3 16:10:47 Patient TargetsNo targets recorded. Patient InstructionsNo instructions recorded. Reason for Referral [employer] Referral for Dy spnea on exertion Referring Physician: Jaun Fonseca, Pulmonary Disease, Encounter Date: 06/21/2022 Results Created Date Observation Date Name Description Value Unit Range Abnormal Flag Note LastModifiedBy Organization Detail LastModifiedTime 06/23/1906/21/2022 metha choli ne chall enge* No observ ation record ed. BARCODE Not Available 2022 11:06:53 08/26/19 23 08/25/2022 CT, chest , w/o contr ast No observ ation record ed. [address] [place], [address], 08/27/2022 09:14:16 09/04/19 23 08/23/2022 home sleep study No observ ation record ed. BARCODE Not Available 2022 10:23:08 11/03/19 23 10/31/2022 polys omnog zaida, titra tion study No observ ation record ed. BARCODE [facility] [address] [place], [address], 11/02/2022 19:28:44 08/21/19 24 08/20/2023 CT, chest , w/o contr ast No observ ation record ed. BARCODE Not Available 2023 09:53:11 Result Notes None recorded. Problems Name Problem SNOMED Code Status Onset Date Resolution Date Notes Provider Name and Address Organization Details Recorded Time Gastroesophag eal reflux disease 108711129 Active Not Available [facility] 3 20:59:40 Rheumatoid arthritis 16936737 Active Not Available [facility] 3 20:59:40 Posterior rhinorrhea 98743094 Active 2022 Jaun Fonseca MD [address], [place], [address] , [facility] 3 16:52:50 Bronchiectasi s 57882208 Active 2022 Jaun Fonseca MD [address], [place], [address] , [facility] 3 17:01:19 Obstructive sleep apnea syndrome 02856510 Active 2022 Jaun Fonseca MD [address], [address], [place], [address] , [facility] 3 14:46:37 Notes:Medical History: Depre ssion 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 Anuja Heredia Procedure History: Right thoracoscopy [place], [place] 2006 Left knee surgery [address] biopsy 2019 Bilateral hip replacement 2010 Percutaneous liver biopsy 2021 Lap cholecystectomy 2022 Endoscopic ultrsound-guided liver biopsy 2022 Occupational History: Disabled since 1996 Problem Notes None recorded. Procedures Surgical History Date Name Laterality Status Provider Name and Address Organization Details Recorded Time 03/04/19 23 Cholecystectomy completed Diamante Wheeler MA [place] - [facility] [employer] 09/13/2022 14:27:54 03/04/19 07 thoracoscopy completed Not Available [facility] 023 20:58:20 Imaging Results None recorded. Procedure Notes None recorded. Medical Equipment None Reported. Allergies Allergen ID Allergen Name Allergen Category Reaction Reaction Severity Criticality Documentation Date Start Date Code Code System Note Provider Name and Address Organization Details Recorded Time 79280 Substance with sulfonami de structure and antibacte rial mechanism of action (substanc e) medicatio n Not available Not available Not available 05/02/2022 97435 8003 SNOMED Not Available [facility] 3 21:01:54 08183 Remicade medicatio n Not available Not available Not available 05/02/2022 74610 0 RxNorm Not Available [facility] 3 21:01:54 42355 Product containin g penicilli n (product) medicatio n Not available Not available Not available 05/02/2022 30572 8001 SNOMED Not Available [facility] 3 21:01:54 Medications Name Sig Start Date Stop Date Status Note LastModified by Organization Details LastModified Time fluconazole 100 mg tablet TAKE 2 TABLETS BY MOUTH ON DAY 1, THEN 1 TABLET DAILY FOR 10 DAYS 07/31 completed Not Available Not Available Not Available clotrimazol e 10 mg vikram TAKE 1 TABLET BY MOUTH 5 TIMES A DAY. 07/31 completed Not Available Not Available Not Available prednisone 10 mg tablet TAKE 2 TABLETS BY MOUTH EVERY DAY 07/31 completed Not Available Not Available Not Available venlafaxine ER 75 mg capsule,ext ended release 24 hr 07/22 completed Not Available Not Available Not Available ipratropium 0.5 mg-albutero l 3 mg (2.5 mg base)/3 mL nebulizatio n soln USE 1 VIAL VIA NEBULIZER FOUR TIMES DAILY 07/02 completed Not Available Not Available Not Available azithromyci n 250 mg tablet 1 TABLET DAILY 08/04 completed Not Available Not Available Not Available fluconazole 150 mg tablet TAKE 1 TABLET BY MOUTH EVERY DAY FOR 1 DAY DIRECTED 07/02 completed Not Available Not Available Not Available Claritin 10 mg tablet Take 1 tablet every day by oral route. 02/19 completed Not Available Not Available Not Available ondansetron HCl 4 mg tablet TAKE 2 TABLETS BY MOUTH THREE TIMES DAILY NEEDED 07/02 completed Not Available Not Available Not Available prednisone 20 mg tablet TAKE 2 TABLETS BY MOUTH EVERY DAY 03/22 completed Not Available Not Available Not Available prednisone 5 mg tablet TAKE 1 TABLET (5 MG) BY MOUTH EVERY OTHER DAY ALTERNATI NG WITH 1.5 TABLETS (7.5 MG) EVERY OTHER DAY. active Not Available Not Available No t Available venlafaxine ER 150 mg capsule,ext ended release 24 hr TK 1 C PO QD 09/13 completed Not Available Not Available Not Available azathioprin e 50 mg tablet 09/13 completed Not Available Not Available Not Available ciprofloxac in 500 mg tablet TAKE 1 TABLET BY MOUTH TWICE A DAY FOR 5 DAYS 07/31 completed Not Available Not Available Not Available triamcinolo ne acetonide 0.1 % topical cream 03/22 completed Not Available Not Available Not Available pantoprazol e 20 mg tablet,oniel yed release TAKE 1 TABLET BY MOUTH EVERY DAY active Not Available Not Available No t Available mycophenola te mofetil 500 mg tablet TAKE 2 TABLETS BY MOUTH TWICE A DAY active Not Available Not Available No t Available hydrocortis one 2.5 % topical cream with perineal applicator APPLY THIN LAYER TOPICALLY TO THE AFFECTED AREA 2 TO 4 TIMES DAILY 07/31 completed Not Available Not Available Not Available famotidine 20 mg tablet TAKE 1 TABLET TWICE A DAY BY ORAL ROUTE NEEDED. active Not Available Not Available No t Available amitriptyli ne 25 mg tablet TAKE 1 TABLET BY MOUTH EVERY DAY AT NIGHT active Not Available Not Available No t Available benzonatate 100 mg capsule TAKE 1 CAPSULE BY MOUTH EVERY 8 HOURS NEEDED 07/02 completed Not Available Not Available Not Available ferrous sulfate 325 mg (65 mg iron) tablet 03/22 completed Not Available Not Available Not Available ranitidine 150 mg tablet TK 2 TS PO BID 03/22 completed Not Available Not Available Not Available ursodiol 300 mg capsule TAKE 5 CAPSULES BY MOUTH WITH EVENING MEAL active Not Available Not Available No t Available dapsone 25 mg tablet TAKE 2 TABLETS BY MOUTH DAILY active Not Available Not Available No t Available docusate sodium 100 mg capsule 09/13 completed Not Available Not Available Not Available omeprazole 20 mg capsule,del ayed release TAKE 1 CAPSULE BY MOUTH EVERY DAY 07/31 completed Not Available Not Available Not Available budesonide 0.5 mg/2 mL suspension for nebulizatio n Inhale 2 mL twice a day by nebulizat ion route. 03/22 completed Not Available Not Available Not Available diclofenac sodium 75 mg tablet,oniel yed release TK 1 T PO BID 03/22 completed Not Available Not Available Not Available codeine 10 mg-guaifene sin 100 mg/5 mL oral liquid TAKE 5 ML BY MOUTH EVERY 4 HOURS 07/02 completed Not Available Not Available Not Available mupirocin 2 % topical ointment DISSOLVE 1 -1.5 INCHES IN YOUR SALINE IRRIGATIO N AND RINSE TWICE DAILY. *NOT COVERED* 07/31 completed Not Available Not Available Not Available epinephrine 0.3 mg/0.3 mL injection, auto-inject or active Not Available Not Available Not Available cefuroxime axetil 500 mg tablet TAKE 1 TABLET BY MOUTH TWICE A DAY FOR 2 WEEKS 07/31 completed Not Available Not Available Not Available levofloxaci n 500 mg tablet Take 1 tablet every 24 hours by oral route. 04/10 completed Not Available Not Available Not Available levofloxaci n 750 mg tablet TAKE 1 TABLET BY MOUTH EVERY DAY 07/02 completed Not Available Not Available Not Available ipratropium bromide 42 mcg (0.06 %) nasal spray INSTILL 1 SPRAY INTO THE NOSTRILS 4 TIMES DAILY NEEDED 02/19 completed Not Available Not Available Not Available cefdinir 300 mg capsule TAKE 1 CAPSULE BY MOUTH EVERY 12 HOURS FOR 5 DAYS 07/02 completed Not Available Not Available Not Available fluoxetine 20 mg capsule TK 2 CS PO D 07/22 completed Not Available Not Available Not Available fluticasone propionate 50 mcg/actuati on nasal spray,suspe nsion [place] 1 spray twice a day by intranasa l route. 10/19 completed Not Available Not Available Not Available Ventolin HFA 90 mcg/actuati on aerosol inhaler INHALE 2 PUFFS BY MOUTH EVERY 4 HOURS NEEDED 03/22 completed Not Available Not Available Not Available oxycodone 5 mg tablet 09/13 completed Not Available Not Available Not Available ursodiol 500 mg tablet TAKE 3 TABLETS BY MOUTH DAILY active Not Available Not Available No t Available Gammagard Liquid 10 % injection solution active Not Available Not Available Not Available melatonin 07/31 completed Not Available Not Available Not Available omeprazole 02/19 completed Not Available Not Available Not Available Rituxan 03/22 completed Not Available Not Available Not Available Symbicort 80 mcg-4.5 mcg/actuati on HFA aerosol inhaler INHALE 2 PUFFS TWICE DAILY. RINSE MOUTH WITH WATER AFTER USE. DO NOT SWALLOW 07/02 completed Not Available Not Available Not Available venlafaxine ER 225 mg tablet,exte nded release 24 hr TAKE 1 TABLET BY MOUTH EVERY DAY active Not Available Not Available No t Available Zyrtec 10 mg capsule Take by oral route. active Not Available Not Available No t Available ipratropium 0.5 mg-albutero l 2.5 mg/2.5 mL solution for nebulizatio n Inhale 3 mL 4 times a day by inhalatio n route. 07/02 completed Not Available Not Available Not Available Astagraf XL 1 mg capsule,ext ended release TAKE 1 CAPSULE BY MOUTH EVERY DAY active Not Available Not Available No t Available albuterol sulf 90 mcg/actuati on breath activated powder inhaler,sen sor Inhale 2 puffs every 4 hours by inhalatio n route. 03/22 completed Not Available Not Available Not Available Paxlovid 300 mg (150 mg x 2)-100 mg tablets in a dose pack TK 2 NIRMATREL VIR TS AND 1 RITONAVIR T TOGETHER PO BID FOR 5 DAYS BID FOR 5 DAYS DIRECTED 06/21 completed Not Available Not Available Not Available Vitals Date Recorded Heart rate Heart rate Respiratory rate Provider Name and Address Organization Details Last Updated DateTime 06/21/2022 110 /min 110 /min 15 /min Jaun Fonseca MD [address], [address] [employer], [place], [address], [employer] [facility] [employer] 06/21/2022 16:46:54 Date Recorded Body height Body mass index (BMI) Body weight Body temperature Oxygen saturation Systolic And Diastolic Provider Name and Address Organization Details Last Updated DateTime 3 172.72 cm 38.2 kg/m2 721601. 68 g 98.6 [degF] 98 % 118/64 mm[Hg] Diamante Wheeler MA [employer] [facility] [employer] 3 16:40:45 Date Recorded Heart rate Respiratory rate Provider N justin and Address Organization Details Last Updated DateTime 08/05/2023 100 /min 14 /min Jaun Fonseca MD [address], [address] [employer], [place], [address], [employer] 08/05/2023 15:38:00 Date Recorded Body height Body mass index (BMI) Body weight Body temperature Heart rate Oxygen saturation Systolic And Diastolic Provider Name and Address Organization Details Last Updated DateTime 4 172.72 cm 40.4 kg/m2 348125. 57 g 98.5 [degF] 100 /min 98 % 110/60 mm[Hg] Kang Layton CMA [employer] [facility] [employer] 4 15:13:53 Date Recorded Heart rate Respiratory rate Heart rate Provider Name and Address Organization Details Last Updated DateTime 09/13/2022 110 /min 14 /min 110 /min Jaun Fonseca MD [address], [address] [employer], [place], [address], [place] [employer] [facility] [employer] 09/13/2022 14:54:01 Date Recorded Body height Body mass index (BMI) Body weight Body temperature Oxygen saturation Systolic And Diastolic Provider Name and Address Organization Details Last Updated DateTime 3 172.72 cm 37.1 kg/m2 464134. 54 g 98.6 [degF] 98 % 112/74 mm[Hg] Diamante Wheeler MA [facility] [employer] 3 14:30:13 Date Recorded Heart rate Respiratory rate Provider N justin and Address Organization Details Last Updated DateTime 11/19/2022 96 /min 15 /min Jaun Fonseca MD [address] [facility], [address], [address] [employer] [facility] 11/19/2022 15:46:10 Date Recorded Body height Body mass index (BMI) Body weight Body temperature Heart rate Oxygen saturation Systolic And Diastolic Provider Name and Address Organization Details Last Updated DateTime 3 172.72 cm 37.6 kg/m2 877880. 32 g 97.2 [degF] 96 /min 98 % 112/70 mm[Hg] JENNIFER Hilliard [facility] [employer] 3 15:30:37 Date Recorded Heart rate Respiratory rate Provider N justin and Address Organization Details Last Updated DateTime 02/19/2023 105 /min 15 /min Jaun Fonseca MD [address] [facility], [address], [address] [employer] [facility] 02/19/2023 16:28:51 Date Recorded Body height Body mass index (BMI) Body weight Body temperature Heart rate Oxygen saturation Systolic And Diastolic Provider Name and Address Organization Details Last Updated DateTime 3 172.72 cm 37.4 kg/m2 741861. 72 g 97.7 [degF] 105 /min 98 % 110/66 mm[Hg] Diamante Wheeler MA [facility] [employer] 3 16:16:10 Social History Question Answer Notes LastModified by Organization Details LastModified Time Tobacco Smoking Status Never Smoker Not Available [employer] 05/02/2022 20:57:52 What Is Your Level Of Caffeine Consumption? Occasional [id number] Information not available 05/02/2022 In The 14 Days Before Symptom Onset, Have You Had Close Contact With A Laboratory-confi rmed COVID-19 While That Case Was Ill? No Had Covid 02/16/22, Still Tested Positive 03/15/22 Information not available 09/13/2022 In The 14 Days Before Symptom Onset, Have You Had Close Contact With A Person Who Is Under Investigation For COVID-19 While That Person Was Ill? No Information not available 09/13/2022 What Type Of Diet Are You Following? REGULAR [id number].[id number] [id number] Information not available 05/02/2022 Do You Have An Electrostatic Air Filter? No [id number] [id number] Information not available 05/02/2022 Do You Have A Humidifier? No [id number] [id number] Information not available 05/02/2022 Where Do You Live? [place] [id number] [id number] Information not available 05/02/2022 Do You Have Moisture Problems In Your Home? No MIGRATION.0301 [id number] Information not available 05/02/2022 What Was The Date Of Your Most Recent Tobacco Screening? 02/19/2023 Information not available 02/19/2023 Do You Have Any Pets? Yes [id number] [id number] Information not available 05/02/2022 Do You Use Your Seat Belt Or Car Seat Routinely? Yes Information not available 06/21/2022 Do You Have Smoke And Carbon Monoxide Detectors In Your Home? Yes [email or web address].0301 [id number] Information not available 05/02/2022 Are You Passively Exposed To Smoke? No MIGRATION.0301 [id number] Information not available 05/02/2022 Do You Use Sunscreen Routinely? No MIGRATION.0301 [id number] Information not available 05/02/2022 Have You Recently Traveled Abroad? No MIGRATION.0301 [id number] Information not available 05/02/2022 Do You Have Any Dietary Restrictions? No MIGRATION.0301 [id number] Information not available 05/02/2022 Sex: Unknown Functional Status Question Answer Note LastModified by Organizat ion Details LastModified Time Do you use any illicit or recreational drugs? No [id number] Information not available 05/02/2022 What is your level of alcohol consumption? None [id number] Information not available 05/02/2022 What is your exercise level? None [id number] Information not available 05/02/2022 Mental Status None recorded. Family History Relationship Description Onset Age of this Age Resolved Age Notes LastModified by Organization Details LastModified Time Mother Tachycardia MIGRATION.03 0 [id number] Not available 05/02/2022 20:58:21 Mother Obstructive sleep apnea syndrome Not available 2022 14:52:58 Medical History No medical history recorded. Gynecological HistoryNo gynecological history recorded. Obstetrics History GPAL:G 0 P 0 0 0 0 Past Encounters Encounter ID Performer Location Encounter Start Date Encounter Closed Date Diagnosis/Indication Diagnosis SNOMED-CT Code Diagnosis ICD10 Code Diagnosis IMO Codes Diagnosis Note [id number] Jaun Fonseca MD [facility] [address] [address] 03/22/2022 00:00:00 03/22/2022 13:26:34 [id number] MD EZEQUIEL Riggs_[facility] [address] [address] 04/10/2022 00:00:00 04/24/2022 17:24:52 [id number] Jaun Fonseca MD [facility] [address] [address] 06/21/2022 16:25:13 06/22/2022 08:44:11 Posterior rhinorrhea 00049671 R09.82 Dyspnea on exertion 6084 5006 R06.09 R93.1 R00.0 Bronchiectasis 18133974 J47.9 [id number] [facility] [address] [address] 09/13/2022 14:09:57 09/14/2022 08:00:53 Bronchiectasis 40359768 J47.9 Posterior rhinorrhea 758 92157 R09.82 Obstructiv e sleep apnea syndrome 18699904 G47.33 G47.36 G47.61 G47.30 [id number] Jaun Fonseca MD [facility] [address] [address] 11/19/2022 15:22:35 11/19/2022 15:59:46 Obstructive sleep apnea syndrome 57810559 G47.33 Bronchiectasis 98730917 J47.9 Posterior rhinorrhea 758 56322 R09.82 [id number] Jaun Fonseca MD [facility] [address] [address] 02/19/2023 15:34:19 02/20/2023 08:16:18 Obstructive sleep apnea syndrome 70539343 G47.33 Bronchiectasis 36007264 J47.9 Posterior rhinorrhea 758 87756 R09.82 [id number] Jaun Fonseca MD [facility] [address] [address] 08/05/2023 15:03:26 08/06/2023 08:56:17 Obstructive sleep apnea syndrome 64264440 G47.33 Bronchiectasis 52149411 J47.9 Posterior rhinorrhea 758 67085 R09.82 Health Concerns Section Related Observation LastModified by Organization Detai ls LastModified Time None Recorded Concern Status LastModified by Organization Details LastModified Time None Recorded Advance Directives Directive None Recorded Payers Insurance Date Sequence Insurance Name Policy Number Policy Best Covered Member ID Best Member ID Guarantor Name 07/31/2024 1 [facility] ON OR AFTER 09/01/20 (MEDICAID REPLACEMENT - HMO) Mehreen Preston [id number] Mehreen Preston Notes Date Note Type Note Provider Name and Address Organization Details Recorded Time 3 text/html Primary care/Referring provider: Yari Wu MDThe patient was in [facility] from 03/05/22 -03/07/22 for pneumonia and was given IV Levaquin. She was discharged with PO cefdinir 300 mg BID for 5 days followed by PO Levaquin 750 mg daily for 5 days.The patient re-admitted to [facility] from 03/15/22 -03/20/22 for 5-lobe COVID pneumonia and was placed on IV Levaquin, IV vancomycin, IV Solu-Medrol and IV remdesivir. She was discharged on PO Levaquin 500 mg daily x 7 days.Patient is here to go over her methacholine challenge testing as part of her shortness of breath evaluation/management.In itial development of shortness of breath: uration of shortness of breath: 4 monthsCondition of shortness of breath: waxes and wanesTiming of shortness of breath: noneFrequency: every hourLimits activities: yesAggravating factors: rolling over in bed, going to bathroomAlleviating factors: restModified Medical Research [place] (mMRC) Dyspnea Scale - Grade 2Grade 0 I only get breathless with strenuous exercise .Grade 1 I get short of breath when hurrying on the level or walking up a slight hill .Grade 2 I walk slower than people of the same age on the level because of breathlessness or have to stop for breath when walking at my own pace on the level .Grade 3 I stop for breath after walking about 100 yards or after a few minutes on the level .Grade 4 I am too breathless to leave the house or I am breathless when dressing .Treatment history:Levaquin po 03/20/22 to 03/23/22Ventolin HFA as needed since 2013 Spiriva Respimat samples since 04/2022 Smart Vest therapy BID for bronchiectasis.Other symptoms:Drooling: noDysarthria: noNeck pain: noOdynophagia: noDysphagia: noWeak mastication: noFacial weakness: noNasal speech: noProtruding tongue: noProductive cough: dark green to dark brown phlegm since 06/2021Wheezing: noChest tightness: yesOrthopnea: noFrequent throat clearing or swallowing: yesPalpitations: noHeartburn: yesEdema: yesEnvironmental exposures:Nicotine smoke: 03/18 ppd 2000-2001Paint: noDye: noDust mites: yesMold: noDamp basement: noWood burning stove: noAnimal dander: 2 dogsCockroaches: noPollen: yesArsenic: noAsbestos: noBeryllium: noCadmium: noChromium: noCoal smoke: noDiesel fumes: noNickel: noSilica: noSoot: noEPWORTH SLEEPINESS SCALE (ESS)CHANCE OF DOZING SCORE0 = would never doze1 = slight chance of dozing2 = moderate chance of dozing3 = high chance of dozingSITUATION AND CHANCE OF DOZINGSitting and reading - 0Watching television - 0Sitting inactive in a public place (e.g. a theater or meeting) - 0As a passenger in a car for an hour without a break - 0Lying down to rest in the afternoon when circumstances permit - 1Sitting and talking to someone - 0Sitting quietly after lunch without alcohol - 0In a car, while stopped for a few minutes in the traffic - 0TOTAL SCORE 1Subjectively, patient has a slight chance of dozing. Jaun Fonseca MD [address] [facility], [facility] [address], [place], [address], [place] - [facility] [employer] [facility] 06/21/2022 17:14:54 3 text/html Primary care/Referring provider: Yari Wu, MDPatient is here to go over her chest CT as part of her shortness of breath evaluation/management.In itial development of shortness of breath: 2Duration of shortness of breath: 7 monthsCondition of shortness of breath: waxes and wanesTiming of shortness of breath: noneFrequency: every hourLimits activities: yesAggravating factors: rolling over in bed, going to bathroomAlleviating factors: restModified Medical Research [place] (mMRC) Dyspnea Scale - Grade 2Grade 0 I only get breathless with strenuous exercise .Grade 1 I get short of breath when hurrying on the level or walking up a slight hill .Grade 2 I walk slower than people of the same age on the level because of breathlessness or have to stop for breath when walking at my own pace on the level .Grade 3 I stop for breath after walking about 100 yards or after a few minutes on the level .Grade 4 I am too breathless to leave the house or I am breathless when dressing .Treatment history:Levaquin po 03/20/22 to 03/23/22Ventolin HFA as needed since 2013 Spiriva Respimat samples 04/2022-06/2022 Smart Vest therapy BID for bronchiectasis since 04/2022Other symptoms:Drooling: noDysarthria: noNeck pain: noOdynophagia: noDysphagia: noWeak mastication: noFacial weakness: noNasal speech: noProtruding tongue: noProductive cough: dark green to dark brown phlegm since 06/2021Wheezing: noChest tightness: yesOrthopnea: noFrequent throat clearing or swallowing: yesPalpitations: noHeartburn: yesEdema: yesEnvironmental exposures:Nicotine smoke: 03/18 ppd 2000-2001Paint: noDye: noDust mites: yesMold: noDamp basement: noWood burning stove: noAnimal dander: 2 dogsCockroaches: noPollen: yesArsenic: noAsbestos: noBeryllium: noCadmium: noChromium: noCoal smoke: noDiesel fumes: noNickel: noSilica: noSoot: no During the [facility] home sleep study on 08/23/22, AHI = 17, supine AHI = 32. At home, the patient sleeps from 2 am to 11 am and wakes up without an alarm. Snoring: heavy, since . Snorting: no Choking: no Coughing: no Gasping: no Gagging: no Sighing: no Witnessed apnea: yes Twitching or jerking of leg(s), arm(s), body, head: yes Teeth grinding: yes Teeth clenching: yes Sleeptalking: yes Sleepwalking: no Sleep crying: no Bedwetting: no Tongue/lip/gum/cheek biting: no Sleeping with open mouth: yes Sleep paralysis: no Hypnagogic hallucinations: no Hypnopompic hallucinations: no Vivid dreams: yes Difficulty with sleep onset: yes Difficulty with sleep maintenance: yes Sleep interruptions: nocturia x 2 Patient wakes up with: fatigue, xerostomia, cognitive impairment, mobility impairmentDaytime cataplexy: no Morning hypersomnolence: yes Afternoon hypersomnolence: yes Caffeine sources in diet: soda 1 fountain drink per week, chocolate 1 candy per week Associated medical and psychiatric conditions: Congestive heart failure: no Coronary artery disease: no Myocardial infarction: no Hypertension: no Stroke: no Bronchial asthma: no Chronic obstructive pulmonary disease: no Depression: yes Bipolar disorder: no Anxiety: no Panic disorder: no Posttraumatic stress disorder: no Attention deficit and hyperactivity disorder: no Obsessive Compulsive disorder: no Schizophrenia: no Schizoaffective disorder: no Personality disorder: no Chronic analgesic use: no Chronic sedative/hypnotic use: noEPWORTH SLEEPINESS SCALE (ESS)CHANCE OF DOZING SCORE0 = would never doze1 = slight chance of dozing2 = moderate chance of dozing3 = high chance of dozingSITUATION AND CHANCE OF DOZINGSitting and reading - 1Watching television - 1Sitting inactive in a public place (e.g. a theater or meeting) - 1As a passenger in a car for an hour without a break - 3Lying down to rest in the afternoon when circumstances permit - 3Sitting and talking to someone - 0Sitting quietly after lunch without alcohol - 1In a car, while stopped for a few minutes in the traffic - 0TOTAL SCORE 10Subjectively, patient has a slight chance of dozing. Jaun Fonseca MD [address] [place] [address], [place], [address], [place] [facility] [email or web address] 10/15/2022 11:48:42 3 text/html Primary care/Referring provider: Yari Wu, MDPatient is here to go over her chest CT as part of her bronchiectasis management.Initial development of shortness of breath: 2Duration of shortness of breath: 9 monthsCondition of shortness of breath: waxes and wanesTiming of shortness of breath: noneFrequency: every hourLimits activities: yesAggravating factors: rolling over in bed, going to bathroomAlleviating factors: restModified Medical Research [place] (mMRC) Dyspnea Scale - Grade 2Grade 0 I only get breathless with strenuous exercise .Grade 1 I get short of breath when hurrying on the level or walking up a slight hill .Grade 2 I walk slower than people of the same age on the level because of breathlessness or have to stop for breath when walking at my own pace on the level .Grade 3 I stop for breath after walking about 100 yards or after a few minutes on the level .Grade 4 I am too breathless to leave the house or I am breathless when dressing .Treatment history:Levaquin po 03/20/22 to 03/23/22Ventolin HFA as needed since 2013 Spiriva Respimat samples 04/2022-06/2022 Smart Vest therapy BID for bronchiectasis since 04/2022Other symptoms:Drooling: noDysarthria: noNeck pain: noOdynophagia: noDysphagia: noWeak mastication: noFacial weakness: noNasal speech: noProtruding tongue: noProductive cough: dark green to dark brown phlegm since 06/2021Wheezing: noChest tightness: yesOrthopnea: noFrequent throat clearing or swallowing: yesPalpitations: noHeartburn: yesEdema: yesEnvironmental exposures:Nicotine smoke: 03/18 ppd 2000-2001Paint: noDye: noDust mites: yesMold: noDamp basement: noWood burning stove: noAnimal dander: 2 dogsCockroaches: noPollen: yesArsenic: noAsbestos: noBeryllium: noCadmium: noChromium: noCoal smoke: noDiesel fumes: noNickel: noSilica: noSoot: no During the [facility] home sleep study on 08/23/22, AHI = 17, supine AHI = 32. During the [facility] titration sleep study on 10/31/22, the patient uses a ResMed AirSense 11 autoset unit Respironics Dream Station Auto A-flex unit with heated humidification. The patient does not need the ramp to start low and go up slowly on the pressure. There is no xerostomia in a.m. There is no hose/mask condensation with water. The patient wears a Respironics small DreamWear nasal mask without chin strap. There is no claustrophobia, no nostril/nose bridge irritation, no facial rash, no facial numbness, no nosebleeding. The patient feels more refreshed upon waking and daytime alertness is improved. Energy levels are sustained for the remainder of the day. At home, the patient sleeps from 2 am to 11 am and wakes up without an alarm. Snoring: heavy, since .Snorting: noChoking: noCoughing: noGasping: noGagging: noSighing: noWitnessed apnea: yesTwitching or jerking of leg(s), arm(s), body, head: yesTeeth grinding: yesTeeth clenching: yesSleeptalking: yesSleepwalking: noSleep crying: noBedwetting: noTongue/lip/gum/cheek biting: noSleeping with open mouth: yesSleep paralysis: noHypnagogic hallucinations: noHypnopompic hallucinations: noVivid dreams: yesDifficulty with sleep onset: yesDifficulty with sleep maintenance: yesSleep interruptions: nocturia x 2Patient wakes up with: fatigue, xerostomia, cognitive impairment, mobility impairmentDaytime cataplexy: noMorning hypersomnolence: yesAfternoon hypersomnolence: yesCaffeine sources in diet: soda 1 fountain drink per week, chocolate 1 candy per week Associated medical and psychiatric conditions:Congestive heart failure: noCoronary artery disease: noMyocardial infarction: noHypertension: noStroke: noBronchial asthma: noChronic obstructive pulmonary disease: noDepression: yesBipolar disorder: noAnxiety: noPanic disorder: noPosttraumatic stress disorder: noAttention deficit and hyperactivity disorder: noObsessive Compulsive disorder: noSchizophrenia: noSchizoaffective disorder: noPersonality disorder: noChronic analgesic use: noChronic sedative/hypnotic use: noEPWORTH SLEEPINESS SCALE (ESS)CHANCE OF DOZING SCORE0 = would never doze1 = slight chance of dozing2 = moderate chance of dozing3 = high chance of dozingSITUATION AND CHANCE OF DOZINGSitting and reading - 0Watching television - 0Sitting inactive in a public place (e.g. a theater or meeting) - 0As a passenger in a car for an hour without a break - 1Lying down to rest in the afternoon when circumstances permit - 1Sitting and talking to someone - 0Sitting quietly after lunch without alcohol - 1In a car, while stopped for a few minutes in the traffic - 0TOTAL SCORE 3Subjectively, patient has a slight chance of dozing. Jaun Fonseca MD [address] [place] [address] [address], [place], [address], [place] [facility] [place] [employer] [facility] [employer] 11/19/2022 16:00:15 3 text/html Primary care/Referring provider: Yari Wu MDPatient is here to go over her bronchiectasis management.Initial development of shortness of breath: uration of shortness of breath: 1 yearCondition of shortness of breath: improvedTiming of shortness of breath: noneFrequency: once a dayLimits activities: yesAggravating factors: rolling over in bed, going to bathroomAlleviating factors: restModified Medical Research [place] (mMRC) Dyspnea Scale - Grade 2Grade 0 I only get breathless with strenuous exercise .Grade 1 I get short of breath when hurrying on the level or walking up a slight hill .Grade 2 I walk slower than people of the same age on the level because of breathlessness or have to stop for breath when walking at my own pace on the level .Grade 3 I stop for breath after walking about 100 yards or after a few minutes on the level .Grade 4 I am too breathless to leave the house or I am breathless when dressing .Treatment history:Levaquin po 03/20/22 to 03/23/22Ventolin HFA as needed since 2013 Spiriva Respimat samples 04/2022-06/2022 Smart Vest therapy BID for bronchiectasis since 04/2022Other symptoms:Drooling: noDysarthria: noNeck pain: noOdynophagia: noDysphagia: noWeak mastication: noFacial weakness: noNasal speech: noProtruding tongue: noProductive cough: dark green to dark brown phlegm since 06/2021Wheezing: noChest tightness: yesOrthopnea: noFrequent throat clearing or swallowing: yesPalpitations: noHeartburn: yesEdema: yesEnvironmental exposures:Nicotine smoke: 03/18 ppd 2000-2001Paint: noDye: noDust mites: yesMold: noDamp basement: noWood burning stove: noAnimal dander: 2 dogsCockroaches: noPollen: yesArsenic: noAsbestos: noBeryllium: noCadmium: noChromium: noCoal smoke: noDiesel fumes: noNickel: noSilica: noSoot: no During the [facility] home sleep study on 08/23/22, AHI = 17, supine AHI = 32. At home since 12/05/22, the patient uses a ResMed AirSense 11 autoset unit with heated humidification. The patient does not need the ramp to start low and go up slowly on the pressure. There is no xerostomia in a.m. There is no hose/mask condensation with water. The patient wears a [employer] full face mask without chin strap. There is no claustrophobia, no nostril/nose bridge irritation, no facial rash, no facial numbness, no nosebleeding. The patient feels more refreshed upon waking and daytime alertness is improved. Energy levels are sustained for the remainder of the day. At home, the patient sleeps from 2 am to 11 am and wakes up without an alarm. Snoring: heavy, since .Snorting: noChoking: noCoughing: noGasping: noGagging: noSighing: noWitnessed apnea: yesTwitching or jerking of leg(s), arm(s), body, head: yesTeeth grinding: yesTeeth clenching: yesSleeptalking: yesSleepwalking: noSleep crying: noBedwetting: noTongue/lip/gum/cheek biting: noSleeping with open mouth: yesSleep paralysis: noHypnagogic hallucinations: noHypnopompic hallucinations: noVivid dreams: yesDifficulty with sleep onset: yesDifficulty with sleep maintenance: yesSleep interruptions: nocturia x 2Patient wakes up with: fatigue, xerostomia, cognitive impairment, mobility impairmentDaytime cataplexy: noMorning hypersomnolence: yesAfternoon hypersomnolence: yesCaffeine sources in diet: soda 1 fountain drink per week, chocolate 1 candy per week Associated medical and psychiatric conditions:Congestive heart failure: noCoronary artery disease: noMyocardial infarction: noHypertension: noStroke: noBronchial asthma: noChronic obstructive pulmonary disease: noDepression: yesBipolar disorder: noAnxiety: noPanic disorder: noPosttraumatic stress disorder: noAttention deficit and hyperactivity disorder: noObsessive Compulsive disorder: noSchizophrenia: noSchizoaffective disorder: noPersonality disorder: noChronic analgesic use: noChronic sedative/hypnotic use: noEPWORTH SLEEPINESS SCALE (ESS)CHANCE OF DOZING SCORE0 = would never doze1 = slight chance of dozing2 = moderate chance of dozing3 = high chance of dozingSITUATION AND CHANCE OF DOZINGSitting and reading - 1Watching television - 1Sitting inactive in a public place (e.g. a theater or meeting) - 1As a passenger in a car for an hour without a break - 2Lying down to rest in the afternoon when circumstances permit - 3Sitting and talking to someone - 0Sitting quietly after lunch without alcohol - 1In a car, while stopped for a few minutes in the traffic - 0TOTAL SCORE 9Subjectively, patient has a moderate chance of dozing. Jaun Fonseca MD [address] [place] [address], [facility] [address], [place], [address], [place] - [facility] [place] [email or web address] 07/21/2023 20:26:06 4 text/html Primary care/Referring provider: Yari Wu, MDPatient is here to go over her bronchiectasis management.Initial development of shortness of breath: uration of shortness of breath: 2 yearsCondition of shortness of breath: improvedTiming of shortness of breath: noneFrequency: once a dayLimits activities: yesAggravating factors: rolling over in bed, going to bathroomAlleviating factors: restModified Medical Research [place] (mMRC) Dyspnea Scale - Grade 2Grade 0 I only get breathless with strenuous exercise .Grade 1 I get short of breath when hurrying on the level or walking up a slight hill .Grade 2 I walk slower than people of the same age on the level because of breathlessness or have to stop for breath when walking at my own pace on the level .Grade 3 I stop for breath after walking about 100 yards or after a few minutes on the level .Grade 4 I am too breathless to leave the house or I am breathless when dressing .Treatment history:Levaquin po 03/20/22 to 03/23/22Ventolin HFA as needed since 2013 Spiriva Respimat samples 04/2022-06/2022 Smart Vest therapy BID for bronchiectasis since 04/2022Other symptoms:Drooling: noDysarthria: noNeck pain: noOdynophagia: noDysphagia: noWeak mastication: noFacial weakness: noNasal speech: noProtruding tongue: noProductive cough: dark green to dark brown phlegm since 06/2021Wheezing: noChest tightness: yesOrthopnea: noFrequent throat clearing or swallowing: yesPalpitations: noHeartburn: yesEdema: yesEnvironmental exposures:Nicotine smoke: 03/18 ppd 2000-2001Paint: noDye: noDust mites: yesMold: noDamp basement: noWood burning stove: noAnimal dander: 2 dogsCockroaches: noPollen: yesArsenic: noAsbestos: noBeryllium: noCadmium: noChromium: noCoal smoke: noDiesel fumes: noNickel: noSilica: noSoot: no During the [facility] home sleep study on 08/23/22, AHI = 17, supine AHI = 32. At home since 02/19/23, the patient uses a ResMed AirSense 11 autoset unit with heated humidification. The patient does not need the ramp to start low and go up slowly on the pressure. There is no xerostomia in a.m. There is no hose/mask condensation with water. The patient wears a [employer] full face mask without chin strap. There is no claustrophobia, no nostril/nose bridge irritation, no facial rash, no facial numbness, no nosebleeding. The patient feels more refreshed upon waking and daytime alertness is improved. Energy levels are sustained for the remainder of the day. At home, the patient sleeps from 2 am to 11 am and wakes up without an alarm. Snoring: heavy, since .Snorting: noChoking: noCoughing: noGasping: noGagging: noSighing: noWitnessed apnea: yesTwitching or jerking of leg(s), arm(s), body, head: yesTeeth grinding: yesTeeth clenching: yesSleeptalking: yesSleepwalking: noSleep crying: noBedwetting: noTongue/lip/gum/cheek biting: noSleeping with open mouth: yesSleep paralysis: noHypnagogic hallucinations: noHypnopompic hallucinations: noVivid dreams: yesDifficulty with sleep onset: yesDifficulty with sleep maintenance: yesSleep interruptions: nocturia x 2Patient wakes up with: fatigue, xerostomia, cognitive impairment, mobility impairmentDaytime cataplexy: noMorning hypersomnolence: yesAfternoon hypersomnolence: yesCaffeine sources in diet: soda 1 fountain drink per week, chocolate 1 candy per week Associated medical and psychiatric conditions:Congestive heart failure: noCoronary artery disease: noMyocardial infarction: noHypertension: noStroke: noBronchial asthma: noChronic obstructive pulmonary disease: noDepression: yesBipolar disorder: noAnxiety: noPanic disorder: noPosttraumatic stress disorder: noAttention deficit and hyperactivity disorder: noObsessive Compulsive disorder: noSchizophrenia: noSchizoaffective disorder: noPersonality disorder: noChronic analgesic use: noChronic sedative/hypnotic use: noEPWORTH SLEEPINESS SCALE (ESS)CHANCE OF DOZING SCORE0 = would never doze1 = slight chance of dozing2 = moderate chance of dozing3 = high chance of dozingSITUATION AND CHANCE OF DOZINGSitting and reading - 1Watching television - 0Sitting inactive in a public place (e.g. a theater or meeting) - 0As a passenger in a car for an hour without a break - 1Lying down to rest in the afternoon when circumstances permit - 2Sitting and talking to someone - 0Sitting quietly after lunch without alcohol - 1In a car, while stopped for a few minutes in the traffic - 0TOTAL SCORE 5Subjectively, patient has a slight chance of dozing. Jaun Fonseca MD [address] [place] [address], [id number], [place] [facility] 08/05/2023 15:39:02 OBGyn Episode No OBEpisode recorded.
[2025-02-27] VITALS (17 sets, daily range): BP systolic 112–133; BP diastolic 46–67; PULSE 89–113; RESP 16–22; TEMP 36.8–37.7; O2SAT 91–98; BMI 44.1
[2025-02-27] MEDS: MORPHINE SULFATE (*CRX) 4 MG/ML INJ IV PUSH (00:26)
--- NOTE | 2025-02-27 00:27 | ED.LOWEXIN ---
HPI - Extremity Injury (Lower) General Chief Complaint: Extremity Injury, Lower <Joann Montelongo PA-C - Last Filed: 02/27/25 03:25> Stated Complaint: FALL WITH L HIP AND KNEE PAIN <Joann Montelongo PA-C - Last Filed: 02/27/25 03:25> Time Seen by Provider: 02/26/25 23:40 <Joann Montelongo PA-C - Last Filed: 02/27/25 03:25> Source: patient <Joann Montelongo PA-C - Last Filed: 02/27/25 03:25> Mode of arrival: EMS <GARRET Feng Last Filed: 02/27/25 03:25> Limitations: no limitations <Joann Montelongo PA-C - Last Filed: 02/27/25 03:25> History of Present Illness HPI Narrative: This is a 45 year old female that presents to the ER for left hip and knee pain. Reports she tripped and fell onto her left side. She did not hit her head or lose consciousness. Reports pain mostly in the hip. Some pain in the knee as well. She has had her knee and hip replaced with a doctor at [facility]. <Joann Montelongo PA-C - Last Filed: 02/27/25 03:25> Related Data Home Medications: Home Medications ?Medication ?Instructions ?Recorded ?Confirmed ?Last Taken ?Type amitriptyline 25 mg tablet 50 mg PO QHS 02/27/25 02/27/25 02/25/25 History furosemide 20 mg tablet 20 mg PO QAM 02/27/25 02/27/25 02/26/25 History immune glob,gamma (IgG) 10 14 g subcut WEEKLY 02/27/25 02/27/25 02/20/25 History %-gly-IgA over 50 mcg/mL injection solution (Gammagard Liquid) metoprolol tartrate 25 mg tablet 25 mg PO BID 02/27/25 02/27/25 02/26/25 History pantoprazole 20 mg tablet,delayed 20 mg PO QAM 02/27/25 02/27/25 02/26/25 History release prednisone 5 mg tablet 7.5 mg PO QAM 02/27/25 02/27/25 02/26/25 History spironolactone 50 mg tablet 50 mg PO QAM 02/27/25 02/27/25 02/26/25 History ursodiol 300 mg capsule 1,500 mg PO QAM 02/27/25 02/27/25 02/26/25 History venlafaxine 150 mg 150 mg PO QAM 02/27/25 02/27/25 02/26/25 History capsule,extended release 24 hr venlafaxine 75 mg capsule,extended 75 mg PO QAM 02/27/25 02/27/25 02/26/25 History release 24 hr <oJann Montelongo PA-C - Last Filed: 02/27/25 03:25> Allergies/Adverse Reactions: Allergies Allergy/AdvReac Type Severity Reaction Status Date / Time infliximab (From [employer]) Allergy low bp Verified 02/27/25 06:00 Penicillins Allergy Rash Verified 02/27/25 06:00 <Joann Montelongo PA-C - Last Filed: 02/27/25 03:25> Review of Systems Review of Systems: All systems reviewed & are unremarkable except as noted in HPI and below <Joann Montelongo PA-C - Last Filed: 02/27/25 03:25> [facility] Past Medical History Medical History: Medical History (Updated 02/27/25 @ 08:38 by Francine Costa APRN) Depression with anxiety 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 H/O total hip arthroplasty Bilaterally performed at [facility] History of dental surgery Hx of cholecystectomy <Joann Montelongo PA-C - Last Filed: 02/27/25 03:25> Family History Family History: Family History Sibling Diabetes mellitus Grandparent Arthritis, rheumatoid Mother Tachycardia Hypoglycemia Fibromyalgia <Joann Montelongo PA-C - Last Filed: 02/27/25 03:25> Social History Social History: Social History (Updated 02/27/25 @ 08:21 by Francine Costa APRN) Social History: The patient lives with her . She has no children. She is disabled. She denies any alcohol or drug use. Code status: Full code Smoking status: Never smoker Alcohol intake: never Substance use type: does not use Lack of Transportation: No Lack of Food: Never True Current Housing: I Have Housing Concerned About Future Housing: No Difficulty Paying Gas/Electric Bills: No Difficulty Paying for Meds: No Currently Unemployed: No Education: High School Diploma/GED Difficulty w/ Childcare or Family Care: No Spiritual care concerns: No <Joann Montelongo PA-C - Last Filed: 02/27/25 03:25> Exam Narrative: GENERAL: Well-appearing, well-nourished, and in no acute distress. HEAD: Normocephalic, atraumatic. EYES: EOMI. CHEST: Clear to auscultation. No respiratory distress. No wheezes rales or rhonchi HEART: Regular rate and rhythm. No murmur heard. Normal peripheral pulses. EXTREMITIES: Decreased active ROM in the left hip due to pain. No obvious deformity. SKIN: Warm, dry, no rash. NEURO: No focal deficits. Alert and oriented x3. PSYCH: Normal mood and affect <Joann Montelongo PA-C - Last Filed: 02/27/25 03:25> Course Course Emergency Course: I was informed that this patient would be admitted for the fractures below. Blood work showed she was anemic with hemoglobin 5.8. RONALDO did inform the hospitalist of this and order blood transfusion, 2 Units. I went to patient's bedside and evaluated her. She is resting comfortably. Blood product transfusion I have discussed the proposed blood product transfusion with the patient and support person/witness. I have informed the patient regarding potential risks of blood product transfusion which, though rare, include transfusion reaction, hepatitis, and HIV. The patient has been given the opportunity to ask questions about the need to be transfused and possible outcomes of not receiving this treatment. Patient has verbally agreed to undergo transfusion. I obtain signed consent and placed it in the patient's chart. <Marizol Drew MD - Last Filed: 02/28/25 08:11> Consultations Orthopedics: I have discussed the care of this patient with the following provider: Dr. Miller <Joann Montelongo PA-C - Last Filed: 02/27/25 03:25> Vital Signs Vital signs: Vital Signs Temperature 97.6 F 02/26/25 21:13 Pulse Rate 97 02/26/25 21:13 Respiratory Rate 19 02/26/25 21:13 Blood Pressure 120/91 H 02/26/25 21:13 Pulse Oximetry 100 02/26/25 21:13 Oxygen Delivery Room Air 02/26/25 21:13 Temperature 99.1 F 02/28/25 07:50 Pulse Rate 104 H 02/28/25 07:50 Respiratory Rate 18 02/28/25 07:50 Blood Pressure 125/60 02/28/25 07:50 Pulse Oximetry 96 02/28/25 07:50 Oxygen Delivery Room Air 02/28/25 02:19 Fraction of Inspired Oxygen 21 02/28/25 02:19 <Joann Montelongo PA-C - Last Filed: 02/27/25 03:25> Vital Signs Temperature 97.6 F 02/26/25 21:13 Pulse Rate 97 02/26/25 21:13 Respiratory Rate 19 02/26/25 21:13 Blood Pressure 120/91 H 02/26/25 21:13 Pulse Oximetry 100 02/26/25 21:13 Oxygen Delivery Room Air 02/26/25 21:13 Temperature 99.1 F 02/28/25 07:50 Pulse Rate 104 H 02/28/25 07:50 Respiratory Rate 18 02/28/25 07:50 Blood Pressure 125/60 02/28/25 07:50 Pulse Oximetry 96 02/28/25 07:50 Oxygen Delivery Room Air 02/28/25 02:19 Fraction of Inspired Oxygen 21 02/28/25 02:19 <Marizol Drew MD - Last Filed: 02/28/25 08:11> [facility] Narrative Medical decision making narrative: Patient presents to the emergency department after a fall today with left hip pain. She did not hit her head or lose consciousness. She is neurovascularly intact. Pelvic CT shows nondisplaced sacral and left superior and inferior pubic rami fractures. Knee x-ray without acute findings. Patient will be admitted for further management, PT/OT evaluation. Spoke with Orthopedics who will consult Basic blood work was obtained, patient's hemoglobin did come back at 5.8. She does have history of cirrhosis, has required blood transfusions in the past. She denies any current bleeding. Type and screen has been added, 2 units packed RBCs ordered <Joann Montelongo PA-C - Last Filed: 02/27/25 03:25> Differential Diagnosis Differential Diagnosis: hip fracture, hip dislocation, pelvic fracture <Joann Montelongo PA-C - Last Filed: 02/27/25 03:25> Lab Data Result diagrams: 02/28/25 03:18 02/28/25 03:18 <Joann Montelongo PA-C - Last Filed: 02/27/25 03:25> Labs: Lab Results 02/27/25 Range/Units 02:49 WBC 9.5 (4.5-10.0) K/mm3 RBC 2.42 L (4.2-5.4) M/mm3 Hgb 5.8 L* (12.0-15.0) g/dL Hct 19.2 L* (37.0-47.0) % MCV 79.3 L (80-100) fl MCH 24.0 L (26-34) pg MCHC 30.2 L (32-36) g/dl RDW 17.3 H (11.5-14.5) % Plt Count 288 (150-375) k/mm3 MPV 10.6 H (7.4-10.4) fl Immature Gran % (Auto) 0.9 H (0-0.5) % Neut % (Auto) 51.5 (45.5-73.1) % Lymph % (Auto) 38.1 (18.3-44.2) % [place] % (Auto) 9.2 H (2.6-8.5) % Eos % (Auto) 0.0 (0-4.4) % Baso % (Auto) 0.3 (0.2-1.2) % Lymph # (Auto) 3.63 H (0.9-3.2) K/mm3 [place] # (Auto) 0.9 H (0.1-0.6) K/mm3 Eos # (Auto) 0.0 (0-0.3) K/mm3 Baso # (Auto) 0.0 (0.0-0.1) K/mm3 Abs Immat Gran (auto) 0.09 H (0.00-0.031) K/mm3 Absolute Neuts (auto) 4.9 (1.3-6.7) K/mm3 Absolute Nucleated RBC 0.000 (0.0-0.012) K/mm3 Nucleated RBC % 0.0 (0.0-0.2) % Sodium 136 L (137-145) mmol/L Potassium 3.6 (3.4-5.0) mmol/L Chloride 108 H (98-107) mmol/L Carbon Dioxide 22 (22-30) mmol/L Anion Gap 6 (4-12) mmol/L BUN 20 H (7-17) mg/dL Creatinine 0.84 (0.7-1.0) mg/dL Estim Creat Clear Calc 110 ml/min Estimated GFR > 60 (59 - ) Glucose 85 (65-110) mg/dL Calcium 8.6 (8.4-10.2) mg/dL Total Bilirubin 3.9 H (0.2-1.3) mg/dL AST 37 H (14-36) U/L ALT 18 (6-35) U/L Alkaline Phosphatase 223 H (38-126) U/L Total Protein 5.8 L (6.3-8.2) g/dL Albumin 2.9 L (3.5-5.1) g/dL <oJann Montelongo PA-C - Last Filed: 02/27/25 03:25> Lab Results 02/27/25 Range/Units 02:49 WBC 9.5 (4.5-10.0) K/mm3 RBC 2.42 L (4.2-5.4) M/mm3 Hgb 5.8 L* (12.0-15.0) g/dL Hct 19.2 L* (37.0-47.0) % MCV 79.3 L (80-100) fl MCH 24.0 L (26-34) pg MCHC 30.2 L (32-36) g/dl RDW 17.3 H (11.5-14.5) % Plt Count 288 (150-375) k/mm3 MPV 10.6 H (7.4-10.4) fl Immature Gran % (Auto) 0.9 H (0-0.5) % Neut % (Auto) 51.5 (45.5-73.1) % Lymph % (Auto) 38.1 (18.3-44.2) % [place] % (Auto) 9.2 H (2.6-8.5) % Eos % (Auto) 0.0 (0-4.4) % Baso % (Auto) 0.3 (0.2-1.2) % Lymph # (Auto) 3.63 H (0.9-3.2) K/mm3 [place] # (Auto) 0.9 H (0.1-0.6) K/mm3 Eos # (Auto) 0.0 (0-0.3) K/mm3 Baso # (Auto) 0.0 (0.0-0.1) K/mm3 Abs Immat Gran (auto) 0.09 H (0.00-0.031) K/mm3 Absolute Neuts (auto) 4.9 (1.3-6.7) K/mm3 Absolute Nucleated RBC 0.000 (0.0-0.012) K/mm3 Nucleated RBC % 0.0 (0.0-0.2) % Sodium 136 L (137-145) mmol/L Potassium 3.6 (3.4-5.0) mmol/L Chloride 108 H (98-107) mmol/L Carbon Dioxide 22 (22-30) mmol/L Anion Gap 6 (4-12) mmol/L BUN 20 H (7-17) mg/dL Creatinine 0.84 (0.7-1.0) mg/dL Estim Creat Clear Calc 110 ml/min Estimated GFR > 60 (59 - ) Glucose 85 (65-110) mg/dL Calcium 8.6 (8.4-10.2) mg/dL Total Bilirubin 3.9 H (0.2-1.3) mg/dL AST 37 H (14-36) U/L ALT 18 (6-35) U/L Alkaline Phosphatase 223 H (38-126) U/L Total Protein 5.8 L (6.3-8.2) g/dL Albumin 2.9 L (3.5-5.1) g/dL <Marizol G. Drew, MD - Last Filed: 02/28/25 08:11> Imaging Data Radiologist's impression: CT pelvis: Streak artifact from bilateral total hip arthroplasties. The device appears normally aligned. No hip fracture or dislocation is seen. Subtle nondisplaced fractures at the left sacral wing as well as left Huber. Inferior pubic rami. Left knee x-ray: Total knee arthroplasty in standard position and alignment. No periprosthetic fracture or dislocation is seen. <Joann Montelongo PA-C - Last Filed: 02/27/25 03:25> Critical Care Time Critical Care Time Critical Care Time: No <Joann Montelongo PA-C - Last Filed: 02/27/25 03:25> Discharge Plan Discharge Clinical Impression: Closed fracture of inferior pubic ramus Qualifiers: Encounter type: initial encounter Laterality: left Qualified Code(s): S32.592A - Other specified fracture of left pubis, initial encounter for closed fracture Closed fracture of superior pubic ramus Qualifiers: Encounter type: initial encounter Laterality: left Qualified Code(s): S32.512A - Fracture of superior rim of left pubis, initial encounter for closed fracture Closed sacral fracture Qualifiers: Encounter type: initial encounter Zone of sacrum fracture: unspecified portion of sacrum Qualified Code(s): S32.10XA - Unspecified fracture of sacrum, initial encounter for closed fracture Anemia Qualifiers: Anemia type: unspecified type Qualified Code(s): D64.9 - Anemia, unspecified Cirrhosis Qualifiers: Hepatic cirrhosis type: unspecified hepatic cirrhosis Ascites presence: unspecified Qualified Code(s): K74.60 - Unspecified cirrhosis of liver <Joann Montelongo PA-C - Last Filed: 02/27/25 03:25> Patient Disposition: Still a Patient <Joann Montelongo PA-C - Last Filed: 02/27/25 03:25> Condition: Stable <Joann Montelongo PA-C - Last Filed: 02/27/25 03:25>
[2025-02-27] MEDS: ONDANSETRON INJ 4 MG/2 ML VIAL IV PUSH (00:30)
[2025-02-27] MEDS: oxyCODONE HCL (*CRX) 5 MG TAB IR PO (02:54)
[2025-02-27 03:08] LABS: Immature Granulocyte Percent A 0.9 % (0-0.5); Lymphocytes Absolute Auto 3.63 K/mm3 (0.9-3.2); Mean Corpuscular HGB Conc 30.2 g/dl (32-36); Mean Corpuscular Hemoglobin 24.0 pg (26-34); Mean Corpuscular Volume 79.3 fl (80-100); Nucleated Red Blood Cells Absolute Auto 0.000 K/mm3 (0.0-0.012); Nucleated Red Blood Cells Perc 0.0 % (0.0-0.2); Platelet Count Result 288 k/mm3 (150-375); Red Blood Count 2.42 M/mm3 (4.2-5.4); White Blood Count 9.5 K/mm3 (4.5-10.0)
[2025-02-27 03:10] LABS: Hematocrit 19.2 % (37.0-47.0); Hemoglobin 5.8 g/dL (12.0-15.0)
[2025-02-27 03:23] LABS: Alanine Aminotransferase 18 U/L (6-35); Albumin Level 2.9 g/dL (3.5-5.1); Alkaline Phosphatase 223 U/L (38-126); Anion Gap 6 mmol/L (4-12); Aspartate Amino Transferase 37 U/L (14-36); Bilirubin,Total 3.9 mg/dL (0.2-1.3); Blood Urea Nitrogen 20 mg/dL (7-17); Calcium 8.6 mg/dL (8.4-10.2); Carbon Dioxide 22 mmol/L (22-30); Chloride 108 mmol/L (98-107); Estimated CRCL calculation 110 ml/min; Estimated Glomerular Filt Rate > 60; Glucose 85 mg/dL (65-110); Potassium 3.6 mmol/L (3.4-5.0); Sodium 136 mmol/L (137-145); Total Protein 5.8 g/dL (6.3-8.2)
[2025-02-27 03:41] LABS: INR 1.2; Prothrombin Time 15.2 Seconds (11.1-14.7)
[2025-02-27 03:42] LABS: Partial Thromboplastin Time 38.6 Seconds (22.3-36.8)
[2025-02-27] MEDS: SODIUM CHLORIDE 0.9% IV 250 ML 30 ML IV CONT (04:35)
--- NOTE | 2025-02-27 04:57 | WPCEDHO ---
ED Hand Off Checklist All vitals saved:yes IV Site documented:yes All med administrations documented:yes Triage Note Triage Note pt to ED via [facility] 02/26/25 23:00 after a fall. EMS states pt got her foot caught on ground and fell on her left side injuring her L hip and L knee. pt states she has had both her L knee and L hip replacements. EMS administered 100 mcg fentanyl IV in route to ED. pt has hx of liver disease. Allergies infliximab (From Remicade) Allergy (Verified 02/26/25 21:24) low bp Penicillins Allergy (Verified 02/26/25 21:24) Rash Administered/Completed Medications Discontinued Medications Morphine Sulfate (Morphine Sulfate (*Crx) 4 Mg/Ml Inj) 4 mg IV PUSH ONCE STA Stop: 02/27/25 00:23 Last Admin: 02/27/25 00:26 Dose: 4 mg Documented By: KIMBERLY Ondansetron HCl (Ondansetron Inj 4 Mg/2 Ml Vial) 4 mg IV PUSH ONCE STA Stop: 02/27/25 00:24 Last Admin: 02/27/25 00:30 Dose: 4 mg Documented By: KIMBERLY Oxycodone HCl (Oxycodone Hcl (*Crx) 5 Mg Tab Ir) 5 mg PO ONCE STA Stop: 02/27/25 02:37 Last Admin: 02/27/25 02:54 Dose: 5 mg Documented By: KIMBERLY Interventions/Assessments IV / Saline Lock, Insert Start: 02/26/25 21:07 Freq: Status: Active Protocol: Document 02/26/25 21:23 LDD (Rec: 02/26/25 21:23 LDD [id number]) IV Assessment Peripheral Access Left Antecubital IV Catheter Access Initiated Before Arrival IV Insertion Date 02/26/25 Catheter Gauge 20 IV Site Assessment WNL IV Care and WNL Maintenance Last Vital Signs Temperature 98.4 F 02/27/25 04:53 Pulse Rate 107 H 02/27/25 04:53 Respiratory Rate 21 H 02/27/25 04:53 Pulse Oximetry 94 02/27/25 04:53 Blood Pressure 130/64 02/27/25 04:53 Blood Pressure Mean 86 02/27/25 04:53 Blood Pressure Position Supine 02/27/25 04:36 Oxygen Delivery Room Air 02/26/25 21:13 Weight 134.3 kg 02/26/25 21:13 Last Result - Abnormals Only RBC 2.42 M/mm3 (4.2-5.4) L 02/27/25 02:49 Hgb 5.8 g/dL (12.0-15.0) L* 02/27/25 02:49 Hct 19.2 % (37.0-47.0) L* 02/27/25 02:49 MCV 79.3 fl (80-100) L 02/27/25 02:49 MCH 24.0 pg (26-34) L 02/27/25 02:49 MCHC 30.2 g/dl (32-36) L 02/27/25 02:49 RDW 17.3 % (11.5-14.5) H 02/27/25 02:49 MPV 10.6 fl (7.4-10.4) H 02/27/25 02:49 Immature Gran % (Auto) 0.9 % (0-0.5) H 02/27/25 02:49 [place] % (Auto) 9.2 % (2.6-8.5) H 02/27/25 02:49 Lymph # (Auto) 3.63 K/mm3 (0.9-3.2) H 02/27/25 02:49 [place] # (Auto) 0.9 K/mm3 (0.1-0.6) H 02/27/25 02:49 Abs Immat Gran (auto) 0.09 K/mm3 (0.00-0.031) H 02/27/25 02:49 PT 15.2 Seconds (11.1-14.7) H 02/27/25 02:48 APTT 38.6 Seconds (22.3-36.8) H 02/27/25 02:48 Sodium 136 mmol/L (137-145) L 02/27/25 02:49 Chloride 108 mmol/L (98-107) H 02/27/25 02:49 BUN 20 mg/dL (7-17) H 02/27/25 02:49 Total Bilirubin 3.9 mg/dL (0.2-1.3) H 02/27/25 02:49 AST 37 U/L (14-36) H 02/27/25 02:49 Alkaline Phosphatase 223 U/L (38-126) H 02/27/25 02:49 Total Protein 5.8 g/dL (6.3-8.2) L 02/27/25 02:49 Albumin 2.9 g/dL (3.5-5.1) L 02/27/25 02:49 Crossmatch See Detail 02/27/25 03:25 Most Recent Suicide Severity Rating Suicide Severity Rating NO RISK INDICATED 02/26/25 23:00
--- NOTE | 2025-02-27 05:12 | PC.NURSE ---
attempted call to floor/assigned admit nurse to given verbal report x2. charge nurse said to bring pt up at scheduled 20 min emma.
--- NOTE | 2025-02-27 05:31 | ADMGEN ---
This patient, Mehreen Preston, was admitted to [facility] Surg Room 307-01. Patient/family oriented to hospital policies and general routines including ID bracelet, bed and alarms, visiting hours, pain management, procedures, bathroom and other care routines, personal items, smoking policy, room service/diet, and visiting hours. Information on how to activate the Rapid Response Team has been discussed. Patient/Family are encouraged to report perceived risks to care and to ask questions if they do not understand what they are told or what they should do.
--- NOTE | 2025-02-27 06:17 | PM.IMHP2 ---
H&P: HPI History of Present Illness Date/Time: 02/27/25 06:17 Chief Complaint: Extremity pain after fall Narrative: This is a 45 year female patient has a history of rheumatoid arthritis, tachycardia, interstitial lung disease,anemia, and history other autoimmune diseases. Patient stated that she was ambulating at when she felt something attached to her right foot. Therefore she tripped and fell landed on side. She denies hitting her head or losing consciousness. Patient also endorses some pain to her right knee as well. She has had a history of right knee replacement in both hips replaced the past by physician at [facility]. CT the he pelvis shows a subtle nondisplaced fracture of the left sacral wing as well the left superior and inferior pubic rami. The patient was given morphine, oxycodone, and Zofran as well as IV was to the emergency room. Ortho has been consulted. Her H&H was found to be 5.819.2. She has been typed and cross-matched for 2 units of blood. The 1st unit is currently infusing. Patient endorses an autoimmune disease that affects her liver. Her total bilirubin is 3.9, AST is 37, alkaline phosphatase 223 total protein 0.8 albumin is 2.9. The patient is being admitted to observation status on the date of service 02/27/2025. Review of Systems Constitutional: Constitutional: Reports as per HPI and Reports no additional constitutional complaints Eyes: Eyes: Reports as per HPI and Reports no additional eye complaints ENT: Reports system reviewed and no additional complaints, except as documented and Reports Normal hearing present Cardiovascular: Cardiovascular: Reports no additional cardiovascular complaints Respiratory: Respiratory: Reports as per HPI and Reports no additional respiratory complaints Gastrointestinal: Gastrointestinal: Reports as per HPI and Reports no additional gastrointestinal complaints Genitourinary: Genitourinary: Reports no additional female genitourinary complaints Musculoskeletal: Musculoskeletal: Reports no additional musculoskeletal complaints Integumentary/Breasts: Skin/Breast: Reports system reviewed and no additional complaints, except as docu Neurologic: Reports system reviewed and no additional complaints, except as documented and Reports Normal hearing present Psychiatric: Psychiatric: Reports no additional psychiatric complaints and Reports as per HPI Hematologic/Lymphatic: Hematologic/Lymphatic: Reports no additional hematologic/lymphatic complaints Allergic/Immunologic: Allergic/Immunologic: Reports no additional allergic/immunologic complaints [facility] Past Medical History Medical History (Updated 02/27/25 @ 08:38 by Francine Costa APRN) Depression with anxiety 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 H/O total hip arthroplasty Bilaterally performed at [facility] History of dental surgery Hx of cholecystectomy Family History Family History Sibling Diabetes mellitus Grandparent Arthritis, rheumatoid Mother Tachycardia Hypoglycemia Fibromyalgia Social History Social History (Updated 02/27/25 @ 08:21 by Francine Costa APRN) Social History: The patient lives with her . She has no children. She is disabled. She denies any alcohol or drug use. Code status: Full code Smoking status: Never smoker Alcohol intake: never Substance use type: does not use Lack of Transportation: No Lack of Food: Never True Current Housing: I Have Housing Concerned About Future Housing: No Difficulty Paying Gas/Electric Bills: No Difficulty Paying for Meds: No Currently Unemployed: No Education: High School Diploma/GED Difficulty w/ Childcare or Family Care: No Spiritual care concerns: No Meds Home Medications and Allergies Home Medications ?Medication ?Instructions ?Recorded ?Confirmed ?Type amitriptyline 25 mg tablet 50 mg PO QHS 02/27/25 02/27/25 History furosemide 20 mg tablet 20 mg PO QAM 02/27/25 02/27/25 History immune glob,gamma (IgG) 10 14 g subcut WEEKLY 02/27/25 02/27/25 History %-gly-IgA over 50 mcg/mL injection solution (Gammagard Liquid) metoprolol tartrate 25 mg tablet 25 mg PO BID 02/27/25 02/27/25 History pantoprazole 20 mg tablet,delayed 20 mg PO QAM 02/27/25 02/27/25 History release prednisone 5 mg tablet 7.5 mg PO QAM 02/27/25 02/27/25 History spironolactone 50 mg tablet 50 mg PO QAM 02/27/25 02/27/25 History ursodiol 300 mg capsule 1,500 mg PO QAM 02/27/25 02/27/25 History venlafaxine 150 mg 150 mg PO QAM 02/27/25 02/27/25 History capsule,extended release 24 hr venlafaxine 75 mg capsule,extended 75 mg PO QAM 02/27/25 02/27/25 History release 24 hr Allergies Allergy/AdvReac Type Severity Reaction Status Date / Time infliximab (From Remicade) Allergy low bp Verified 02/27/25 06:00 Penicillins Allergy Rash Verified 02/27/25 06:00 Vital Signs Vital Signs - 24 hr 02/26/25 21:13 02/26/25 21:31 02/26/25 21:46 Temperature 97.6 F Pulse Rate 97 91 90 Respiratory Rate 19 20 15 Blood Pressure 120/91 H 130/55 L 135/58 L Pulse Oximetry 100 100 100 Oxygen Delivery Room Air 02/26/25 22:01 02/27/25 00:31 02/27/25 04:04 Temperature 98.3 F Pulse Rate 95 89 107 H Respiratory Rate 14 22 H 20 Blood Pressure 132/60 119/60 132/54 L Pulse Oximetry 99 98 91 Oxygen Delivery 02/27/25 04:36 02/27/25 04:53 02/27/25 06:00 Temperature 98.4 F 98.4 F 98.4 F Pulse Rate 110 H 107 H 109 H Respiratory Rate 21 H 21 H 18 Blood Pressure 122/60 130/64 133/46 L Pulse Oximetry 92 94 93 Oxygen Delivery Exam Const: General: cooperative, no acute distress, well developed, awake, Physically active, average body habitus and well nourished Nutritional Appearance: average body habitus and well nourished Orientation/consciousness: oriented to person, oriented to place, oriented to time and patient oriented x3 Limitations: no limitations HENMT: Head: normal to inspection, normocephalic and atraumatic Eyes: General: appearance normal, both eyes and all related structures Alignment and Position: alignment normal Periorbital: periorbital findings normal Eyelids: eyelids normal Conjunctivae: conjunctivae normal Sclera: sclerae normal Cornea: corneas normal Pupils: Equal, round and reactive pupils present and Pupil accommodation reflex normal EOM: EOMs intact bilaterally Neck: Neck: normal visual inspection Chest: Chest palpation & inspection: normal inspection of the chest Resp: Effort & Inspection: normal respiratory effort Auscultation: wheezes scattered wheezes Cardio: Palpation: normal PMI Rate: tachycardic (Heart rate 101) Rhythm: regular rhythm Heart sounds: S1 normal heart sound present and S2 normal heart sound present Peripheral pulses: Peripheral pulses 2+ throughout GI: Inspection: normal to inspection Percussion: Yes normal to percussion Auscultation: normal bowel sounds Rectal Exam: deferred : General: Yes no CVA tenderness Back/Spine/Pelvis: Back: no CVA tenderness Cervical Spine: cervical ROM normal Skin: General skin exam: normal color Lesions: no lesions Rashes: no rashes Trauma: no lacerations or abrasions Wounds: no wounds Hair: normal Nails: normal Neuro: General: oriented to person, oriented to place, oriented to time and patient oriented x3 Cranial nerves: Yes Equal, round and reactive pupils present and Yes Normal hearing present Cognition (Neuro): normal cognition Speech: normal speech Sensory Exam: normal sensation Extrem: General: normal to inspection Right upper extremity: normal to inspection and shoulder/upper arm Left upper extremity: normal to inspection and shoulder/upper arm Other: 4+ pitting edema to bilateral lower extremities. Psych: Appearance: grossly normal Mental Status: mental status grossly normal Speech and movement: Normal speech and movement present Affect: normal affect Attitude: cooperative Thought process: Normal thought process present Thought content: Yes Normal thought content present Insight: Good insight present (Psych) Judgement: Good judgement present (Psych) Results Labs Labs: Short CBC 02/27/25 Range/Units 02:49 WBC 9.5 (4.5-10.0) K/mm3 Hgb 5.8 L* (12.0-15.0) g/dL Hct 19.2 L* (37.0-47.0) % Plt Count 288 (150-375) k/mm3 [facility] 02/27/25 02:49 Sodium 136 L Potassium 3.6 Chloride 108 H Carbon Dioxide 22 BUN 20 H Creatinine 0.84 Glucose 85 Calcium 8.6 Liver Function 02/27/25 Range/Units 02:49 Total Bilirubin 3.9 H (0.2-1.3) mg/dL AST 37 H (14-36) U/L ALT 18 (6-35) U/L Alkaline Phosphatase 223 H (38-126) U/L Albumin 2.9 L (3.5-5.1) g/dL Imaging CT scan - abdomen: Radiologist's impression: Preliminary read of Pelvic CT shows nondisplaced sacral and left superior and inferior pubic rami fractures. Knee x-ray without acute findings. Quality VTE Prophylaxis VTE prophylaxis: mechanical ordered Assessment and Plan Assessment and plan (1) Multiple closed stable fractures of pubic ramus: Code(s): S32.599A - Other specified fracture of unspecified pubis, initial encounter for closed fracture Status: Acute Assessment and Plan: -preliminary Pelvic CT shows nondisplaced sacral and left superior and inferior pubic rami fractures. Knee x-ray without acute findings. Patient will be admitted for further management, PT/OT evaluation. ED provider Spoke with Orthopedics who will consult -continue with pain management. -patient has a history of rheumatoid arthritis. She has had both hips replaced as well as her right knee. 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 -continue with her daily prednisone dose. However this may prolonged bone healing. -DuoNebs. However we will use Xopenex instead of albuterol due to tachycardia. (3) Anemia: Qualifiers: Anemia type: unspecified type Qualified Code(s): D64.9 - Anemia, unspecified Code(s): D64.9 - Anemia, unspecified Status: Acute Assessment and Plan: -the patient has had a previous blood transfusion due to her liver autoimmune disease. -her H&H was stone to be 5.8 and 19.2. -at this time she is getting 2 units of packed red blood cells. -she has no known active bleeding at this time. -H&H every 6 hours. -check stool for occult bloods and she has fallen. (4) Autoimmune liver disease: Code(s): K76.89 - Other specified diseases of liver Status: Acute Assessment and Plan: -liver enzymes are elevated. -patient has pitting edema chronically. -I did order a venous Doppler to rule out any DVT. -the patient typically takes Aldactone and Lasix for this. -the patient gives herself IgG weekly. She may continue this with her home dose. (5) Tachycardia: Code(s): R00.0 - Tachycardia, unspecified Status: Acute Assessment and Plan: -continue with metoprolol. -patient's heart rate is 101 at this time. (6) Depression with anxiety: Code(s): F41.8 - Other specified anxiety disorders Status: Acute Assessment and Plan: -continue with amitriptyline and venlafaxine.
--- NOTE | 2025-02-27 07:10 | P.PNIM_ITS ---
Assessment and Plan Assessment and Plan (1) Anemia: Qualifiers: Anemia type: unspecified type Qualified Code(s): D64.9 - Anemia, unspecified Code(s): D64.9 - Anemia, unspecified Status: Acute Assessment and Plan: H/H 5.8/19.2 on admission, unknown baseline as no prior records to compare however patient reports hgb typically around 9 Chronic anemia secondary to autoimmune hepatitis, likely further exacerbated due to acute injury No signs of active bleeding, denies blood in urine and stool. No gross bruising or noted hematoma on exam or imaging. Received 2 units pRBC, repeat H/H ordered Tachycardic likely related to chronic svt vs anemia vs pain, blood pressure remains stable (2) Multiple closed stable fractures of pubic ramus: Code(s): S32.599A - Other specified fracture of unspecified pubis, initial encounter for closed fracture Status: Acute Assessment and Plan: Mechanical ground level fall, no LOC or head strike Hip/pelvis XR: Left hip arthroplasty intact without associated fracture or dislocation. No pelvic fracture identified but pubic rami poorly seen due to soft tissue attenuation. Single view right hip arthroplasty intact. Knee XR: Arthroplasty intact without associated fracture or effusion. Small posterior calcifications or joint bodies. Pelvis CT: preliminary read - bilateral arthroplasties appear in normal a lignment with no hip fracture or dislocation. Nondisplaced fractures of the left sacral wing as well as the left superior and inferior pubic rami - SCDs/TEDs - Analgesics: IV morphine - monitor labs in AM - CBC and BMP - PT/OT per ortho recommendations (3) Closed sacral fracture: Qualifiers: Encounter type: initial encounter Zone of sacrum fracture: unspecified portion of sacrum Qualified Code(s): S32.10XA - Unspecified fracture of sacrum, initial encounter for closed fracture Code(s): S32.10XA - Unspecified fracture of sacrum, initial encounter for closed fracture Status: Acute Assessment and Plan: See plan above #2 (4) Tachycardia: Code(s): R00.0 - Tachycardia, unspecified Status: Acute Assessment and Plan: Chronic sinus tachycardia Continue metoprolol 25 mg BID Other Spatial Scientist: Dr. 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 Winkler at [facility] Reports slightly increased edema from baseline but recently had diuretics adjusted per GI Will continue lasix 20 mg daily, spironolactone 50 mg daily and prednisone 7.5 mg daily Venous dopplers ordered to rule out DVT Medical Record Review I have reviewed the following patient records and this information was taken into consideration when formulating the assessment and plan.: previous labs Time Spent With Patient Time with patient: 25 - 35 minutes Subjective Date/time seen: 02/27/25 07:10 Interval history: 45 year old female with past medical history of rheumatoid arthritis, interstitial lung disease, autoimmune hepatitis and Sinus tachycardia presents to the hospital for ground level fall resulting in left hip and knee pain. Patient is pleasant lying comfortably in bed with family at bedside. She continues to endorse pain to the left hip but denies any tingling and numbness. She has no other complaints denying chest pain, palpitations, shortness of breath, nausea/vomiting and abdominal pain. Denies any active bleeding. Review of Systems Review of Systems: All systems reviewed & are unremarkable except as noted in HPI and below Exam Narrative: AF HR 109 RR 22 Spo2 97 BP 125/63 General: female in no acute respiratory distress who is nontoxic appearing, lying semi recumbent in bed. HEENT: Extraocular movement intact. Sclera clear and anicteric. No facial asymmetry. Chest: Lungs are clear to auscultation bilaterally. No wheezes or crackles. CV: Heart was tachycardic with regular rhythm. Abd: Abdomen was soft. Nontender. Nondistended. Positive bowel sounds. Ext: No clubbing, cyanosis. 1+ bilateral pitting edema to lower extremities. DP pulses bilaterally. Neuro: Patient is alert. Speech is clear. Objective Data Vital Signs Vital Signs: Vital Signs - 24 hr 02/26/25 21:13 02/26/25 21:31 02/26/25 21:46 Temperature 97.6 F Pulse Rate 97 91 90 Respiratory Rate 19 20 15 Blood Pressure 120/91 H 130/55 L 135/58 L Pulse Oximetry 100 100 100 Oxygen Delivery Room Air 02/26/25 22:01 02/27/25 00:31 02/27/25 04:04 Temperature 98.3 F Pulse Rate 95 89 107 H Respiratory Rate 14 22 H 20 Blood Pressure 132/60 119/60 132/54 L Pulse Oximetry 99 98 91 Oxygen Delivery 02/27/25 04:36 02/27/25 04:53 02/27/25 05:51 Temperature 98.4 F 98.4 F 98.4 F Pulse Rate 110 H 107 H 109 H Respiratory Rate 21 H 21 H 18 Blood Pressure 122/60 130/64 133/46 L Pulse Oximetry 92 94 93 Oxygen Delivery 02/27/25 06:00 Temperature 98.4 F Pulse Rate 109 H Respiratory Rate 18 Blood Pressure 133/46 L Pulse Oximetry 93 Oxygen Delivery Intake/Output Intake/Output: Intake & Output 02/24/25 02/25/25 02/26/25 02/27/25 23:59 23:59 23:59 23:59 Intake Total 0 Balance 0 Meds/Results Medications: Active Medications Generic Name Dose Route Start Last Admin Trade Name Freq PRN Reason Stop Dose Admin Sodium Chloride 250 mls @ 30 mls/hr 02/27/25 03:11 02/27/25 04:35 Normal Saline Iv IV CONT 02/27/25 11:30 30 mls/hr .[id number] STA Administration Labs Labs: Laboratory Results - last 24 hr 02/27/25 02/27/25 02/27/25 02:48 02:49 03:25 WBC 9.5 RBC 2.42 L Hgb 5.8 L* Hct 19.2 L* MCV 79.3 L MCH 24.0 L MCHC 30.2 L RDW 17.3 H Plt Count 288 MPV 10.6 H Immature Gran % (Auto) 0.9 H Neut % (Auto) 51.5 Lymph % (Auto) 38.1 [place] % (Auto) 9.2 H Eos % (Auto) 0.0 Baso % (Auto) 0.3 Lymph # (Auto) 3.63 H [place] # (Auto) 0.9 H Eos # (Auto) 0.0 Baso # (Auto) 0.0 Abs Immat Gran (auto) 0.09 H Absolute Neuts (auto) 4.9 Absolute Nucleated RBC 0.000 Nucleated RBC % 0.0 PT 15.2 H INR 1.2 APTT 38.6 H Sodium 136 L Potassium 3.6 Chloride 108 H Carbon Dioxide 22 Anion Gap 6 BUN 20 H Creatinine 0.84 Estim Creat Clear Calc 110 Estimated GFR > 60 Glucose 85 Calcium 8.6 Total Bilirubin 3.9 H AST 37 H ALT 18 Alkaline Phosphatase 223 H Total Protein 5.8 L Albumin 2.9 L Blood Type A Positive Antibody Screen Negative Crossmatch See Detail Quality VTE Prophylaxis VTE prophylaxis: mechanical ordered
[2025-02-27 08:26] LABS: Hematocrit 21.8 % (37.0-47.0)
[2025-02-27 08:38] LABS: Hemoglobin 6.7 g/dL (12.0-15.0)
[2025-02-27] MEDS: MORPHINE SULFATE (*CRX) 4 MG/ML INJ 2 MG IV PUSH ×3 (09:48→20:10)
[2025-02-27] MEDS: IPRATROPIUM BR 0.02% INH SOLN 0.5 MG/2.5 ML VIAL INHALATION ×2 (09:59→21:30)
[2025-02-27] MEDS: PANTOPRAZOLE SOD SESQUIHYDRATE 20 MG TAB PO (10:03)
[2025-02-27] MEDS: FUROSEMIDE 20 MG TABLET PO (10:03)
[2025-02-27] MEDS: SPIRONOLACTONE 50 MG TABLET PO (10:03)
[2025-02-27] MEDS: METOPROLOL TARTRATE 25 MG TABLET PO ×2 (10:07→20:10)
[2025-02-27] MEDS: VENLAFAXINE HCL XR 75 MG CAP.ER.24H 225 MG PO (10:09)
[2025-02-27] MEDS: TUBING, BLOOD PLUM PUMP TUBING 1 EACH XX (10:10)
[2025-02-27] MEDS: SODIUM CHLORIDE 0.9% IV 250 ML 30 ML (10:10)
[2025-02-27 14:53] LABS: Hematocrit 25.4 % (37.0-47.0); Hemoglobin 8.1 g/dL (12.0-15.0)
--- NOTE | 2025-02-27 19:01 | PHAR ---
HOME MED VERIFIED GAMMAGARD 10% LIQUID 14 GRAMS SUBQ WEEKLY
[2025-02-27] MEDS: AMITRIPTYLINE HCL 25 MG TABLET 50 MG PO (20:09)
[2025-02-27 21:04] LABS: Hematocrit 24.3 % (37.0-47.0); Hemoglobin 7.7 g/dL (12.0-15.0)
[2025-02-28] VITALS (14 sets, daily range): BP systolic 120–137; BP diastolic 46–65; PULSE 90–104; RESP 18–22; TEMP 36.9–37.6; O2SAT 92–97
[2025-02-28] MEDS: MORPHINE SULFATE (*CRX) 4 MG/ML INJ 2 MG IV PUSH ×4 (00:03→12:33)
[2025-02-28] MEDS: IPRATROPIUM BR 0.02% INH SOLN 0.5 MG/2.5 ML VIAL INHALATION ×3 (02:18→19:54)
[2025-02-28 03:22] LABS: Hematocrit 24.0 % (37.0-47.0); Hemoglobin 7.6 g/dL (12.0-15.0); Mean Corpuscular HGB Conc 31.7 g/dl (32-36); Mean Corpuscular Hemoglobin 25.1 pg (26-34); Mean Corpuscular Volume 79.2 fl (80-100); Platelet Count Result 266 k/mm3 (150-375); Red Blood Count 3.03 M/mm3 (4.2-5.4); White Blood Count 7.8 K/mm3 (4.5-10.0)
[2025-02-28 03:36] LABS: Alanine Aminotransferase 20 U/L (6-35); Albumin Level 2.7 g/dL (3.5-5.1); Alkaline Phosphatase 213 U/L (38-126); Anion Gap 5 mmol/L (4-12); Aspartate Amino Transferase 41 U/L (14-36); Bilirubin,Total 4.3 mg/dL (0.2-1.3); Blood Urea Nitrogen 23 mg/dL (7-17); Calcium 8.5 mg/dL (8.4-10.2); Carbon Dioxide 22 mmol/L (22-30); Chloride 107 mmol/L (98-107); Estimated CRCL calculation 86 ml/min; Estimated Glomerular Filt Rate 55; Glucose 96 mg/dL (65-110); Potassium 3.5 mmol/L (3.4-5.0); Sodium 134 mmol/L (137-145); Total Protein 5.4 g/dL (6.3-8.2)
[2025-02-28] MEDS: TUBING, BLOOD PLUM PUMP TUBING 1 EACH XX (04:04)
--- NOTE | 2025-02-28 08:24 | PM.IMPN2 ---
Assessment and Plan Assessment and Plan (1) Anemia: Qualifiers: Anemia type: unspecified type Qualified Code(s): D64.9 - Anemia, unspecified Code(s): D64.9 - Anemia, unspecified Status: Acute Assessment and Plan: H/H 5.8/19.2 on admission, unknown baseline as no prior records to compare however patient reports hgb typically around 9 Chronic anemia secondary to autoimmune hepatitis, likely further exacerbated due to acute injury No signs of active bleeding, denies blood in urine and stool. No gross bruising or noted hematoma on exam or imaging. Received 2 units pRBC, repeat H/H improved. Currently 7.6/24 on am labs. Tachycardic likely related to chronic sinus tach vs anemia vs pain, blood pressure remains stable (2) Multiple closed stable fractures of pubic ramus: Code(s): S32.599A - Other specified fracture of unspecified pubis, initial encounter for closed fracture Status: Acute Assessment and Plan: Mechanical ground level fall, no LOC or head strike Hip/pelvis XR: Left hip arthroplasty intact without associated fracture or dislocation. No pelvic fracture identified but pubic rami poorly seen due to soft tissue attenuation. Single view right hip arthroplasty intact. Knee XR: Arthroplasty intact without associated fracture or effusion. Small posterior calcifications or joint bodies. Pelvis CT: preliminary read - bilateral arthroplasties appear in normal alignment with no hip fracture or dislocation. Nondisplaced fractures of the left sacral wing as well as the left superior and inferior pubic rami - SCDs/TEDs - Analgesics: tylenol 500 mg q6h scheduled, IV morphine 2 mg IV q4h, oxycodone 5 mg q4prn - monitor labs in AM - CBC and BMP - PT/OT pending ortho recommendations following official ct read Pelvis CT has not officially been read. Discussed radiology read with Dr. Ching. Radiologist unable to give official read as he is only reading stat imaging. Discussed with Dr. Miller who plans to evaluate patient in the am. He states patient to remain bed bound pending official ct read as groin pain can be related to periprosthetic fracture vs pubic rami fractures. 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 Winkler at [facility] Reports slightly increased edema from baseline but improving from yesterday, recently had diuretics adjusted per GI Will continue lasix 20 mg daily, spironolactone 50 mg daily and prednisone 7.5 mg daily Venous dopplers ordered to rule out DVT Medical Record Review I have reviewed the following patient records and this information was taken into consideration when formulating the assessment and plan.: previous labs Consultations Consultations: I have discussed the care of this pt with the consulting providers. (ortho) Time Spent With Patient Time with patient: 25 - 35 minutes Subjective Date/time seen: 02/28/25 08:24 Interval history: 45 year old female with past medical history of rheumatoid arthritis, interstitial lung disease, autoimmune hepatitis and Sinus tachycardia presents to the hospital for ground level fall resulting in left hip and knee pain. Patient is pleasant lying comfortably in bed. She continues to endorse left groin/hip pain. Denies tingling/numbness to the extremities. Pain fairly controlled on the current regimen. No acute events overnight. No other complaints. Review of Systems Review of Systems: All systems reviewed & are unremarkable except as noted in HPI and below Exam Narrative: AF HR 95 RR 19 Spo2 96 BP 120/65 General: female in no acute respiratory distress who is nontoxic appearing, lying semi recumbent in bed. HEENT: Extraocular movement intact. Mild jaundice. No facial asymmetry. Chest: Lungs are clear to auscultation bilaterally. No wheezes or crackles. CV: Heart was tachycardic with regular rhythm. Abd: Abdomen was soft. Nontender. Nondistended. Positive bowel sounds. Ext: No clubbing, cyanosis. bilateral pitting edema to lower extremities, improved from yesterday. DP pulses bilaterally. No bruising to the left hip noted. Neuro: Patient is alert. Speech is clear. Objective Data Vital Signs Vital Signs: Vital Signs - 24 hr 02/27/25 09:54 02/27/25 09:59 02/27/25 09:59 Temperature 99.2 F Pulse Rate 110 H 110 H 110 H Respiratory Rate 20 20 20 Blood Pressure 124/61 Pulse Oximetry 96 98 Oxygen Delivery Room Air Fraction of Inspired Oxygen 21 02/27/25 10:05 02/27/25 10:07 02/27/25 10:13 Temperature 99.6 F Pulse Rate 109 H 110 H 113 H Respiratory Rate 20 20 Blood Pressure 119/59 L Pulse Oximetry 94 Oxygen Delivery Fraction of Inspired Oxygen 02/27/25 10:14 02/27/25 12:00 02/27/25 16:00 Temperature 99.8 F H 99.7 F H 99.8 F H Pulse Rate 102 H 109 H 104 H Respiratory Rate 20 22 H 20 Blood Pressure 112/50 L 125/63 132/67 Pulse Oximetry 94 97 98 Oxygen Delivery Fraction of Inspired Oxygen 02/27/25 20:00 02/27/25 20:00 02/27/25 21:58 Temperature 99.0 F Pulse Rate 96 96 Respiratory Rate 20 16 Blood Pressure 125/52 L Pulse Oximetry 96 96 Oxygen Delivery Room Air Room Air Fraction of Inspired Oxygen 21 02/27/25 21:58 02/28/25 00:00 02/28/25 02:19 Temperature 99.1 F Pulse Rate 96 99 98 Respiratory Rate 16 20 20 Blood Pressure 132/56 L Pulse Oximetry 94 92 Oxygen Delivery Room Air Fraction of Inspired Oxygen 21 02/28/25 02:19 02/28/25 02:29 02/28/25 04:10 Temperature 99.6 F Pulse Rate 92 94 104 H Respiratory Rate 20 22 H 20 Blood Pressure 122/46 L Pulse Oximetry 94 Oxygen Delivery Fraction of Inspired Oxygen 02/28/25 07:50 Temperature 99.1 F Pulse Rate 104 H Respiratory Rate 18 Blood Pressure 125/60 Pulse Oximetry 96 Oxygen Delivery Fraction of Inspired Oxygen Intake/Output Intake/Output: Intake & Output 02/25/25 02/26/25 02/27/25 02/28/25 23:59 23:59 23:59 23:59 Intake Total 1453 30 Output Total 1700 Balance -247 30 Meds/Results Medications: Active Medications Generic Name Dose Route Start Last Admin Trade Name Freq PRN Reason Stop Dose Admin Amitriptyline HCl 50 mg 02/27/25 21:00 02/27/25 20:09 Amitriptyline Hcl 25 Mg Tablet PO 50 mg QHS KYLEE Administration Furosemide 20 mg 02/27/25 09:00 02/27/25 10:03 Furosemide 20 Mg Tablet PO 20 mg QAM KYLEE Administration Ipratropium [place] 0.5 mg 02/27/25 08:00 02/28/25 02:18 Ipratropium Br 0.02% Inh Soln 0.5 Mg/2.5 Ml Vial INHALATION 0.5 mg Q6HRT KYLEE Administration Levalbuterol HCl 0.63 mg 02/27/25 08:00 02/28/25 02:18 Levalbuterol Neb 1.25 Mg/3 Ml INHALATION 0.63 mg Q6HRT KYLEE Administration Metoprolol Tartrate 25 mg 02/27/25 09:00 02/27/25 20:10 Metoprolol Tartrate 25 Mg Tablet PO 25 mg Q12HR KYLEE Administration Miscellaneous Information 0 each 02/27/25 00:01 Immun Glob G(Igg)-Gly-Iga Ov50 [Gammagard Liquid] 10 % Solution Send To Pharmacy For Veri XX 03/29/25 00:00 CLARIFY KYLEE Morphine Sulfate 2 mg 02/27/25 08:26 02/28/25 04:02 Morphine Sulfate (*Crx) 4 Mg/Ml Inj IV PUSH 2 mg Q4H PRN Administration Pain Rated 7-10 Home Med (Immun 14 gm 02/27/25 09:00 Glob G(Igg)-Gly-Iga SUB-Q 03/29/25 08:59 Ov50 [Gammagard WEEKLY KYLEE Liquid] 10 % Solution) Pantoprazole Sodium 20 mg 02/27/25 09:00 02/27/25 10:03 Pantoprazole Sod Sesquihydrate 20 Mg Tab PO 20 mg QAM KYLEE Administration Prednisone 7.5 mg 02/27/25 09:00 02/27/25 10:01 Prednisone 2.5 Mg Tablet PO 7.5 mg QAM KYLEE Administration Spironolactone 50 mg 02/27/25 09:00 02/27/25 10:03 Spironolactone 50 Mg Tablet PO 50 mg QAM KYLEE Administration Ursodiol 1,500 mg 02/27/25 17:00 02/27/25 16:30 Ursodiol 300 Mg Capsule PO 1,500 mg DAILY@1700 [facility] Administration Venlafaxine HCl 225 mg 02/27/25 09:00 02/27/25 10:09 Venlafaxine Hcl Xr 75 Mg Cap.Er.24h PO 225 mg QAM KYLEE Administration Labs Labs: Laboratory Results - last 24 hr 02/27/25 02/27/25 02/27/25 03:25 08:16 14:48 WBC RBC Hgb 6.7 L* 8.1 L Hct 21.8 L 25.4 L MCV MCH MCHC RDW Plt Count MPV Sodium Potassium Chloride Carbon Dioxide Anion Gap BUN Creatinine Estim Creat Clear Calc Estimated GFR Glucose Calcium Total Bilirubin AST ALT Alkaline Phosphatase Total Protein Albumin Blood Type A Positive Antibody Screen Negative Crossmatch See Detail 02/27/25 02/28/25 20:56 03:18 WBC 7.8 RBC 3.03 L Hgb 7.7 L 7.6 L Hct 24.3 L 24.0 L MCV 79.2 L MCH 25.1 L MCHC 31.7 L RDW 16.1 H Plt Count 266 MPV 10.1 Sodium 134 L Potassium 3.5 Chloride 107 Carbon Dioxide 22 Anion Gap 5 BUN 23 H Creatinine 1.08 H Estim Creat Clear Calc 86 Estimated GFR 55 L Glucose 96 Calcium 8.5 Total Bilirubin 4.3 H AST 41 H ALT 20 Alkaline Phosphatase 213 H Total Protein 5.4 L Albumin 2.7 L Blood Type Antibody Screen Crossmatch Quality VTE Prophylaxis VTE prophylaxis: mechanical ordered
[2025-02-28] MEDS: PANTOPRAZOLE SOD SESQUIHYDRATE 20 MG TAB PO (08:29)
[2025-02-28] MEDS: FUROSEMIDE 20 MG TABLET PO (08:33)
[2025-02-28] MEDS: VENLAFAXINE HCL XR 75 MG CAP.ER.24H 225 MG PO (08:33)
[2025-02-28] MEDS: SPIRONOLACTONE 50 MG TABLET PO (08:33)
[2025-02-28] MEDS: METOPROLOL TARTRATE 25 MG TABLET PO ×2 (08:34→21:25)
[2025-02-28] MEDS: oxyCODONE HCL (*CRX) 5 MG TAB IR PO ×2 (14:57→21:26)
[2025-02-28] MEDS: ACETAMINOPHEN 500 MG TABLET PO ×2 (15:47→21:26)
--- NOTE | 2025-02-28 16:01 | PCPTNOTE ---
waiting for ortho consult, will follow
[2025-02-28] MEDS: AMITRIPTYLINE HCL 25 MG TABLET 50 MG PO (21:25)
[2025-03-01] VITALS (9 sets, daily range): BP systolic 109–147; BP diastolic 50–65; PULSE 78–96; RESP 16–20; TEMP 36–37.7; O2SAT 97–100
[2025-03-01] MEDS: IPRATROPIUM BR 0.02% INH SOLN 0.5 MG/2.5 ML VIAL INHALATION (02:06)
[2025-03-01 06:11] LABS: Hematocrit 24.3 % (37.0-47.0); Hemoglobin 7.6 g/dL (12.0-15.0); Mean Corpuscular HGB Conc 31.3 g/dl (32-36); Mean Corpuscular Hemoglobin 24.6 pg (26-34); Mean Corpuscular Volume 78.6 fl (80-100); Platelet Count Result 254 k/mm3 (150-375); Red Blood Count 3.09 M/mm3 (4.2-5.4); White Blood Count 6.4 K/mm3 (4.5-10.0)
[2025-03-01 06:22] LABS: Alanine Aminotransferase 20 U/L (6-35); Albumin Level 2.7 g/dL (3.5-5.1); Alkaline Phosphatase 227 U/L (38-126); Anion Gap 5 mmol/L (4-12); Aspartate Amino Transferase 40 U/L (14-36); Bilirubin,Total 4.2 mg/dL (0.2-1.3); Blood Urea Nitrogen 27 mg/dL (7-17); Calcium 8.4 mg/dL (8.4-10.2); Carbon Dioxide 23 mmol/L (22-30); Chloride 104 mmol/L (98-107); Estimated CRCL calculation 79 ml/min; Estimated Glomerular Filt Rate 50; Glucose 108 mg/dL (65-110); Potassium 3.5 mmol/L (3.4-5.0); Sodium 132 mmol/L (137-145); Total Protein 5.5 g/dL (6.3-8.2)
--- NOTE | 2025-03-01 08:20 | PCRCNOTE ---
pt didnt want treatment. No SOB reported. would like changed to PRN.
[2025-03-01] MEDS: oxyCODONE HCL (*CRX) 5 MG TAB IR PO ×4 (08:42→22:13)
[2025-03-01] MEDS: METOPROLOL TARTRATE 25 MG TABLET PO ×2 (08:42→21:20)
[2025-03-01] MEDS: VENLAFAXINE HCL XR 75 MG CAP.ER.24H 225 MG PO (08:42)
--- NOTE | 2025-03-01 08:42 | PM.CNOR ---
Assessment and Plan Assessment and plan (1) Pelvic fracture: Code(s): S32.9XXA - Fracture of unspecified parts of lumbosacral spine and pelvis, initial encounter for closed fracture Status: Acute Plan 45 yr old female with a long history of RA with Bilateral TURNER and Left TKA all done around [address] Osmani Logan at [place]. Lives at home with significant other. She tripped (not sure how) landed on to Left Hip. Noted to have left pubic rami fracture Left side with no periprosthetic fracture by CT Scan. RA also now involving her liver. - plan physical therapy and social work consult today. - weight bearing as tolerated. - sitting up most of the day in a chair - incentive spirometer (ordered) - doppler negative for DVT - significant other in room and involved in patients care. - follow up with my office in 2 weeks. History of Present Illness HPI Consult date: 03/01/25 Chief complaint: Superior and inferior pubic rami fractures Left Narrative: 45 yr old female with a long history of RA with Bilateral TURNER and Left TKA all done around [address] Osmani Logan at [place]. Lives at home with significant other. She tripped (not sure how) landed on to Left Hip. Noted to have left pubic rami fracture Left side with no periprosthetic fracture by CT Scan. RA also now involving her liver. 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 H/O total hip arthroplasty Bilaterally performed at [facility] History of dental surgery Hx of cholecystectomy Family History Family History Sibling Diabetes mellitus Grandparent Arthritis, rheumatoid Mother Tachycardia Hypoglycemia Fibromyalgia Social History Social History (Updated 02/27/25 @ 08:21 by Francine Costa APRN) Social History: The patient lives with her . She has no children. She is disabled. She denies any alcohol or drug use. Code status: Full code Smoking status: Never smoker Alcohol intake: never Substance use type: does not use Lack of Transportation: No Lack of Food: Never True Current Housing: I Have Housing Concerned About Future Housing: No Difficulty Paying Gas/Electric Bills: No Difficulty Paying for Meds: No Currently Unemployed: No Education: High School Diploma/GED Difficulty w/ Childcare or Family Care: No Spiritual care concerns: No Meds Home Medications and Allergies Home Medications ?Medication ?Instructions ?Recorded ?Confirmed ?Type amitriptyline 25 mg tablet 50 mg PO QHS 02/27/25 02/27/25 History furosemide 20 mg tablet 20 mg PO QAM 02/27/25 02/27/25 History immune glob,gamma (IgG) 10 14 g subcut WEEKLY 02/27/25 02/27/25 History %-gly-IgA over 50 mcg/mL injection solution (Gammagard Liquid) metoprolol tartrate 25 mg tablet 25 mg PO BID 02/27/25 02/27/25 History pantoprazole 20 mg tablet,delayed 20 mg PO QAM 02/27/25 02/27/25 History release prednisone 5 mg tablet 7.5 mg PO QAM 02/27/25 02/27/25 History spironolactone 50 mg tablet 50 mg PO QAM 02/27/25 02/27/25 History ursodiol 300 mg capsule 1,500 mg PO QAM 02/27/25 02/27/25 History venlafaxine 150 mg 150 mg PO QAM 02/27/25 02/27/25 History capsule,extended release 24 hr venlafaxine 75 mg capsule,extended 75 mg PO QAM 02/27/25 02/27/25 History release 24 hr Allergies Allergy/AdvReac Type Severity Reaction Status Date / Time infliximab (From Remicade) Allergy low bp Verified 02/27/25 06:00 Penicillins Allergy Rash Verified 02/27/25 06:00 Vital Signs Vital Signs - 24 hr 02/28/25 12:00 02/28/25 13:17 02/28/25 13:26 Temperature 37.2 C Pulse Rate 100 100 95 Respiratory Rate 18 19 19 Blood Pressure 120/65 Pulse Oximetry 96 02/28/25 16:00 02/28/25 19:54 02/28/25 20:00 Temperature 37.0 C 36.9 C Pulse Rate 91 96 90 Respiratory Rate 18 20 19 Blood Pressure 137/54 L 122/52 L Pulse Oximetry 96 97 02/28/25 20:07 02/28/25 21:25 03/01/25 00:00 Temperature 37.7 C H Pulse Rate 92 90 83 Respiratory Rate 20 18 Blood Pressure 118/58 L Pulse Oximetry 98 03/01/25 02:07 03/01/25 02:17 03/01/25 04:00 Temperature 37.3 C Pulse Rate 86 96 84 Respiratory Rate 20 20 17 Blood Pressure 118/65 Pulse Oximetry 98 Exam Narrative: Left knee with midline incision and no tenderness to palpation. bilateral legs with pitting edema. moderate left groin pain with range of motion of left hip. no pain with range of motion of right hip. able to do straight leg raise. Const: General: cooperative, comfortable, no acute distress, well developed, alert, awake, Cushingoid facies and obese Nutritional Appearance: obese Orientation/consciousness: patient oriented x3 Results Labs 03/01/25 05:00 03/01/25 05:00 Labs: Abnormal lab results 03/01/25 Range/Units 05:00 RBC 3.09 L (4.2-5.4) M/mm3 Hgb 7.6 L (12.0-15.0) g/dL Hct 24.3 L (37.0-47.0) % MCV 78.6 L (80-100) fl MCH 24.6 L (26-34) pg MCHC 31.3 L (32-36) g/dl RDW 16.2 H (11.5-14.5) % MPV 11.0 H (7.4-10.4) fl Sodium 132 L (137-145) mmol/L BUN 27 H (7-17) mg/dL Creatinine 1.17 H (0.7-1.0) mg/dL Estimated GFR 50 L (59 - ) Total Bilirubin 4.2 H (0.2-1.3) mg/dL AST 40 H (14-36) U/L Alkaline Phosphatase 227 H (38-126) U/L Total Protein 5.5 L (6.3-8.2) g/dL Albumin 2.7 L (3.5-5.1) g/dL H & H 02/27/25 02/27/25 02/27/25 Range/Units 02:49 08:16 14:48 Hgb 5.8 L* 6.7 L* 8.1 L (12.0-15.0) g/dL Hct 19.2 L* 21.8 L 25.4 L (37.0-47.0) % 02/27/25 02/28/25 03/01/25 Range/Units 20:56 03:18 05:00 Hgb 7.7 L 7.6 L 7.6 L (12.0-15.0) g/dL Hct 24.3 L 24.0 L 24.3 L (37.0-47.0) % Coagulation 02/27/25 Range/Units 02:48 INR 1.2 All other labs normal. Diagnostic results Hip x-ray: image reviewed Hip CT: image reviewed Knee x-ray: image reviewed
[2025-03-01] MEDS: FUROSEMIDE 20 MG TABLET PO (08:43)
[2025-03-01] MEDS: SPIRONOLACTONE 50 MG TABLET PO (08:43)
[2025-03-01] MEDS: ACETAMINOPHEN 500 MG TABLET PO ×3 (08:43→21:20)
[2025-03-01] MEDS: PANTOPRAZOLE SOD SESQUIHYDRATE 20 MG TAB PO (08:43)
--- NOTE | 2025-03-01 14:11 | P.PNIM_ITS ---
Assessment and Plan Assessment and Plan (1) Anemia: Qualifiers: Anemia type: unspecified type Qualified Code(s): D64.9 - Anemia, unspecified Code(s): D64.9 - Anemia, unspecified Status: Acute Assessment and Plan: H/H 5.8/19.2 on admission, per PCP 02/03 Hgb 7.2 Chronic anemia secondary to autoimmune hepatitis, likely further exacerbated due to acute injury and possible iron deficiency as patient states previously on iron supplements and self discontinued Iron panel ordered No signs of active bleeding, denies blood in urine and stool. No gross bruising or noted hematoma on exam or imaging. Received 2 units pRBC, repeat H/H improved. Currently 7.6/24.3 on am labs. (2) Multiple closed stable fractures of pubic ramus: Code(s): S32.599A - Other specified fracture of unspecified pubis, initial encounter for closed fracture Status: Acute Assessment and Plan: Mechanical ground level fall, no LOC or head strike Hip/pelvis XR: Left hip arthroplasty intact without associated fracture or dislocation. No pelvic fracture identified but pubic rami poorly seen due to soft tissue attenuation. Single view right hip arthroplasty intact. Knee XR: Arthroplasty intact without associated fracture or effusion. Small posterior calcifications or joint bodies. Pelvis CT: Minimally displaced fractures of the left sacral ala, left superior pubic ramus and left pubic body. 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 - SCDs/TEDs - Analgesics: tylenol 500 mg q6h scheduled, IV morphine 2 mg IV q4h, oxycodone 5 mg q4prn - monitor labs in AM - CBC and BMP - PT/OT recommending SNF placement, patient agreeable weight bearing as tolerated per ortho - Ortho consulted No plan for surgery. 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 Winkler and Transplant Dr. Willard at [facility] Discussed patient with her PCP Dr. Satish Tomlinson who states that prior labs 02/03: tot bili 7, with low AST and ALT and alk phos in the 200s. LFTs at baseline. Will continue lasix 20 mg daily, spironolactone 50 mg daily and prednisone 7.5 mg daily Venous dopplers ordered to rule out DVT, negative Medical Record Review I have reviewed the following patient records and this information was taken into consideration when formulating the assessment and plan.: previous labs Consultations Consultations: I have discussed the care of this pt with the consulting providers. (PCP) Time Spent With Patient Time with patient: 25 - 35 minutes Subjective Date/time seen: 03/01/25 14:11 Interval history: 45 year old female with past medical history of rheumatoid arthritis, interstitial lung disease, autoimmune hepatitis and Sinus tachycardia presents to the hospital for ground level fall resulting in left hip and knee pain. Patient is pleasant sitting up in her chair and working with occupational therapy with family at bedside. She continues to endorse hip/groin pain that is worse on the left side. Pain is seemingly well controlled on the current regimen. She has no other complaints denying chest pain, palpitations, shortness a breath, nausea/vomiting, and abdominal pain. Discussed patient with her primary care provider Dr. Satish tomlinson and informed her of the plan per patient request. Per Dr. Satish tomlinson hemoglobin and LFTs appear at baseline. Review of Systems Review of Systems: All systems reviewed & are unremarkable except as noted in HPI and below Exam Narrative: AF HR 78 RR 16 Spo2 97 BP 111/50 General: female in no acute respiratory distress who is nontoxic appearing, sitting up in chair and working with OT HEENT: Extraocular movement intact. Mild jaundice. No facial asymmetry. Chest: Lungs are clear to auscultation bilaterally. No wheezes or crackles. CV: Heart was regular rate rhythm. Abd: Abdomen was soft. Nontender. Nondistended. Positive bowel sounds. Ext: No clubbing, cyanosis. trivial edema to lower extremities but pitting to the feet, improved from yesterday. DP pulses bilaterally. No bruising to the left hip noted. Neuro: Patient is alert. Speech is clear. Objective Data Vital Signs Vital Signs: Vital Signs - 24 hr 02/28/25 16:00 02/28/25 19:54 02/28/25 20:00 Temperature 98.6 F 98.4 F Pulse Rate 91 96 90 Respiratory Rate 18 20 19 Blood Pressure 137/54 L 122/52 L Pulse Oximetry 96 97 Oxygen Delivery 02/28/25 20:07 02/28/25 21:25 03/01/25 00:00 Temperature 99.8 F H Pulse Rate 92 90 83 Respiratory Rate 20 18 Blood Pressure 118/58 L Pulse Oximetry 98 Oxygen Delivery 03/01/25 02:07 03/01/25 02:17 03/01/25 04:00 Temperature 99.2 F Pulse Rate 86 96 84 Respiratory Rate 20 20 17 Blood Pressure 118/65 Pulse Oximetry 98 Oxygen Delivery 03/01/25 08:00 03/01/25 08:00 03/01/25 08:42 Temperature 97.2 F L Pulse Rate 81 81 Respiratory Rate 16 Blood Pressure 147/60 H Pulse Oximetry 100 Oxygen Delivery Room Air 03/01/25 09:58 03/01/25 12:00 Temperature 97.1 F L Pulse Rate 78 Respiratory Rate 16 Blood Pressure 111/50 L Pulse Oximetry 97 Oxygen Delivery Room Air Intake/Output Intake/Output: Intake & Output 02/26/25 02/27/25 02/28/25 03/01/25 23:59 23:59 23:59 23:59 Intake Total 1453 150 360 Output Total 1700 2450 Balance -247 -2300 360 Meds/Results Medications: Active Medications Generic Name Dose Route Start Last Admin Trade Name Freq PRN Reason Stop Dose Admin Acetaminophen 500 mg 02/28/25 15:00 03/01/25 14:00 Acetaminophen 500 Mg Tablet PO 500 mg Q6H KYLEE Administration Amitriptyline HCl 50 mg 02/27/25 21:00 02/28/25 21:25 Amitriptyline Hcl 25 Mg Tablet PO 50 mg QHS KYLEE Administration Furosemide 20 mg 02/27/25 09:00 03/01/25 08:43 Furosemide 20 Mg Tablet PO 20 mg QAM KYLEE Administration Ipratropium [place] 0.5 mg 03/01/25 12:35 Ipratropium Br 0.02% Inh Soln 0.5 Mg/2.5 Ml Vial INHALATION Q6HRT PRN Shortness Of Breath Or Wheezing Levalbuterol HCl 0.63 mg 03/01/25 12:35 Levalbuterol Neb 1.25 Mg/3 Ml INHALATION Q6HRT PRN Shortness Of Breath Or Wheezing Metoprolol Tartrate 25 mg 02/27/25 09:00 03/01/25 08:42 Metoprolol Tartrate 25 Mg Tablet PO 25 mg Q12HR KYLEE Administration Morphine Sulfate 2 mg 02/27/25 08:26 02/28/25 12:33 Morphine Sulfate (*Crx) 4 Mg/Ml Inj IV PUSH 2 mg Q4H PRN Administration Pain Rated 7-10 Home Med (Immun 14 gm 02/28/25 10:20 02/28/25 14:02 Glob G(Igg)-Gly-Iga SUB-Q 03/30/25 10:19 14 gm Ov50 [Gammagard WEEKLY KYLEE Administration Liquid] 10 % Solution) Oxycodone HCl 5 mg 02/28/25 14:42 03/01/25 13:53 Oxycodone Hcl (*Crx) 5 Mg Tab Ir PO 5 mg Q4H PRN Administration Pain Rated 7-10 Pantoprazole Sodium 20 mg 02/27/25 09:00 03/01/25 08:43 Pantoprazole Sod Sesquihydrate 20 Mg Tab PO 20 mg QAM KYLEE Administration Prednisone 7.5 mg 02/27/25 09:00 03/01/25 08:42 Prednisone 2.5 Mg Tablet PO 7.5 mg QAM KYLEE Administration Spironolactone 50 mg 02/27/25 09:00 03/01/25 08:43 Spironolactone 50 Mg Tablet PO 50 mg QAM KYLEE Administration Ursodiol 1,500 mg 02/27/25 17:00 02/28/25 16:42 Ursodiol 300 Mg Capsule PO 1,500 mg DAILY@1700 KYLEE Administration Venlafaxine HCl 225 mg 02/27/25 09:00 03/01/25 08:42 Venlafaxine Hcl Xr 75 Mg Cap.Er.24h PO 225 mg QAM KYLEE Administration Radiology Results: ITS Impressions Venous Doppler Study 02/28/25 16:26 IMPRESSION: 1. No evidence of DVT involving major veins of both Pelvis CT 02/28/25 19:30 IMPRESSION: 1. Minimally displaced fractures of the left sacral ala, left superior pubic ramus and left pubic body. 2. 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 Labs Labs: Laboratory Results - last 24 hr 03/01/25 05:00 WBC 6.4 RBC 3.09 L Hgb 7.6 L Hct 24.3 L MCV 78.6 L MCH 24.6 L MCHC 31.3 L RDW 16.2 H Plt Count 254 MPV 11.0 H Sodium 132 L Potassium 3.5 Chloride 104 Carbon Dioxide 23 Anion Gap 5 BUN 27 H Creatinine 1.17 H Estim Creat Clear Calc 79 Estimated GFR 50 L Glucose 108 Calcium 8.4 Total Bilirubin 4.2 H AST 40 H ALT 20 Alkaline Phosphatase 227 H Total Protein 5.5 L Albumin 2.7 L Quality VTE Prophylaxis VTE prophylaxis: mechanical ordered
[2025-03-01 16:15] LABS: Iron 26 ug/dL (37-170)
[2025-03-01 16:24] LABS: Percent Iron Saturation 8 % (20-50)
[2025-03-01 16:50] LABS: Ferritin 23.40 ng/mL (6.24-137)
[2025-03-01] MEDS: DIAZEPAM 1 MG PO (21:20)
[2025-03-01] MEDS: AMITRIPTYLINE HCL 25 MG TABLET 50 MG PO (21:20)
[2025-03-02] VITALS (9 sets, daily range): BP systolic 103–118; BP diastolic 47–61; PULSE 74–81; RESP 16–20; TEMP 35.8–36.9; O2SAT 98–99
[2025-03-02] MEDS: oxyCODONE HCL (*CRX) 5 MG TAB IR PO ×5 (02:11→22:27)
[2025-03-02] MEDS: ACETAMINOPHEN 500 MG TABLET PO ×4 (02:11→22:29)
[2025-03-02 06:42] LABS: Hematocrit 23.9 % (37.0-47.0); Hemoglobin 7.7 g/dL (12.0-15.0); Mean Corpuscular HGB Conc 32.2 g/dl (32-36); Mean Corpuscular Hemoglobin 25.6 pg (26-34); Mean Corpuscular Volume 79.4 fl (80-100); Platelet Count Result 245 k/mm3 (150-375); Red Blood Count 3.01 M/mm3 (4.2-5.4); White Blood Count 6.2 K/mm3 (4.5-10.0)
[2025-03-02 06:56] LABS: Alanine Aminotransferase 19 U/L (6-35); Albumin Level 2.8 g/dL (3.5-5.1); Alkaline Phosphatase 252 U/L (38-126); Anion Gap 5 mmol/L (4-12); Aspartate Amino Transferase 38 U/L (14-36); Bilirubin,Total 4.4 mg/dL (0.2-1.3); Blood Urea Nitrogen 30 mg/dL (7-17); Calcium 8.7 mg/dL (8.4-10.2); Carbon Dioxide 22 mmol/L (22-30); Chloride 104 mmol/L (98-107); Estimated CRCL calculation 83 ml/min; Estimated Glomerular Filt Rate 54; Glucose 84 mg/dL (65-110); Potassium 3.6 mmol/L (3.4-5.0); Sodium 131 mmol/L (137-145); Total Protein 5.6 g/dL (6.3-8.2)
--- NOTE | 2025-03-02 08:17 | PCPTNOTE ---
Attempted to see patient fore PT, however patient was in restroom and patient's significant other asked PT to come back later.
[2025-03-02] MEDS: METOPROLOL TARTRATE 25 MG TABLET PO ×2 (08:58→22:28)
[2025-03-02] MEDS: SPIRONOLACTONE 50 MG TABLET PO (08:59)
[2025-03-02] MEDS: VENLAFAXINE HCL XR 75 MG CAP.ER.24H 225 MG PO (08:59)
[2025-03-02] MEDS: PANTOPRAZOLE SOD SESQUIHYDRATE 20 MG TAB PO (09:00)
[2025-03-02] MEDS: FUROSEMIDE 20 MG TABLET PO (09:00)
--- NOTE | 2025-03-02 13:28 | PM.IMPN2 ---
Assessment and Plan Assessment and Plan (1) Anemia: Qualifiers: Anemia type: unspecified type Qualified Code(s): D64.9 - Anemia, unspecified Code(s): D64.9 - Anemia, unspecified Status: Acute Assessment and Plan: H/H 5.8/19.2 on admission, per PCP 02/03 Hgb 7.2 Chronic anemia secondary to autoimmune hepatitis, likely further exacerbated due to acute injury and possible iron deficiency as patient states previously on iron supplements and self discontinued Iron panel showing iron deficiency anemia, resumed iron supplement No signs of active bleeding, denies blood in urine and stool. No gross bruising or noted hematoma on exam or imaging. Received 2 units pRBC on admission, repeat H/H improved. H/H remains stable. (2) Multiple closed stable fractures of pubic ramus: Code(s): S32.599A - Other specified fracture of unspecified pubis, initial encounter for closed fracture Status: Acute Assessment and Plan: Mechanical ground level fall, no LOC or head strike Hip/pelvis XR: Left hip arthroplasty intact without associated fracture or dislocation. No pelvic fracture identified but pubic rami poorly seen due to soft tissue attenuation. Single view right hip arthroplasty intact. Knee XR: Arthroplasty intact without associated fracture or effusion. Small posterior calcifications or joint bodies. Pelvis CT: Minimally displaced fractures of the left sacral ala, left superior pubic ramus and left pubic body. 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 - SCDs/TEDs - Analgesics: tylenol 500 mg q6h scheduled, IV morphine 2 mg IV q4h, oxycodone 5 mg q4prn well controlled on current oral regimen - monitor labs in AM - CBC and BMP - PT/OT recommending SNF placement vs , patient planning to return home with home health weight bearing as tolerated per ortho - Ortho consulted No plan for surgery. F/u in office in 2 weeks (3) Closed sacral fracture: Qualifiers: Encounter type: initial encounter Zone of sacrum fracture: unspecified portion of sacrum Qualified Code(s): S32.10XA - Unspecified fracture of sacrum, initial encounter for closed fracture Code(s): S32.10XA - Unspecified fracture of sacrum, initial encounter for closed fracture Status: Acute Assessment and Plan: See plan above #2 (4) Tachycardia: Code(s): R00.0 - Tachycardia, unspecified Status: Acute Assessment and Plan: Chronic sinus tachycardia Continue metoprolol 25 mg BID Offset Pressman: Dr. 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 Winkler and Transplant Dr. Willard at [facility] Discussed patient with her PCP Dr. Satish Tomlinson who states that prior labs 02/03: tot bili 7, with low AST and ALT and alk phos in the 200s. LFTs at baseline. Will continue lasix 20 mg daily, spironolactone 50 mg daily and prednisone 7.5 mg daily Venous dopplers ordered to rule out DVT, negative Medical Record Review I have reviewed the following patient records and this information was taken into consideration when formulating the assessment and plan.: previous labs Consultations Consultations: I have discussed the care of this pt with the consulting providers. (PCP) Time Spent With Patient Time with patient: 25 - 35 minutes Subjective Date/time seen: 03/02/25 13:28 Interval history: 45 year old female with past medical history of rheumatoid arthritis, interstitial lung disease, autoimmune hepatitis and Sinus tachycardia presents to the hospital for ground level fall resulting in left hip and knee pain. Patient is pleasant working with physical therapy at time of assessment. She continues to endorse pain to the groin/hip and associated muscle spasms. She otherwise has no complaints denying chest pain, palpitations, shortness of breath, nausea/vomiting and abdominal pain. Review of Systems Review of Systems: All systems reviewed & are unremarkable except as noted in HPI and below Exam Narrative: AF HR 74 RR 20 Spo2 99 BP 109/53 General: female in no acute respiratory distress who is nontoxic appearing, ambulating through room while working with PT HEENT: Extraocular movement intact. Mild jaundice. No facial asymmetry. Chest: Lungs are clear to auscultation bilaterally. No wheezes or crackles. CV: Heart was regular rate rhythm. Abd: Abdomen was soft. Nontender. Nondistended. Positive bowel sounds. Ext: No clubbing, cyanosis. trivial edema to lower extremities but pitting to the feet, improved from yesterday. DP pulses bilaterally. No bruising to the left hip noted. Neuro: Patient is alert. Speech is clear. Objective Data Vital Signs Vital Signs: Vital Signs - 24 hr 03/01/25 16:47 03/01/25 20:10 03/02/25 01:45 Temperature 97.5 F L 96.8 F L 96.4 F L Pulse Rate 82 83 81 Respiratory Rate 16 16 16 Blood Pressure 109/51 L 118/51 L 109/55 L Pulse Oximetry 98 98 98 Oxygen Delivery Fraction of Inspired Oxygen 03/02/25 05:00 03/02/25 07:46 03/02/25 08:00 Temperature 96.6 F L 98.1 F Pulse Rate 75 74 74 Respiratory Rate 20 20 Blood Pressure 118/61 103/47 L Pulse Oximetry 98 98 98 Oxygen Delivery Room Air Fraction of Inspired Oxygen 21 03/02/25 08:58 03/02/25 12:00 Temperature 98.5 F Pulse Rate 74 74 Respiratory Rate 20 Blood Pressure 109/53 L Pulse Oximetry 99 Oxygen Delivery Fraction of Inspired Oxygen Intake/Output Intake/Output: Intake & Output 02/27/25 02/28/25 03/01/25 03/02/25 23:59 23:59 23:59 23:59 Intake Total 9724 192 7092 500 Output Total 1700 2450 Balance -247 -2300 3180 500 Meds/Results Medications: Active Medications Generic Name Dose Route Start Last Admin Trade Name Freq PRN Reason Stop Dose Admin Acetaminophen 500 mg 02/28/25 15:00 03/02/25 08:59 Acetaminophen 500 Mg Tablet PO 500 mg Q6H KYLEE Administration Amitriptyline HCl 50 mg 02/27/25 21:00 03/01/25 21:20 Amitriptyline Hcl 25 Mg Tablet PO 50 mg QHS KYLEE Administration Furosemide 20 mg 02/27/25 09:00 03/02/25 09:00 Furosemide 20 Mg Tablet PO 20 mg QAM KYLEE Administration Ipratropium [place] 0.5 mg 03/01/25 12:35 Ipratropium Br 0.02% Inh Soln 0.5 Mg/2.5 Ml Vial INHALATION Q6HRT PRN Shortness Of Breath Or Wheezing Levalbuterol HCl 0.63 mg 03/01/25 12:35 Levalbuterol Neb 1.25 Mg/3 Ml INHALATION Q6HRT PRN Shortness Of Breath Or Wheezing Metoprolol Tartrate 25 mg 02/27/25 09:00 03/02/25 08:58 Metoprolol Tartrate 25 Mg Tablet PO 25 mg Q12HR KYLEE Administration Morphine Sulfate 2 mg 02/27/25 08:26 02/28/25 12:33 Morphine Sulfate (*Crx) 4 Mg/Ml Inj IV PUSH 2 mg Q4H PRN Administration Pain Rated 7-10 Home Med (Immun 14 gm 02/28/25 10:20 02/28/25 14:02 Glob G(Igg)-Gly-Iga SUB-Q 03/30/25 10:19 14 gm Ov50 [Gammagard WEEKLY KYLEE Administration Liquid] 10 % Solution) Oxycodone HCl 5 mg 02/28/25 14:42 03/02/25 11:02 Oxycodone Hcl (*Crx) 5 Mg Tab Ir PO 5 mg Q4H PRN Administration Pain Rated 7-10 Pantoprazole Sodium 20 mg 02/27/25 09:00 03/02/25 09:00 Pantoprazole Sod Sesquihydrate 20 Mg Tab PO 20 mg QAM [facility] Administration Prednisone 7.5 mg 02/27/25 09:00 03/02/25 08:59 Prednisone 2.5 Mg Tablet PO 7.5 mg QAM KYLEE Administration Spironolactone 50 mg 02/27/25 09:00 03/02/25 08:59 Spironolactone 50 Mg Tablet PO 50 mg QAM YKLEE Administration Ursodiol 1,500 mg 02/27/25 17:00 03/01/25 16:15 Ursodiol 300 Mg Capsule PO 1,500 mg DAILY@1700 [facility] Administration Venlafaxine HCl 225 mg 02/27/25 09:00 03/02/25 08:59 Venlafaxine Hcl Xr 75 Mg Cap.Er.24h PO 225 mg QAM [facility] Administration Radiology Results: ITS Impressions Venous Doppler Study 02/28/25 16:26 IMPRESSION: 1. No evidence of DVT involving major veins of both Pelvis CT 02/28/25 19:30 IMPRESSION: 1. Minimally displaced fractures of the left sacral ala, left superior pubic ramus and left pubic body. 2. 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 Labs Labs: Laboratory Results - last 24 hr 03/01/25 03/02/25 14:30 06:14 WBC 6.2 RBC 3.01 L Hgb 7.7 L Hct 23.9 L MCV 79.4 L MCH 25.6 L MCHC 32.2 RDW 16.7 H Plt Count 245 MPV 10.6 H Sodium 131 L Potassium 3.6 Chloride 104 Carbon Dioxide 22 Anion Gap 5 BUN 30 H Creatinine 1.11 H Estim Creat Clear Calc 83 Estimated GFR 54 L Glucose 84 Calcium 8.7 Iron 26 L TIBC 345 % Saturation 8 L Ferritin 23.40 Total Bilirubin 4.4 H AST 38 H ALT 19 Alkaline Phosphatase 252 H Total Protein 5.6 L Albumin 2.8 L Quality VTE Prophylaxis VTE prophylaxis: mechanical ordered
[2025-03-02] MEDS: AMITRIPTYLINE HCL 25 MG TABLET 50 MG PO (22:28)
[2025-03-03 00:50] VITALS: BP 127/59; PULSE 81; RESP 16; TEMP 36.1; O2SAT 98
[2025-03-03] MEDS: oxyCODONE HCL (*CRX) 5 MG TAB IR PO ×2 (03:28→09:05)
[2025-03-03] MEDS: ACETAMINOPHEN 500 MG TABLET PO ×2 (03:28→09:06)
[2025-03-03 06:55] VITALS: BP 118/60; PULSE 83; RESP 16; TEMP 35.9; O2SAT 97
[2025-03-03 07:01] LABS: Hematocrit 24.2 % (37.0-47.0); Hemoglobin 7.6 g/dL (12.0-15.0); Mean Corpuscular HGB Conc 31.4 g/dl (32-36); Mean Corpuscular Hemoglobin 25.4 pg (26-34); Mean Corpuscular Volume 80.9 fl (80-100); Platelet Count Result 242 k/mm3 (150-375); Red Blood Count 2.99 M/mm3 (4.2-5.4); White Blood Count 6.5 K/mm3 (4.5-10.0)
[2025-03-03 07:13] LABS: Alanine Aminotransferase 19 U/L (6-35); Albumin Level 2.7 g/dL (3.5-5.1); Alkaline Phosphatase 259 U/L (38-126); Anion Gap 8 mmol/L (4-12); Aspartate Amino Transferase 44 U/L (14-36); Bilirubin,Total 3.8 mg/dL (0.2-1.3); Blood Urea Nitrogen 34 mg/dL (7-17); Calcium 8.8 mg/dL (8.4-10.2); Carbon Dioxide 23 mmol/L (22-30); Chloride 102 mmol/L (98-107); Estimated CRCL calculation 73 ml/min; Estimated Glomerular Filt Rate 46; Glucose 93 mg/dL (65-110); Potassium 3.8 mmol/L (3.4-5.0); Sodium 133 mmol/L (137-145); Total Protein 5.5 g/dL (6.3-8.2)
[2025-03-03 08:00] VITALS: BP 124/62; PULSE 92; RESP 20; TEMP 36.1; O2SAT 98
[2025-03-03] MEDS: VENLAFAXINE HCL XR 75 MG CAP.ER.24H 225 MG PO (09:05)
[2025-03-03] MEDS: PANTOPRAZOLE SOD SESQUIHYDRATE 20 MG TAB PO (09:06)
[2025-03-03] MEDS: SPIRONOLACTONE 50 MG TABLET PO (09:06)
[2025-03-03] MEDS: METOPROLOL TARTRATE 25 MG TABLET PO (09:06)
[2025-03-03] MEDS: FUROSEMIDE 20 MG TABLET PO (09:06)
[2025-03-03] MEDS: FERROUS SULFATE 325 MG TABLET PO (09:06)
--- NOTE | 2025-03-03 10:10 | P.DS_ITS ---
DS: Admitting Diagnosis Discharge Date 03/03 Admitting Diagnosis fall DS: Discharge Diagnosis Discharge Diagnosis (1) Anemia: Qualifiers: Anemia type: unspecified type Qualified Code(s): D64.9 - Anemia, unspecified Code(s): D64.9 - Anemia, unspecified Status: Acute (2) Multiple closed stable fractures of pubic ramus: Code(s): S32.599A - Other specified fracture of unspecified pubis, initial encounter for closed fracture Status: Acute (3) Closed sacral fracture: Qualifiers: Encounter type: initial encounter Zone of sacrum fracture: unspecified portion of sacrum Qualified Code(s): S32.10XA - Unspecified fracture of sacrum, initial encounter for closed fracture Code(s): S32.10XA - Unspecified fracture of sacrum, initial encounter for closed fracture Status: Acute (4) Tachycardia: Code(s): R00.0 - Tachycardia, unspecified Status: Acute (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 Patient stated that she was ambulating at when she felt something attached to her right foot. Therefore she tripped and fell landed on side. She denies hitting her head or losing consciousness. Patient also endorses some pain to her right knee as well. She has had a history of right knee replacement in both hips replaced the past by physician at [facility]. CT the he pelvis shows a subtle nondisplaced fracture of the left sacral wing as well the left superior and inferior pubic rami. The patient was given morphine, oxycodone, and Zofran as well as IV was to the emergency room. Ortho has been consulted. Her H&H was found to be 5.819.2. She has been typed and cross-matched for 2 units of blood. The 1st unit is currently infusing. Patient endorses an autoimmune disease that affects her liver. Her total bilirubin is 3.9, AST is 37, alkaline phosphatase 223 total protein 0.8 albumin is 2.9. The patient is being admitted to observation status on the date of service 02/27/2025. Ortho, Dr Miller was consulted. # Pelvic fracture: Plan 45 yr old female with a long history of RA with Bilateral TURNER and Left TKA all done around [address] Osmani Logan at [place]. Lives at home with significant other. She tripped (not sure how) landed on to Left Hip. Noted to have left pubic rami fracture Left side with no periprosthetic fracture by CT Scan. RA also now involving her liver. - plan physical therapy and social work consult today. - weight bearing as tolerated. - sitting up most of the day in a chair - incentive spirometer (ordered) - doppler negative for DVT - significant other in room and involved in patients care. - follow up with my office in 2 weeks. # Anemia: H/H 5.8/19.2 on admission, per PCP 02/03 Hgb 7.2 Chronic anemia secondary to autoimmune hepatitis, likely further exacerbated due to acute injury and possible iron deficiency as patient states previously on iron supplements and self discontinued Iron panel showing iron deficiency anemia, resumed iron supplement No signs of active bleeding, denies blood in urine and stool. No gross bruising or noted hematoma on exam or imaging. Received 2 units pRBC on admission, repeat H/H improved. H/H remains stable. # Tachycardia: Chronic sinus tachycardia Continue metoprolol 25 mg BID Yoga Coordinator: Dr. Butch BARROS # Autoimmune liver disease: Chronic, followed by GI Dr. Winkler and Transplant Dr. Willard at [facility] Discussed patient with her PCP Dr. Satish Tomlinson who states that prior labs 02/03: tot bili 7, with low AST and ALT and alk phos in the 200s. LFTs at baseline. Will continue lasix 20 mg daily, spironolactone 50 mg daily and prednisone 7.5 mg daily Venous dopplers ordered to rule out DVT, negative Time Spent with Patient Time attestation: Total time spent providing and/or coordinating discharge services: Exam Narrative: General: female in no acute respiratory distress who is nontoxic appearing, ambulating through room while working with PT HEENT: Extraocular movement intact. Mild jaundice. No facial asymmetry. Chest: Lungs are clear to auscultation bilaterally. No wheezes or crackles. CV: Heart was regular rate rhythm. Abd: Abdomen was soft. Nontender. Nondistended. Positive bowel sounds. Ext: No clubbing, cyanosis. trivial edema to lower extremities but pitting to the feet, improved from yesterday. DP pulses bilaterally. No bruising to the left hip noted. Neuro: Patient is alert. Speech is clear. Const: General: cooperative, no acute distress, well developed, awake and Physically active Nutritional Appearance: average body habitus and well nourished Orientation/consciousness: oriented to person, oriented to place, oriented to time and patient oriented x3 Limitations: no limitations HENMT: Head: normal to inspection, normocephalic and atraumatic Eyes: General: appearance normal, both eyes and all related structures Alignment and Position: alignment normal Periorbital: periorbital findings normal Eyelids: eyelids normal Conjunctivae: conjunctivae normal Sclera: sclerae normal Cornea: corneas normal Pupils: Equal, round and reactive pupils present and Pupil accommodation reflex normal EOM: EOMs intact bilaterally Neck: Neck: normal visual inspection Chest: Chest palpation & inspection: normal inspection of the chest Resp: Effort & Inspection: normal respiratory effort Cardio: Palpation: normal PMI Rhythm: regular rhythm Heart sounds: S1 normal heart sound present and S2 normal heart sound present Peripheral pulses: Peripheral pulses 2+ throughout GI: Inspection: normal to inspection Auscultation: normal bowel sounds Rectal Exam: deferred : General: Yes no CVA tenderness Back/Spine/Pelvis: Back: no CVA tenderness Cervical Spine: cervical ROM normal Skin: General skin exam: normal color Lesions: no lesions Rashes: no rashes Trauma: no lacerations or abrasions Wounds: no wounds Hair: normal Nails: normal Neuro: General: oriented to person, oriented to place, oriented to time and patient oriented x3 Cranial nerves: Yes Equal, round and reactive pupils present and Yes Normal hearing present Cognition (Neuro): normal cognition Speech: normal speech Sensory Exam: normal sensation Extrem: General: normal to inspection Right upper extremity: normal to inspection and shoulder/upper arm Left upper extremity: normal to inspection and shoulder/upper arm Other: 4+ pitting edema to bilateral lower extr emities. Psych: Appearance: grossly normal Mental Status: mental status grossly normal Speech and movement: Normal speech and movement present Affect: normal affect Attitude: cooperative Thought process: Normal thought process present DS: Data Data Completed and Pending Labs on day of discharge: Labs from last 24 hours 03/03/25 05:42 WBC 6.5 RBC 2.99 L Hgb 7.6 L Hct 24.2 L MCV 80.9 MCH 25.4 L MCHC 31.4 L RDW 16.9 H Plt Count 242 MPV 11.1 H Sodium 133 L Potassium 3.8 Chloride 102 Carbon Dioxide 23 Anion Gap 8 BUN 34 H Creatinine 1.28 H Estim Creat Clear Calc 73 Estimated GFR 46 L Glucose 93 Calcium 8.8 Total Bilirubin 3.8 H AST 44 H ALT 19 Alkaline Phosphatase 259 H Total Protein 5.5 L Albumin 2.7 L Discharge Plan Discharge Attending physician on discharge: Malgorzata Saha Consulting providers: Theresa Peguero; Shane Miller Discharging Clinician: Theresa Peguero Patient Disposition: Home with Home Health Service Activity: as tolerated Diet: as tolerated Discharge Instructions: Discharge disposition: Take medications as prescribed Monitor blood pressures Take caution while standing, rising, or moving Change positions slowly taking a break between each position change If you standing feel dizzy sit back down and take a break Encouraged to continue with yearly vaccinations Return to the emergency department if he developed sudden shortness of breath, chest pain, nausea, vomiting, upset stomach or intractable diarrhea Return to the emergency department if you develop fever greater than 100.5 Follow-up with the primary care physician within 1-2 weeks Care Coordination: Patient to have [facility] for PT/OT eval and treat, and assisted. Their phone number is [phone], if you have any questions; they will contact you to schedule their visits. RN Please fax discharge instructions to [phone]. Thank you for [facility] for your healthcare needs Patient Instructions: Antibiotic Form Patient Language: French Stand Alone Forms: General Discharge Information Follow-up/Referrals: Jazmin,Yari Link MD [Primary Care Provider, Unknown] - 1 Week Shane Miller MD [Physician, Orthopedics] - Call for Appointment Discharge Medications: New oxycodone 5 mg Tablet 5 mg PO Q4H PRN (Reason: Pain Rated 7-10) Qty: 12 0RF Continued amitriptyline 25 mg tablet 50 mg PO QHS furosemide 20 mg tablet 20 mg PO QAM metoprolol tartrate 25 mg tablet 25 mg PO BID pantoprazole 20 mg tablet,delayed release (DR/EC) 20 mg PO QAM Patient Comments: Take 30 before breakfast prednisone 5 mg tablet 7.5 mg PO QAM spironolactone 50 mg tablet 50 mg PO QAM ursodiol 300 mg capsule 1,500 mg PO QAM venlafaxine 150 mg capsule,extended release 24hr 150 mg PO QAM Patient Comments: Take with 75 mg to equal 225 mg daily venlafaxine 75 mg capsule,extended release 24hr 75 mg PO QAM Patient Comments: Take with 150 mg tablet to equal 225 mg daily Gammagard Liquid 10 % solution 14 g subcut WEEKLY Patient Comments: Takes on Saturday Date of admission: 02/27/25 02:40 Primary Care Provider: Jazmin,Yari Link Admitting Provider: Felipe Wong Attending physician on admission: Felipe Wong Condition: Stable Quality VTE Prophylaxis VTE prophylaxis: mechanical ordered Hospitalist MIPS Heart Failure (Exclusion) Patient has history of Heart Transplant or Left Ventricular Assistive Device?: No IF YES, STOP HERE Heart Failure (Qualifier) Patient has current or prior documentation of LVEF less than or equal to 40%, or mod/servere depressed LVSF?: No IF NO, STOP HERE
== END 2025-03-03 12:21 | disposition home health service (06) ==
LOC: ANHED 02-27 02:50 → ANH3MEDSUR 02-27 03:44
PROVIDERS: Nurse Practitioner; Physician Assistant; Student in an Organized Health Care Education/Training Program; Admitting Provider Internal Medicine; Emergency Provider Student in an Organized Health Care Education/Training Program; PCP Family Medicine; Visit Provider Nurse Practitioner
DX: S32.512A Fracture of superior rim of left pubis, initial encounter for closed fracture (principal); S32.592A Other specified fracture of left pubis, initial encounter for closed fracture; S32.10XA Unspecified fracture of sacrum, initial encounter for closed fracture; D64.9 Anemia, unspecified; K74.60 Unspecified cirrhosis of liver; W01.0XXA Fall on same level from slipping, tripping and stumbling without subsequent striking against object, initial encounter; K76.89 Other specified diseases of liver; J84.89 Other specified interstitial pulmonary diseases; R60.9 Edema, unspecified; R00.0 Tachycardia, unspecified; D89.89 Other specified disorders involving the immune mechanism, not elsewhere classified; M06.9 Rheumatoid arthritis, unspecified; G47.33 Obstructive sleep apnea (adult) (pediatric); Z96.651 Presence of right artificial knee joint; Z96.643 Presence of artificial hip joint, bilateral; F41.8 Other specified anxiety disorders
CPT/HCPCS: 36415; 36430; 72192; 73502; 73562; 80053; 82728; 83540; 83550; 85014; 85018; 85025; 85027; 85610; 85730; 86850; 86900; 86901; 86923; 93970; 94640; 96361; 96374; 96375; 96376; 97110; 97116; 97161; 97165; 97530; 97535; 99285; A9270; G0378; G0379; J2270; J2405; J7050; P9016